=== PATIENT | male | born 1945 | race Caucasian/White ===

== ENCOUNTER 2020-06-26 10:29 | Outpatient (REF) | payer MEDICARE, SELFPAY ==
[2020-06-26 13:50] LABS: MANUAL DIFF FLAG NO
[2020-06-26 13:58] LABS: Basophils Absolute Auto 0.1 X10*3/uL (0.0-0.2); Basophils Percent Auto 1.4 % (0-2); Eosinophils Absolute Auto 0.4 X10*3/uL (0.0-0.4); Hematocrit 40.5 % (42-52); Hemoglobin 13.4 g/dl (14.0-18.0); Imm Gran Abs Auto 0.01 X10*3/uL (0.00-0.03); Imm Gran Pct Auto 0.2 % (0.0-0.4); Lymphocytes Absolute Auto 1.6 X10*3/uL (1.2-4.9); Lymphocytes Percent Auto 26.1 % (20-40); Mean Corpuscular HGB Conc 33.1 g/dl (31.0-36.0); Mean Corpuscular Hemoglobin 32.3 pg (27.0-33.0); Mean Corpuscular Volume 97.6 fL (80-98); Mean Platelet Volume 10.7 fL (9.4-12.4); Monocytes Absolute Auto 0.9 X10*3/uL (0.1-1.2); Monocytes Percent Auto 14.8 % (2-11); Neutrophils Absolute Auto 3.2 X10*3/uL (2.0-8.3); Neutrophils Percent Auto 50.5 % (45-73); Platelet Count 353 X10*3/uL (160-400); Red Blood Count 4.15 X10*6/uL (4.60-5.80); White Blood Count 6.3 X10*3/uL (4.8-10.8)
[2020-06-26 14:40] LABS: Alanine Aminotransferase 21 U/L (0-40); Albumin Level 4.5 g/dL (3.5-5.0); Alkaline Phosphatase 72 U/L (39-117); Anion Gap 15 (12-20); Aspartate Amino Transferase 23 U/L (5-37); Bilirubin Total 0.8 mg/dL (0.0-1.0); Blood Urea Nitrogen 14 mg/dL (9-16); Calcium 9.2 mg/dL (8.4-10.2); Carbon Dioxide 28 mmol/L (22-29); Chloride 99 mmol/L (96-108); Cholesterol 160 mg/dL; Estimated Glomerular Filt Rate > 60; Glucose Fasting 101 mg/dL (60-99); HDL Cholesterol 84 mg/dL; LDL Cholesterol Calculated 68 mg/dl; Potassium 4.9 mmol/l (3.3-5.1); Sodium 137 mmol/L (135-145); Total Protein 7.7 g/dL (6.5-8.0); Triglycerides 44 mg/dL
== END 2020-06-26 10:30 | disposition home or self-care (01) ==
LOC: HO.HMGCLDS 10:29
PROVIDERS: PCP Internal Medicine; Visit Provider Internal Medicine
DX: I25.10 Atherosclerotic heart disease of native coronary artery without angina pectoris (principal); I10 Essential (primary) hypertension; E78.00 Pure hypercholesterolemia, unspecified; K21.9 Gastro-esophageal reflux disease without esophagitis
CPT/HCPCS: 36415; 80053; 80061; 85025

== ENCOUNTER 2020-07-04 14:00 | Outpatient (REF) | payer MEDICARE, SELFPAY ==
--- NOTE | 2020-07-04 14:01 | XR_ITS ---
EXAMINATION: XR SHOULDER, RIGHT CLINICAL INFORMATION: Pain. COMPARISON: None. TECHNIQUE: AP external rotation, Grashey, scapular Y, and axillary views of the right shoulder. FINDINGS: There is mild cephalic migration of humeral head in relation to the glenoid. Mild reduction of the right AC joint space is seen. No visible fracture, dislocation or loose bodies. XR/XR shoulder RT min 2V IMPRESSION: Mild degenerative changes right AC joint. Cephalic migration of humeral head in relation to the glenoid, suspicious for degeneration of rotator cuff. Correlate with MRI right shoulder.
== END 2020-07-04 14:01 | disposition home or self-care (01) ==
LOC: HO.HOSX 14:00
PROVIDERS: PCP Internal Medicine; Referring Provider Internal Medicine; Visit Provider Orthopaedic Surgery
DX: M25.511 Pain in right shoulder (principal); M75.101 Unspecified rotator cuff tear or rupture of right shoulder, not specified as traumatic; M12.811 Other specific arthropathies, not elsewhere classified, right shoulder
CPT/HCPCS: 20610; 73030; 99212; J1040

== ENCOUNTER 2020-09-19 11:13 | Outpatient (REF) | payer MEDICARE, SELFPAY ==
[2020-09-19 15:09] LABS: Glucose Urine UA NEG (NEG); Leukocyte Esterase Urine 3+ (NEG); Nitrite Urine NEG (NEG); PH 7.5 (5.0-8.0); Specific Gravity - Urine 1.015 (1.005-1.025); Urine Blood 1+ (NEG); Urine Ketones NEG (NEG); Urine Protein TRACE MG/DL (NEG-TRACE)
[2020-09-19 15:14] LABS: Appearance Urine CLOUDY; Color Urine YELLOW
[2020-09-19 15:22] LABS: Squamous Epithelial Cell Urine TRACE /LPF; WBC Urine TNTC /HPF (0-4)
[2020-09-19 15:23] LABS: Bacteria Urine 1+ /LPF
== END 2020-09-19 11:14 | disposition home or self-care (01) ==
LOC: HO.HMGCLDS 11:13
PROVIDERS: PCP Internal Medicine; Visit Provider Internal Medicine
DX: R35.0 Frequency of micturition (principal)
CPT/HCPCS: 81001; 87086

== ENCOUNTER 2020-10-05 13:30 | Outpatient (REF) | payer MEDICARE, SELFPAY ==
--- NOTE | ~2020-10-05 | XR_ITS ---
EXAMINATION: XR PELVIS XR SACRUM AND COCCYX XR SACROILIAC JOINTS CLINICAL INFORMATION: Traumatic coccydynia. COMPARISON: None TECHNIQUE: AP pelvis 1 view. SI joints 2 views, and sacrum and coccyx 3 views. FINDINGS: AP PELVIS: There is mild reduction in bilateral hip joint space. SI joint space is preserved. No visible fracture, lytic process seen. There is a large enthesophyte along the anterior-inferior iliac spine likely old avulsion injury. There are vascular calcifications seen bilaterally. Mild degenerative disc changes at L4-L5 and L5-S1 disc levels are noted. BILATERAL SI JOINTS: The SI joint space is preserved with no bony erosive changes or sclerosis. No lytic process. SACRUM AND COCCYX: There is mild osteopenia. No visible lytic or sclerotic process seen. There is no fracture seen either. 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 There is a moderate-sized anterior-inferior enthesophyte. Bilateral SI joint space is preserved. There is no acute fracture or lytic process involving the sacrum or coccyx.
--- NOTE | ~2020-10-05 | XR_ITS ---
EXAMINATION: XR PELVIS XR SACRUM AND COCCYX XR SACROILIAC JOINTS CLINICAL INFORMATION: Traumatic coccydynia. COMPARISON: None TECHNIQUE: AP pelvis 1 view. SI joints 2 views, and sacrum and coccyx 3 views. FINDINGS: AP PELVIS: There is mild reduction in bilateral hip joint space. SI joint space is preserved. No visible fracture, lytic process seen. There is a large enthesophyte along the anterior-inferior iliac spine likely old avulsion injury. There are vascular calcifications seen bilaterally. Mild degenerative disc changes at L4-L5 and L5-S1 disc levels are noted. BILATERAL SI JOINTS: The SI joint space is preserved with no bony erosive changes or sclerosis. No lytic process. SACRUM AND COCCYX: There is mild osteopenia. No visible lytic or sclerotic process seen. There is no fracture seen either. XR/XR sacrum coccyx min 2V IMPRESSION: Mild degenerative arthritic changes bilateral hip joints. There is a moderate-sized anterior-inferior enthesophyte. Bilateral SI joint space is preserved. There is no acute fracture or lytic process involving the sacrum or coccyx.
--- NOTE | ~2020-10-05 | XR_ITS ---
EXAMINATION: XR PELVIS XR SACRUM AND COCCYX XR SACROILIAC JOINTS CLINICAL INFORMATION: Traumatic coccydynia. COMPARISON: None TECHNIQUE: AP pelvis 1 view. SI joints 2 views, and sacrum and coccyx 3 views. FINDINGS: AP PELVIS: There is mild reduction in bilateral hip joint space. SI joint space is preserved. No visible fracture, lytic process seen. There is a large enthesophyte along the anterior-inferior iliac spine likely old avulsion injury. There are vascular calcifications seen bilaterally. Mild degenerative disc changes at L4-L5 and L5-S1 disc levels are noted. BILATERAL SI JOINTS: The SI joint space is preserved with no bony erosive changes or sclerosis. No lytic process. SACRUM AND COCCYX: There is mild osteopenia. No visible lytic or sclerotic process seen. There is no fracture seen either. 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 There is a moderate-sized anterior-inferior enthesophyte. Bilateral SI joint space is preserved. There is no acute fracture or lytic process involving the sacrum or coccyx.
== END 2020-10-05 13:31 | disposition home or self-care (01) ==
LOC: HO.HMGCX 13:30
PROVIDERS: PCP Internal Medicine; Visit Provider Internal Medicine
DX: M53.3 Sacrococcygeal disorders, not elsewhere classified (principal)
CPT/HCPCS: 72170; 72200; 72220

== ENCOUNTER → 2020-10-16 11:36 | Outpatient (BNVA) | payer MEDICARE, SELFPAY | PROVIDERS: PCP Internal Medicine; Visit Provider Urology | DX: Z13.89 Encounter for screening for other disorder (principal) | CPT/HCPCS: 99202 ==

== ENCOUNTER → 2020-12-05 13:55 | Outpatient (BNVA) | payer MEDICARE, SELFPAY | PROVIDERS: Visit Provider Urology | DX: N32.3 Diverticulum of bladder (principal) | CPT/HCPCS: 52000; 99212 ==

== ENCOUNTER 2021-07-08 10:07 | Outpatient (REF) | payer MEDICARE, SELFPAY ==
[2021-07-08 11:24] LABS: MANUAL DIFF FLAG NO
[2021-07-08 11:44] LABS: Basophils Absolute Auto 0.1 X10*3/uL (0.0-0.2); Basophils Percent Auto 0.5 % (0-2); Eosinophils Absolute Auto 0.5 X10*3/uL (0.0-0.4); Eosinophils Percent Auto 3.8 % (0-4); Hematocrit 39.1 % (42.0-52.0); Hemoglobin 12.9 g/dl (14.0-18.0); Imm Gran Abs Auto 0.05 X10*3/uL (0.00-0.03); Imm Gran Pct Auto 0.4 % (0.0-0.4); Lymphocytes Absolute Auto 1.3 X10*3/uL (1.2-4.9); Lymphocytes Percent Auto 10.9 % (20-40); Mean Corpuscular Hemoglobin 31.3 pg (27.0-33.0); Mean Corpuscular Volume 94.9 fL (80.0-98.0); Mean Platelet Volume 11.2 fL (9.4-12.4); Monocytes Absolute Auto 1.1 X10*3/uL (0.1-1.2); Monocytes Percent Auto 9.2 % (2-11); Neutrophils Absolute Auto 9.1 x10*3/uL (2.0-8.3); Neutrophils Percent Auto 75.2 % (45-73); Platelet Count 302 X10*3/uL (160-400); Red Blood Count 4.12 X10*6/uL (4.60-5.80); Red Cell Distribution Width 12.3 % (11.0-16.0); White Blood Count 12.1 X10*3/uL (4.8-10.8)
[2021-07-08 11:50] LABS: Appearance Urine CLEAR; Color Urine YELLOW; Glucose Urine UA NEG (NEG); Leukocyte Esterase Urine NEG (NEG); Nitrite Urine NEG (NEG); PH 6.5 (5.0-8.0); Specific Gravity - Urine 1.015 (1.005-1.025); Urine Blood NEG (NEG); Urine Ketones NEG (NEG); Urine Protein NEG (NEG-TRACE)
[2021-07-08 11:57] LABS: Alanine Aminotransferase 18 U/L (0-40); Albumin Level 4.2 g/dL (3.5-5.0); Alkaline Phosphatase 70 U/L (39-117); Anion Gap 11 (12-20); Aspartate Amino Transferase 20 U/L (5-37); Blood Urea Nitrogen 11 mg/dL (9-16); Calcium 8.7 mg/dL (8.4-10.2); Carbon Dioxide 27 mmol/L (22-29); Chloride 103 mmol/L (96-108); Cholesterol 142 mg/dL; Estimated Glomerular Filt Rate > 60; Glucose Fasting 96 mg/dL (60-99); HDL Cholesterol 77 mg/dL; LDL Cholesterol Calculated 54 mg/dl; Potassium 4.4 mmol/L (3.3-5.1); Sodium 137 mmol/L (135-145); Total Protein 7.3 g/dL (6.5-8.0); Triglycerides 55 mg/dL
[2021-07-08 12:30] LABS: Thyroid Stimulating Hormone 1.01 uIU/mL (0.32-4.0); Vitamin D 25-OH Total 52.3 ng/mL (>30)
[2021-07-08 14:26] LABS: Amorphous Sediment Urine TRACE /LPF; RBC Urine 0 /HPF (0); WBC Urine 0-2 /HPF (0-4)
== END 2021-07-08 10:08 | disposition home or self-care (01) ==
LOC: HO.HMGCLDS 10:07
PROVIDERS: PCP Internal Medicine; Visit Provider Internal Medicine
DX: N40.1 Benign prostatic hyperplasia with lower urinary tract symptoms (principal); I25.10 Atherosclerotic heart disease of native coronary artery without angina pectoris; E78.00 Pure hypercholesterolemia, unspecified; I10 Essential (primary) hypertension; Z12.5 Encounter for screening for malignant neoplasm of prostate
CPT/HCPCS: 36415; 80053; 80061; 81001; 82306; 84153; 84443; 85025

== ENCOUNTER 2021-07-12 14:39 | Outpatient (REF) | payer MEDICARE, SELFPAY ==
--- NOTE | ~2021-07-12 | CT_ITS ---
EXAMINATION: CT CHEST SCREENING CLINICAL INFORMATION: Former smoker. 54 pack-year history. COMPARISON: Previous chest x-ray and chest CT July 2013 TECHNIQUE: Multidetector volumetric CT imaging of the chest is performed without contrast using low dose technique. Additional 2D coronal and sagittal reformatted images and axial 3D maximum intensity projection (MIP) images are generated on the CT workstation. This CT examination was performed using dose optimization techniques as appropriate, variously including the following: *Automated exposure control *Adjustment of mA and/or kV according to patient size (this includes techniques or standardized protocols for targeted exams where dose is matched to indication/reason for exam; i.e. extremities or head) *Use of iterative reconstruction technique DLP: 54 mGy-cm FINDINGS: LUNGS: There is evidence of paraseptal emphysema. There is a 3 mm peripheral or subpleural right upper lobe nodule axial image 108 series 5. There were several clustered areas of increased groundglass attenuation in the left lower lobe. Largest measures 8 mm there is linear scarring or subsegmental atelectasis at the lung bases. Axial image 251 series 5. 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 The heart is upper normal in size. The thoracic aorta is upper normal in size and tortuous. There is no pericardial effusion. The thoracic aorta is normal in caliber. There are no enlarged hilar or mediastinal lymph nodes. There may be a small hiatal hernia. PLEURA: There is no pleural effusion. No pleural mass or thickening. AXILLA: No lymphadenopathy. UPPER ABDOMEN: There is diverticulosis of the colon. OSSEOUS STRUCTURES: There are degenerative changes of the spine. There is a L1 vertebral body compression fracture that is new in the interval from 2013. There are median sternotomy wires. CT/CT lung screening IMPRESSION: Mild emphysema. Small solid nodules or micronodules and several clustered groundglass attenuation left lower lobe nodules, largest measuring 8 mm. Post-CABG changes. L1 vertebral body compression fracture. This does not appear acute but is new in the interval from 2013 exams. ASSESSMENT: Lung-RADS category 2: Benign RECOMMENDATION: Annual low-dose chest CT follow-up recommended.
== END 2021-07-12 14:40 | disposition home or self-care (01) ==
LOC: HO.CT 14:39
PROVIDERS: Visit Provider Physician Assistant Medical
DX: Z12.2 Encounter for screening for malignant neoplasm of respiratory organs (principal); Z87.891 Personal history of nicotine dependence
CPT/HCPCS: 71271; G0296

== ENCOUNTER 2021-08-02 07:58 | Outpatient (REF) | payer MEDICARE, SELFPAY ==
--- NOTE | ~2021-08-02 | US_ITS ---
EXAMINATION: US RETROPERITONEAL LIMITED (AORTA) CLINICAL INFORMATION: Hypertension. Hypercholesterolemia. Coronary artery disease. COMPARISON: CT chest 08/12/2013. CT abdomen and pelvis 06/13/2015. TECHNIQUE: Mclaughlin-scale, color Doppler and spectral Doppler evaluation of the abdominal aorta. Technically limited study secondary to bowel gas. FINDINGS: There is fusiform dilatation of the abdominal aorta with 2 focal areas of increased diameter, none measuring more than 3 cm. The measurements of the aorta in maximum AP and transverse dimensions respectively are as follows: Proximal: 3.1 x 3.1 cm. Mid: 2.9 x 2.9 cm. Distal: 2.5 x 2.3 cm. PSV: 74 cm/s. The measurements of the common iliac arteries in maximum AP and TRV dimensions are as follows: Right Common Iliac Artery: 1.3 x 1.6 cm. Left Common Iliac Artery: 1.6 x 1.6 cm. Incidental note made of a posterior bladder diverticulum measuring 6 x 4.5 cm, slightly larger than noted at the time of the prior CT scan. US/US aorta IMPRESSION: 1. Calcific atherosclerotic changes are present with mild fusiform dilatation in 2 areas with a maximal diameter of only 3 cm. 2. Large posterior bladder diverticulum.
== END 2021-08-02 07:59 | disposition home or self-care (01) ==
LOC: HO.US 07:58
PROVIDERS: PCP Internal Medicine; Visit Provider Internal Medicine
DX: I10 Essential (primary) hypertension (principal); E78.00 Pure hypercholesterolemia, unspecified; I25.10 Atherosclerotic heart disease of native coronary artery without angina pectoris
CPT/HCPCS: 76775

== ENCOUNTER → 2021-08-27 09:35 | Outpatient (REF) | payer MEDICARE, SELFPAY ==
--- NOTE | 2021-08-27 09:30 | CA_ITS ---
Transthoracic Echocardiogram Patient (Last, First, Middle): Carlos Buckner D Gender: Male Date of : 1945 Age: 76 Procedure Date: 08/27/2021 Procedure Type: Transthoracic Echocardiogram Location: OP Height: 167.64 cm Weight: 66.68 kg BSA: 1.75 m2 Heart Rate: bpm BP: 118 / 60 mmHg Electrolysis Needle Operator: Referring MD: Jose R Figueroa MD DO Symptoms: I10 HTN I25.10 CAD W/O ANGINA E78.00 HYPERCHOLSETEROLEMIA Study Quality: Fair ECG Rhythm: Sinus with extra beats Conclusions: - Normal left ventricular size and systolic function. - Normal right ventricular cavity size and systolic function. - The left atrium is mildly dilated. Findings Left Ventricle Normal left ventricular size and systolic function. There is moderately increased left ventricular wall thickness. The visually estimated ejection fraction is between 55-60%. There is no evidence of regional wall motion abnormalities. Diastolic function is normal for age. Right Ventricle Normal right ventricular cavity size and systolic function. Atria The left atrium is mildly dilated. Aortic Valve Normal aortic valve structure and function. There is no aortic valve stenosis. There is trace (trivial) aortic valve regurgitation. Mitral Valve Normal mitral valve structure and function. There is trace mitral valve regurgitation. There is no mitral valve stenosis. Pulmonic Valve The pulmonic valve was not well visualized. Tricuspid Valve Normal tricuspid valve structure and function. There is no tricuspid valve regurgitation. Normal right atrial pressure. There is no evidence of pulmonary hypertension. Great Vessels All visible segments of the aorta are normal in size. The pulmonary artery was not well visualized. Venous The inferior vena cava is normal in size and collapses greater than 50% with inspiration. Pericardium/Pleural Normal pericardial structure. There is no evidence of pericardial effusion. Prior Study Comparison No prior study available for comparison. Measurements 2D Linear Measurements IVSd: 1.36 0.6-0.9/0.6-1.0 cm LVIDd: 4.55 3.9-5.3/4.2-5.9 cm LVIDd Index: 2.60 2.4-3.2/2.2-3.1 cm/m2 LVIDs: 3.09 2.0-3.6 cm LVPWd: 1.23 0.7-1.1 cm Ao Root: 3.40 2.1-3.5 cm LA Diam: 4.40 2.7-3.8/3.0-4.0 cm LAIDs Index: 2.51 1.5-2.3 cm/m2 LV Mass: 280.59 67-162/88-224 g LV Mass Index: 160.34 43-95/49-115 g/m2 LVOT Diam: 2.20 3.0+(-)1.3 cm Mitral Valve MV Pk E: 0.52 MV PK A: 0.75 MV Decel Time: 278.00 E/A: 0.70 E'Lateral: 11.40 E'Medial: 6.09 E/E' Med: 8.50 E/E' Lat: 4.50 PHT: 81.00 MVA PHT: 2.72 Decel Geary: 1.86 Aortic Valve AoV Pk Norman: 1.87 AoV Mn Norman: 1.16 AoV VTI: 0.42 AoV Pk Grad: 14.00 Aov Mn Grad: 7.00 EDDA Cont.VTI: 2.35 LVOT LVOT Pk Norman: 1.01 LVOT Mn Norman: 0.64 LVOT VTI: 0.26 LVOT Pk Grad: 4.00 LVOT Mn Grad: 2.00 LVOT Diam: 2.20 LVOT Area: 3.80 Diastolic Function MV Pk E: 0.52 MV Pk A: 0.75 E/A: 0.70 E'Medial: 6.09 E/E' Med: 8.50 E' Laterial: 11.40 E/E' Lat: 4.50 Right Ventricle TAPSE (mm): 21.00 Tricuspid Valve TR Pk Norman: 1.77 TR Pk Grad: 13.00 Great Vessels Aorta Ao Root-2D: 3.40 2.0-3.7 cm Ao Asc: 3.20 2.1-3.4 cm Pulmonary Valve PV Pk Norman: 1.29 Peak PV Grad: 7.00 Updated in Other Vendor System with Status of Final Francisco Shirley MD electronically signed on 08/27/2021 12:43:40 PM with status of Final
== END ==
LOC: HO.CARD 09:35
PROVIDERS: Visit Provider Internal Medicine
DX: I25.10 Atherosclerotic heart disease of native coronary artery without angina pectoris (principal); I10 Essential (primary) hypertension; E78.00 Pure hypercholesterolemia, unspecified
CPT/HCPCS: 93306

== ENCOUNTER → 2021-10-01 11:17 | Outpatient (BNVA) | payer MEDICARE, SELFPAY | PROVIDERS: PCP Internal Medicine; Visit Provider Surgery Vascular Surgery | DX: I71.4 Abdominal aortic aneurysm, without rupture (principal) | CPT/HCPCS: 99212 ==

== ENCOUNTER → 2022-01-13 10:41 | Outpatient (REF) | payer MEDICARE, SELFPAY ==
--- NOTE | ~2022-01-13 | NM_ITS ---
BONE SPECT STUDY OF THE LUMBOSACRAL AND LOWER THORACIC SPINE AND PLANAR IMAGES OF SPINE AND POSTERIOR PELVIS: CLINICAL INDICATION: Back pain, fell, lumbar spine to evaluate for ongoing fracture activity. PROCEDURE: Gamma scintillation camera images of the spine and posterior pelvis were performed 3 hours following the intravenous administration of 30 mCi Tc 99m MDP. Additional SPECT images were also obtained. Single photon emission tomography (SPECT) of the lumbosacral and lower thoracic spine was also performed using a hybrid SPECT/CT scanner acquiring 192 Projections of 30 seconds each over 360 degrees using a noncircular orbit and an acquisition matrix of [id number]. Transverse, coronal and sagittal projections and a cine volume were reconstructed. Nondiagnostic CT images were obtained for attenuation correction and localization. COMPARISON: No previous bone scan is available for comparison. The most recent radiographs available for comparison are of the sacroiliac joints, pelvis, sacrum, and coccyx dated 10/05/2020. FINDINGS: The planar images show a mild thoracolumbar scoliosis with lumbar convexity to the left. There is mildly to moderately increased activity in the L2 and L3 vertebra and in the left posterior elements at L5-S1. No other significant abnormalities are present in the visualized spine. In the other visualized bones there is mildly increased activity in both shoulders, more prominently on the right and faintly in the sternoclavicular joints bilaterally and also faintly in a midline well-healed sternotomy. The kidneys and urinary bladder are well visualized. The SPECT images show moderately increased activity in the superior endplate of L2 and mildly increased activity in the L3 vertebral body. There is mild compression deformity in the superior endplate of L2 and severe compression deformity in the L3 vertebral body on the corresponding CT images. Additional mild abnormalities bilaterally in the posterior elements at L4-L5 and L5-S1 corresponding to facet arthropathy on the CT images is also noted. No other significant abnormalities are present in the lumbosacral spine or posterior pelvis. There are no additional foci of abnormally increased activity visualized in the mid and lower thoracic spine. Incidentally noted is evidence of prior sternotomy with multiple sternal wires visible in the included portions of the lower sternum. NM/NM bone scan limited area IMPRESSION: Compression deformities associated with moderate abnormality in the superior endplate of L2 and less intense but significant abnormal activity in the L3 vertebral body which also shows severe compression deformity on the CT images. Additional mild abnormalities present bilaterally in the posterior elements at L4-L5 and L5-S1 are noted and are likely due to facet arthropathy.
--- NOTE | ~2022-01-13 | NM_ITS ---
BONE SPECT STUDY OF THE LUMBOSACRAL AND LOWER THORACIC SPINE AND PLANAR IMAGES OF SPINE AND POSTERIOR PELVIS: CLINICAL INDICATION: Back pain, fell, lumbar spine to evaluate for ongoing fracture activity. PROCEDURE: Gamma scintillation camera images of the spine and posterior pelvis were performed 3 hours following the intravenous administration of 30 mCi Tc 99m MDP. Additional SPECT images were also obtained. Single photon emission tomography (SPECT) of the lumbosacral and lower thoracic spine was also performed using a hybrid SPECT/CT scanner acquiring 192 Projections of 30 seconds each over 360 degrees using a noncircular orbit and an acquisition matrix of [id number]. Transverse, coronal and sagittal projections and a cine volume were reconstructed. Nondiagnostic CT images were obtained for attenuation correction and localization. COMPARISON: No previous bone scan is available for comparison. The most recent radiographs available for comparison are of the sacroiliac joints, pelvis, sacrum, and coccyx dated 10/05/2020. FINDINGS: The planar images show a mild thoracolumbar scoliosis with lumbar convexity to the left. There is mildly to moderately increased activity in the L2 and L3 vertebra and in the left posterior elements at L5-S1. No other significant abnormalities are present in the visualized spine. In the other visualized bones there is mildly increased activity in both shoulders, more prominently on the right and faintly in the sternoclavicular joints bilaterally and also faintly in a midline well-healed sternotomy. The kidneys and urinary bladder are well visualized. The SPECT images show moderately increased activity in the superior endplate of L2 and mildly increased activity in the L3 vertebral body. There is mild compression deformity in the superior endplate of L2 and severe compression deformity in the L3 vertebral body on the corresponding CT images. Additional mild abnormalities bilaterally in the posterior elements at L4-L5 and L5-S1 corresponding to facet arthropathy on the CT images is also noted. No other significant abnormalities are present in the lumbosacral spine or posterior pelvis. There are no additional foci of abnormally increased activity visualized in the mid and lower thoracic spine. Incidentally noted is evidence of prior sternotomy with multiple sternal wires visible in the included portions of the lower sternum. NM/NM bone SPECT IMPRESSION: Compression deformities associated with moderate abnormality in the superior endplate of L2 and less intense but significant abnormal activity in the L3 vertebral body which also shows severe compression deformity on the CT images. Additional mild abnormalities present bilaterally in the posterior elements at L4-L5 and L5-S1 are noted and are likely due to facet arthropathy.
== END ==
LOC: HO.NUCMED 10:41
PROVIDERS: PCP Internal Medicine; Visit Provider Physical Medicine & Rehabilitation
DX: S32.009S Unspecified fracture of unspecified lumbar vertebra, sequela (principal)
CPT/HCPCS: 78300; 78320; 78803; A9503

== ENCOUNTER → 2022-01-21 09:01 | Outpatient (BNVA) | payer MEDICARE, SELFPAY | PROVIDERS: PCP Internal Medicine; Referring Provider Internal Medicine; Visit Provider Surgery | DX: K40.90 Unilateral inguinal hernia, without obstruction or gangrene, not specified as recurrent (principal) | CPT/HCPCS: 99202 ==

== ENCOUNTER 2022-02-11 09:51 | Outpatient (REF) | payer MEDICARE, SELFPAY ==
[2022-02-11 11:43] LABS: MANUAL DIFF FLAG NO
[2022-02-11 11:58] LABS: Basophils Absolute Auto 0.1 X10*3/uL (0.0-0.2); Basophils Percent Auto 1.1 % (0-2); Eosinophils Absolute Auto 0.6 X10*3/uL (0.0-0.4); Eosinophils Percent Auto 8.6 % (0-4); Hematocrit 39.5 % (42.0-52.0); Hemoglobin 13.2 g/dl (14.0-18.0); Imm Gran Abs Auto 0.02 X10*3/uL (0.00-0.03); Imm Gran Pct Auto 0.3 % (0.0-0.4); Lymphocytes Absolute Auto 1.4 X10*3/uL (1.2-4.9); Lymphocytes Percent Auto 20.1 % (20-40); Mean Corpuscular HGB Conc 33.4 g/dl (31.0-36.0); Mean Corpuscular Hemoglobin 32.2 pg (27.0-33.0); Mean Corpuscular Volume 96.3 fL (80.0-98.0); Mean Platelet Volume 10.9 fL (9.4-12.4); Monocytes Absolute Auto 0.9 X10*3/uL (0.1-1.2); Monocytes Percent Auto 12.6 % (2-11); Neutrophils Absolute Auto 4.1 x10*3/uL (2.0-8.3); Neutrophils Percent Auto 57.3 % (45-73); Platelet Count 305 X10*3/uL (160-400); Red Cell Distribution Width 12.1 % (11.0-16.0); White Blood Count 7.1 X10*3/uL (4.8-10.8)
[2022-02-11 12:19] LABS: Alanine Aminotransferase 22 U/L (0-40); Albumin Level 4.2 g/dL (3.5-5.0); Alkaline Phosphatase 81 U/L (39-117); Anion Gap 14 (12-20); Aspartate Amino Transferase 21 U/L (5-37); Bilirubin Total 0.8 mg/dL (0.0-1.0); Blood Urea Nitrogen 13 mg/dL (9-16); Calcium 9.4 mg/dL (8.4-10.2); Carbon Dioxide 26 mmol/L (22-29); Chloride 101 mmol/L (96-108); Cholesterol 137 mg/dL; Estimated Glomerular Filt Rate > 60; Glucose Fasting 101 mg/dL (60-99); HDL Cholesterol 70 mg/dL; LDL Cholesterol Calculated 54 mg/dl; Potassium 4.5 mmol/L (3.3-5.1); Sodium 136 mmol/L (135-145); Total Protein 7.3 g/dL (6.5-8.0); Triglycerides 68 mg/dL
[2022-02-11 12:31] LABS: Thyroid Stimulating Hormone 1.44 uIU/mL (0.32-4.0)
== END 2022-02-11 09:52 | disposition home or self-care (01) ==
LOC: HO.HMGCLDS 09:51
PROVIDERS: PCP Internal Medicine; Visit Provider Internal Medicine
DX: I10 Essential (primary) hypertension (principal); E78.00 Pure hypercholesterolemia, unspecified; I25.10 Atherosclerotic heart disease of native coronary artery without angina pectoris; N40.1 Benign prostatic hyperplasia with lower urinary tract symptoms; I71.4 Abdominal aortic aneurysm, without rupture
CPT/HCPCS: 36415; 80053; 80061; 82306; 84443; 85025

== ENCOUNTER 2022-04-14 07:15 | Day surgery (SDC) | payer MEDICARE, SELFPAY ==
[2022-04-02 11:04] VITALS: BMI 23.3
--- NOTE | 2022-04-11 13:05 | P.CONAN_ITS ---
Documented by User: Anna De Los Santos NP 04/11/22 13:06 HPI - Anesthesia Eval Consult details Narrative: 76yo M for Right Cataract Extraction IOL Insertion PCP cleared No previous cataract on record [facility] Active Problems Active Problems: All Active Problems (Updated 04/02/22 @ 11:00 by Tena Feliz RN) Rotator cuff tear arthropathy of right shoulder (Acute) Urinary urgency (Acute) Urinary frequency (Acute) Bladder outlet obstruction (Acute) Bladder diverticulum (Acute) AAA (abdominal aortic aneurysm) without rupture (Acute) Left inguinal hernia (Acute) Personal history of nicotine dependence (Acute) Past Medical History Medical History Abdominal aortic aneurysm CAD (coronary artery disease) Depression with anxiety GERD (gastroesophageal reflux disease) History of fracture of left hip Hypercholesterolemia Hypertension, essential, benign Personal history of nicotine dependence Rotator cuff arthropathy of right shoulder Tubular adenoma of colon Family History Family History Father Lung cancer Surgical History Surgical History History of appendectomy (~2014) History of colonoscopy History of esophagogastroduodenoscopy (EGD) History of left inguinal hernia repair History of prostate biopsy S/P CABG x 5 (~2005) Social History Social History Are you a primary laboratory animal care veterinarian to a significant other at home: No Do you presently have visiting nurse or other home services: No Alcohol intake: never Patient Tobacco Use Status: Former Tobacco user Quit Date: 2008 Tobacco use type: Cigarette Years Smoked: (onset 10yo, 1-2.5ppd x54pyh, 100pyh, quit 2008) Use of substances other than those prescribed or required for medical reasons: No Have you been hit, kicked, punched, or otherwise hurt by someone within the past year? If so, by whom?: No Are you DNR?: No Advance Directives: No (states has HCP but no official form) Advance Directives Information Provided: Yes (brochure mailed) Advance Directives on File: No Recently lost weight without trying: No Eating poorly because of decreased appetite: No Nutrition Risks: Surgical patient >75years Poor oral hygiene: No Current occupational status: retired Current occupation: Left Handed Meds Allergies Allergy/AdvReac Type Severity Reaction Status Date / Time amoxicillin Allergy Intermediate Rash Verified 04/02/22 11:06 levofloxacin [Levaquin] Allergy Intermediate rash, Verified 04/02/22 11:06 weakness Home Medications Medication Instructions Recorded Confirmed Last Taken Type amlodipine 5 mg tablet 5 mg PO DAILY 07/03/20 04/02/22 04/13/22 History metoprolol succinate 50 mg 50 mg PO DAILY 07/03/20 04/02/22 04/13/22 History tablet,extended release 24 hr omeprazole 20 mg capsule,delayed 20 mg PO DAILY 07/03/20 04/02/22 04/13/22 History release atorvastatin 80 mg tablet 80 mg PO QAM 01/21/22 04/02/22 04/13/22 History tamsulosin 0.4 mg capsule 0.8 mg PO BEDTIME 01/21/22 04/02/22 04/13/22 History aspirin 81 mg tablet,delayed 81 mg PO DAILY 04/02/22 04/02/22 04/12/22 History release finasteride 5 mg tablet 1 tab PO QAM 04/02/22 04/02/22 04/13/22 History Exam Exam Date and Time: April 11, 2022 1305 Height,Weight and Vital Signs: Height 5 ft 6 in Weight 65.771 kg Pertinent Lab Results Pertinent Lab Results: Laboratory Tests 02/11/22 02/11/22 10:04 10:04 WBC 7.1 Hgb 13.2 L Hct 39.5 L Plt Count 305 Sodium 136 Potassium 4.5 Chloride 101 Carbon Dioxide 26 BUN 13 Creatinine 0.81 Narrative Narrative: ECHO 07/2021 Conclusions: - Normal left ventricular size and systolic function.? - Normal right ventricular cavity size and systolic function.? ? - The left atrium is mildly dilated.? Assessment and Plan Assessment Anesthesia Assessment: Chart Reviewed Documented by User: Alison Albert MD 04/14/22 10:13 [facility] Past Medical History Medical History Abdominal aortic aneurysm CAD (coronary artery disease) Depression with anxiety GERD (gastroesophageal reflux disease) History of fracture of left hip Hypercholesterolemia Hypertension, essential, benign Personal history of nicotine dependence Rotator cuff arthropathy of right shoulder Tubular adenoma of colon Functional capacity: independent ambulation Family History Family History Father Lung cancer Family history of problems with anesthesia: No Surgical History Surgical History History of appendectomy (~2014) History of colonoscopy History of esophagogastroduodenoscopy (EGD) History of left inguinal hernia repair History of prostate biopsy S/P CABG x 5 (~2005) History of Problems with Anesthesia: No Social History Social History Are you a primary laboratory animal care veterinarian to a significant other at home: No Do you presently have visiting nurse or other home services: No Alcohol intake: never Patient Tobacco Use Status: Former Tobacco user Quit Date: 2008 Tobacco use type: Cigarette Years Smoked: (onset 10yo, 1-2.5ppd x54pyh, 100pyh, quit 2008) Use of substances other than those prescribed or required for medical reasons: No Have you been hit, kicked, punched, or otherwise hurt by someone within the past year? If so, by whom?: No Are you DNR?: No Advance Directives: No ([facility] has HCP but no official form) Advance Directives Information Provided: Yes (brochure mailed) Advance Directives on File: No Recently lost weight without trying: No Eating poorly because of decreased appetite: No Nutrition Risks: Surgical patient >75years Poor oral hygiene: No Current occupational status: retired Current occupation: Left Handed Meds Allergies Allergy/AdvReac Type Severity Reaction Status Date / Time amoxicillin Allergy Intermediate Rash Verified 04/02/22 11:06 levofloxacin [Levaquin] Allergy Intermediate rash, Verified 04/02/22 11:06 weakness Home Medications Medication Instructions Recorded Confirmed Last Taken Type amlodipine 5 mg tablet 5 mg PO DAILY 07/03/20 04/02/22 04/13/22 History metoprolol succinate 50 mg 50 mg PO DAILY 07/03/20 04/02/22 04/13/22 History tablet,extended release 24 hr omeprazole 20 mg capsule,delayed 20 mg PO DAILY 07/03/20 04/02/22 04/13/22 History release atorvastatin 80 mg tablet 80 mg PO QAM 01/21/22 04/02/22 04/13/22 History tamsulosin 0.4 mg capsule 0.8 mg PO BEDTIME 01/21/22 04/02/22 04/13/22 History aspirin 81 mg tablet,delayed 81 mg PO DAILY 04/02/22 04/02/22 04/12/22 History release finasteride 5 mg tablet 1 tab PO QAM 04/02/22 04/02/22 04/13/22 History Exam Airway Mallampati Class: II Neck ROM: Full Heart: RR Lungs: CTA Assessment and Plan Final Anesthetic Review Family History of Problems with Anesthesia: No History of Problems with Anesthesia: No NPO: Yes ASA Class: II Final Preanesthetic Review: No Changes in Pt Med Stat, Meds/Allgs Chart Reviewed, Consent Obtained/Reviewed and Anes Risks/Benef Reviewed Patient Risk: Low Procedure Risk: Low Anesthetic Plan Anesthetic Plan: MAC: Disposition: Standard PACU
[2022-04-14 08:14] VITALS: BP 159/71; PULSE 53; RESP 16; TEMP 36.6; O2SAT 96
[2022-04-14] MEDS: Tetracaine HCl/PF 0.5% Oph Sol 4 ML DROPS 1 DROP EYE-RIGHT (08:16)
[2022-04-14] MEDS: Cyclopentolate 1 % Ophth Sol 2 ML DRPBTL 1 DROP EYE-RIGHT ×3 (08:17→08:30)
[2022-04-14] MEDS: Tropicamide 1 % Ophth Sol 3 ML BTL 1 DROP EYE-RIGHT ×3 (08:21→08:31)
[2022-04-14] MEDS: Lactated Ringers 500 ML 50 ML IV (08:21)
[2022-04-14] MEDS: Phenylephrine HCL 2.5% Oph SoL 2 ML BOTTLE 1 DROP EYE-RIGHT ×3 (08:23→08:33)
--- NOTE | 2022-04-14 10:23 | HO.PNOPHT ---
Ophthalmology Procedure Procedure Date of Service: 04/14/22 Ophthalmology Viscoelastic: Healgayathri Solarest Dual Pack Pro Ophthalmology Lenses: TECNIS [id number] (17.5) Procedure Notes: PREOPERATIVE DIAGNOSIS: Decreased visual acuity right eye secondary to cataract POSTOPERATIVE DIAGNOSIS: Same PROCEDURE: Right cataract extraction with intraocular lens insertion SURGEON: Leighton Rodriguez M.D. ANESTHESIA: Topical/MAC ESTIMATED BLOOD LOSS: None COMPLICATIONS: None After obtaining informed consent, the patient was brought to the operating room suite and placed in the supine position. After adequate sedation per anesthesia, topical drops of Tetracaine were given to the right eye. The eye was then prepped and draped in the usual sterile fashion. The operating room microscope was then positioned over the operative eye and a lid speculum placed. A paracentesis was created. Viscoelastic was then instilled into the anterior chamber. A three plane incision was then created temporally, utilizing a 2.85 mm keratome. Capsulotomy forceps were then utilized to create a circular tear capsulotomy. Hydrodissection and hydrodelineation were carried out until adequate mobilization of the nucleus occurred. Phacoemulsification was then utilized to remove the dense central nucleus followed by removal of the cortical material utilizing the automated aspiration irrigation unit. Viscoelastic was instilled into the posterior capsular bag followed by placement of a posterior chamber intraocular lens without difficulty. The residual Viscoelastic was then removed utilizing the automated IA machine. The wound was checked and found to be watertight. The patient tolerated the procedure well and the lid speculum was removed. Intracameral injection of Vigamox 0.1 mL followed by a subtenon injection of Kenalog-40 0.2 mL were administered. The patient will be seen in the a.m.
[2022-04-14 10:26] VITALS: BP 157/82; PULSE 61; RESP 16; TEMP 36.5; O2SAT 97
--- NOTE | 2022-04-14 10:51 | HO.POSTANES ---
Post Anesthesia Evaluation Post Anesthesia Evaluation Vital Signs: Vital Signs Temp Pulse Resp BP Pulse Ox O2 Del Method 04/14/22 10:26 97.7 F 61 16 157/82 H 97 Room Air 04/14/22 08:14 97.9 F 53 16 159/71 H 96 Room Air Anesthesia: Monitored Mental Status: Awake Pain Control: Satisfactory Nausea/Vomiting: None Hydration: Adequate Anesthesia-Related Issues: No Anes. Related Issues
== END 2022-04-14 10:44 | disposition home or self-care (01) ==
PROVIDERS: PCP Internal Medicine; Visit Provider Ophthalmology
PROC: (CPT 66985; principal; 2022-04-14 10:30)
DX: H25.11 Age-related nuclear cataract, right eye (principal); H52.4 Presbyopia; Q14.1 Congenital malformation of retina; I25.10 Atherosclerotic heart disease of native coronary artery without angina pectoris; I10 Essential (primary) hypertension; Z95.1 Presence of aortocoronary bypass graft; Z98.61 Coronary angioplasty status; K21.9 Gastro-esophageal reflux disease without esophagitis; E78.00 Pure hypercholesterolemia, unspecified; Z79.82 Long term (current) use of aspirin; Z79.899 Other long term (current) drug therapy; Z88.1 Allergy status to other antibiotic agents; Z87.891 Personal history of nicotine dependence
CPT/HCPCS: 66984; J2250; J3300; V2632

== ENCOUNTER 2022-04-28 06:57 | Day surgery (SDC) | payer MEDICARE, SELFPAY ==
[2022-04-02 11:07] VITALS: BMI 23.3
--- NOTE | 2022-04-24 12:35 | MHC.SHP ---
Pre-Procedural Eval Section A Date of Service: 04/24/22 The patient is an INPATIENT: No Changes since office visit: No Cold of Flu in the past 2 weeks, No New Medical Problems, No Changes in Medication and No Patient answered all questions The History & Physical has been completed within 30 days and I have reviewed it.: Yes Section B Chief Complaint: cataract Allergies: Allergies Allergy/AdvReac Type Severity Reaction Status Date / Time amoxicillin Allergy Intermediate Rash Verified 04/02/22 11:06 levofloxacin [Levaquin] Allergy Intermediate rash, Verified 04/02/22 11:06 weakness Plan Diagnosis/Plan: Unchanged I have reviewed the history and physical and performed a pertinent physical examination on my patient. No changes have occurred unless specified.
[2022-04-28 07:37] VITALS: BP 171/75; PULSE 58; RESP 16; TEMP 36.4; O2SAT 97
[2022-04-28] MEDS: Tetracaine HCl/PF 0.5% Oph Sol 4 ML DROPS 1 DROP EYE-LEFT (07:45)
--- NOTE | 2022-04-28 07:47 | P.CONAN_ITS ---
HPI - Anesthesia Eval Consult details Narrative: left catract IOL PMFSH Active Problems Active Problems: All Active Problems (Updated 04/02/22 @ 11:00 by Tena Feliz RN) Rotator cuff tear arthropathy of right shoulder (Acute) Urinary urgency (Acute) Urinary frequency (Acute) Bladder outlet obstruction (Acute) Bladder diverticulum (Acute) AAA (abdominal aortic aneurysm) without rupture (Acute) Left inguinal hernia (Acute) Personal history of nicotine dependence (Acute) Past Medical History Medical History Abdominal aortic aneurysm CAD (coronary artery disease) Depression with anxiety GERD (gastroesophageal reflux disease) History of fracture of left hip Hypercholesterolemia Hypertension, essential, benign Personal history of nicotine dependence Rotator cuff arthropathy of right shoulder Tubular adenoma of colon Family History Family History Father Lung cancer Family history of problems with anesthesia: No Surgical History Surgical History History of appendectomy (~2014) History of colonoscopy History of esophagogastroduodenoscopy (EGD) History of left inguinal hernia repair History of prostate biopsy S/P CABG x 5 (~2005) History of Problems with Anesthesia: No Social History Social History Are you a primary care management associate to a significant other at home: No Do you presently have visiting nurse or other home services: No Alcohol intake: never Patient Tobacco Use Status: Former Tobacco user Quit Date: 2008 Tobacco use type: Cigarette Years Smoked: (onset 10yo, 1-2.5ppd x54pyh, 100pyh, quit 2008) Use of substances other than those prescribed or required for medical reasons: No Have you been hit, kicked, punched, or otherwise hurt by someone within the past year? If so, by whom?: No Are you DNR?: No Advance Directives: No (\) Advance Directives Information Provided: Yes (brochure mailed) Advance Directives on File: No Recently lost weight without trying: No Eating poorly because of decreased appetite: No Nutrition Risks: Surgical patient >75years Poor oral hygiene: No Current occupational status: retired Current occupation: Left Handed Meds Allergies Allergy/AdvReac Type Severity Reaction Status Date / Time amoxicillin Allergy Intermediate Rash Verified 04/02/22 11:06 levofloxacin [Levaquin] Allergy Intermediate rash, Verified 04/02/22 11:06 weakness Active Medications: Current Medications Cyclopentolate HCl (Cyclopentolate 1 % Ophth Tori 2 Ml Drpbtl) 1 drop EYE-LEFT Q5M PERLITA Stop: 04/28/22 07:56 Lactated Ringer's (Lr) 500 mls @ 50 mls/hr IVCONT .Q10H PERLITA Ketorolac Tromethamine (Ketorolac Tromethamine 0.5% Op 3 Ml Drops) 1 drop EYE- LEFT Q5M PERLITA Stop: 04/28/22 07:56 Phenylephrine HCl (Phenylephrine Hcl 2.5% Oph Tori 2 Ml Bottle) 1 drop EYE-LEFT Q5M PERLITA Stop: 04/28/22 07:56 Povidone Iodine (Povidone Iodine 5 % Ophth Soln 30 Ml Bottle) 1 appl EYE-LEFT PREOP PRN PRN Reason: Pre-Op Surgical Implant Prophy Tropicamide (Tropicamide 1 % Ophth Tori 3 Ml Btl) 1 drop EYE-LEFT Q5M PERLITA Stop: 04/28/22 07:56 Home Medications Medication Instructions Recorded Confirmed Last Taken Type amlodipine 5 mg tablet 5 mg PO DAILY 07/03/20 04/02/22 04/13/22 History metoprolol succinate 50 mg 50 mg PO DAILY 07/03/20 04/02/22 04/13/22 History tablet,extended release 24 hr omeprazole 20 mg capsule,delayed 20 mg PO DAILY 07/03/20 04/02/22 04/13/22 History release atorvastatin 80 mg tablet 80 mg PO QAM 01/21/22 04/02/22 04/13/22 History tamsulosin 0.4 mg capsule 0.8 mg PO BEDTIME 01/21/22 04/02/22 04/13/22 History aspirin 81 mg tablet,delayed 81 mg PO DAILY 04/02/22 04/02/22 04/12/22 History release finasteride 5 mg tablet 1 tab PO QAM 04/02/22 04/02/22 04/13/22 History Exam Exam Date and Time: April 28, 2022 0747 Height,Weight and Vital Signs: Height 5 ft 6 in Weight 65.771 kg Last Vital Signs Temp 97.6 F 04/28/22 07:37 Pulse 58 04/28/22 07:37 Resp 16 04/28/22 07:37 BP 171/75 H 04/28/22 07:37 Pulse Ox 97 04/28/22 07:37 O2 Del Method 04/28/22 07:37 Airway Mallampati Class: II TM Dist: >3cm Neck ROM: Full Loose/Missing/Broken Teeth: No Heart: rrr+[id number] Lungs: cta b/l Assessment and Plan Assessment Anesthesia Assessment: Anesthesia Plan Discussed and Chart Reviewed Final Anesthetic Review Family History of Problems with Anesthesia: No History of Problems with Anesthesia: No NPO: Yes ASA Class: III Final Preanesthetic Review: No Changes in Pt Med Stat, Meds/Allgs Chart Reviewed, Consent Obtained/Reviewed and Anes Risks/Benef Reviewed Patient Risk: Intermediate Procedure Risk: Low Assessment/Block/Sedation in SS: Assess/Block/Sedation-SS Anesthetic Plan Anesthetic Plan: MAC: and Agree w/ Assess. and Plan Disposition: Standard PACU
[2022-04-28] MEDS: Lactated Ringers 500 ML 50 ML IVCONT (07:50)
[2022-04-28] MEDS: Cyclopentolate 1 % Ophth Sol 2 ML DRPBTL 1 DROP EYE-LEFT ×3 (07:51→07:58)
--- NOTE | 2022-04-28 07:51 | HO.PNOPHT ---
Ophthalmology Procedure Procedure Date of Service: 04/28/22 Ophthalmology Viscoelastic: Healgayathri Solarest Dual Pack Pro Ophthalmology Lenses: TECHUMAIRA [id number] (17) Procedure Notes: PREOPERATIVE DIAGNOSIS: Decreased visual acuity left eye secondary to cataract POSTOPERATIVE DIAGNOSIS: Same PROCEDURE: Left cataract extraction with intraocular lens insertion SURGEON: Leighton Rodriguez M.D. ANESTHESIA: Topical/MAC ESTIMATED BLOOD LOSS: None COMPLICATIONS: None After obtaining informed consent, the patient was brought to the operation room suite and placed in the supine position. After adequate sedation per anesthesia, topical drops of Tetracaine were given to the left eye. The eye was then prepped and draped in the usual sterile fashion. The operating room microscope was then positioned over the operative eye and a lid speculum placed. A paracentesis was created. Viscoelastic was then instilled into the anterior chamber. A three plane incision was then created temporally, utilizing a 2.85 mm keratome. Capsulotomy forceps were then utilized to create a circular tear capsulotomy. Hydrodissection and hydrodelineation were carried out until adequate mobilization of the nucleus occurred. Phacoemulsification was then utilized to remove the dense central nucleus followed by removal of the cortical material utilizing the automated aspiration irrigation unit. Viscoat elastic was instilled into the posterior capsular bag followed by placement of a posterior chamber intraocular lens without difficulty. The residual Viscoat elastic was then removed utilizing the automated IA machine. The wound was check and found to be watertight. The patient tolerated the procedure well and the lid speculum was removed. Intracameral injection of Vigamox 0.1 mL followed by a subtenon injection of Kenalog-40 0.2 mL were administered. The patient will be seen in the a.m.
[2022-04-28] MEDS: Tropicamide 1 % Ophth Sol 3 ML BTL 1 DROP EYE-LEFT ×3 (07:52→07:59)
[2022-04-28] MEDS: Phenylephrine HCL 2.5% Oph SoL 2 ML BOTTLE 1 DROP EYE-LEFT ×3 (07:54→08:01)
[2022-04-28 08:35] VITALS: BP 140/79; PULSE 56; RESP 18; TEMP 36.4; O2SAT 99
== END 2022-04-28 08:48 | disposition home or self-care (01) ==
PROVIDERS: PCP Internal Medicine; Visit Provider Ophthalmology
PROC: (CPT 66985; principal; 2022-04-28 08:50)
DX: H25.12 Age-related nuclear cataract, left eye (principal); H52.4 Presbyopia; Q14.1 Congenital malformation of retina; I10 Essential (primary) hypertension; I71.4 Abdominal aortic aneurysm, without rupture; E78.00 Pure hypercholesterolemia, unspecified; I25.10 Atherosclerotic heart disease of native coronary artery without angina pectoris; Z95.1 Presence of aortocoronary bypass graft; K21.01 Gastro-esophageal reflux disease with esophagitis, with bleeding; Z79.82 Long term (current) use of aspirin; Z79.899 Other long term (current) drug therapy; Z88.1 Allergy status to other antibiotic agents; Z87.891 Personal history of nicotine dependence
CPT/HCPCS: 66984; J2250; J3300; V2632

== ENCOUNTER 2022-07-16 06:00 | Day surgery (SDC) | payer MEDICARE, SELFPAY ==
[2022-07-09 11:59] VITALS: BMI 23.2
--- NOTE | 2022-07-15 10:45 | HO.ANESPROP2 ---
Documented by User: Anna De Los Santos NP 07/15/22 10:58 HPI - Anesthesia Eval Consult details Narrative: 77yo M for Left Hernia Repair Inguinal with mesh Cardiac cleared at low risk (CAD stable, s/p CABG x 5, 16 years ago), recommend uninterrupted aspirin PMFSH Active Problems Active Problems: All Active Problems (Updated 07/09/22 @ 11:01 by Indu Darnell, RN) Rotator cuff tear arthropathy of right shoulder (Acute) Urinary urgency (Acute) Urinary frequency (Acute) Bladder outlet obstruction (Acute) Bladder diverticulum (Acute) AAA (abdominal aortic aneurysm) without rupture (Acute) Left inguinal hernia (Acute) Personal history of nicotine dependence (Acute) Past Medical History Medical History (Updated 07/09/22 @ 11:01 by Indu Darnell, WILMER) Abdominal aortic aneurysm CAD (coronary artery disease) Depression with anxiety GERD (gastroesophageal reflux disease) History of fracture of left hip Hx of fracture of leg Hypercholesterolemia Hypertension, essential, benign Personal history of nicotine dependence Rotator cuff arthropathy of right shoulder Tubular adenoma of colon Family History Family History Father Lung cancer Family history of problems with anesthesia: No Surgical History Surgical History (Updated 07/09/22 @ 11:01 by Indu Darnell RN) History of appendectomy (~2014) History of colonoscopy History of esophagogastroduodenoscopy (EGD) History of prostate biopsy Hx of bilateral cataract extraction Hx of right inguinal hernia repair S/P CABG x 5 (~2005) History of Problems with Anesthesia: No Social History Social History Are you a primary home health care coordinator to a significant other at home: No Do you presently have visiting nurse or other home services: No Alcohol intake: never Patient Tobacco Use Status: Former Tobacco user Quit Date: 2008 Tobacco use type: Cigarette Years Smoked: (onset 10yo, 1-2.5ppd x54pyh, 100pyh, quit 2008) Current occupational status: retired Current occupation: Left Handed Meds Allergies Allergy/AdvReac Type Severity Reaction Status Date / Time amoxicillin Allergy Intermediate Rash Verified 04/02/22 11:06 levofloxacin [Levaquin] Allergy Intermediate rash, Verified 07/09/22 11:02 weakness, muscle aches sulfamethoxazole Allergy Intermediate Rash Verified 07/09/22 11:02 [From Bactrim] trimethoprim [From Bactrim] Allergy Intermediate Rash Verified 07/09/22 11:02 Home Medications Medication Instructions Recorded Confirmed Last Taken Type amlodipine 5 mg tablet 5 mg PO DAILY 07/03/20 07/09/22 07/16/22 History metoprolol succinate 50 mg 50 mg PO DAILY 07/03/20 07/09/22 07/16/22 History tablet,extended release 24 hr omeprazole 20 mg capsule,delayed 20 mg PO DAILY 07/03/20 07/09/22 07/16/22 History release atorvastatin 80 mg tablet 80 mg PO QAM 01/21/22 07/09/22 07/15/22 History tamsulosin 0.4 mg capsule 0.8 mg PO BEDTIME 01/21/22 07/09/22 07/15/22 History aspirin 81 mg tablet,delayed 81 mg PO DAILY 04/02/22 07/09/22 07/08/22 History release finasteride 5 mg tablet 1 tab PO BEDTIME 04/02/22 07/09/22 07/15/22 History Fish Oil 1 mg PO DAILY 07/09/22 07/16/22 07/08/22 History cholecalciferol (vitamin D3) 25 25 mcg PO DAILY 07/09/22 07/09/22 07/15/22 History mcg (1,000 unit) capsule (Vitamin D3) multivitamin 1 tab PO DAILY 07/09/22 07/09/22 07/15/22 History Exam Exam Date and Time: July 15, 2022 1045 Height,Weight and Vital Signs: Height 5 ft 6 in Weight 65.317 kg Pertinent Lab Results Pertinent Lab Results: Laboratory Tests 02/11/22 02/11/22 10:04 10:04 WBC 7.1 Hgb 13.2 L Hct 39.5 L Plt Count 305 Sodium 136 Potassium 4.5 Chloride 101 Carbon Dioxide 26 BUN 13 Creatinine 0.81 Narrative Narrative: EKG 07/2022 NSR with intermittent premature ectopic/fusion complexes. ECHO 07/2021 Conclusions: - Normal left ventricular size and systolic function.? - Normal right ventricular cavity size and systolic function.? ? - The left atrium is mildly dilated. ? US aorta 07/2021 IMPRESSION: 1.? Calcific atherosclerotic changes are present with mild fusiform dilatation in 2 areas with a maximal diameter of only 3 cm. 2.? Large posterior bladder diverticulum. Assessment and Plan Assessment Anesthesia Assessment: Chart Reviewed Final Anesthetic Review Family History of Problems with Anesthesia: No History of Problems with Anesthesia: No Documented by User: Gordy Morrow MD 07/16/22 18:45 [facility] Past Medical History Medical History (Updated 07/09/22 @ 11:01 by Indu Darnell, RN) Abdominal aortic aneurysm CAD (coronary artery disease) Depression with anxiety GERD (gastroesophageal reflux disease) History of fracture of left hip Hx of fracture of leg Hypercholesterolemia Hypertension, essential, benign Personal history of nicotine dependence Rotator cuff arthropathy of right shoulder Tubular adenoma of colon Family History Family History Father Lung cancer Surgical History Surgical History (Updated 07/09/22 @ 11:01 by Indu Darnell, RN) History of appendectomy (~2014) History of colonoscopy History of esophagogastroduodenoscopy (EGD) History of prostate biopsy Hx of bilateral cataract extraction Hx of right inguinal hernia repair S/P CABG x 5 (~2005) Social History Social History Are you a primary home health care coordinator to a significant other at home: No Do you presently have visiting nurse or other home services: No Alcohol intake: never Patient Tobacco Use Status: Former Tobacco user Quit Date: 2008 Tobacco use type: Cigarette Years Smoked: (onset 10yo, 1-2.5ppd x54pyh, 100pyh, quit 2008) Current occupational status: retired Current occupation: Left Handed Meds Allergies Allergy/AdvReac Type Severity Reaction Status Date / Time amoxicillin Allergy Intermediate Rash Verified 04/02/22 11:06 levofloxacin [Levaquin] Allergy Intermediate rash, Verified 07/09/22 11:02 weakness, muscle aches sulfamethoxazole Allergy Intermediate Rash Verified 07/09/22 11:02 [From Bactrim] trimethoprim [From Bactrim] Allergy Intermediate Rash Verified 07/09/22 11:02 Home Medications Medication Instructions Recorded Confirmed Last Taken Type amlodipine 5 mg tablet 5 mg PO DAILY 07/03/20 07/09/22 07/16/22 History metoprolol succinate 50 mg 50 mg PO DAILY 07/03/20 07/09/22 07/16/22 History tablet,extended release 24 hr omeprazole 20 mg capsule,delayed 20 mg PO DAILY 07/03/20 07/09/22 07/16/22 History release atorvastatin 80 mg tablet 80 mg PO QAM 01/21/22 07/09/22 07/15/22 History tamsulosin 0.4 mg capsule 0.8 mg PO BEDTIME 01/21/22 07/09/22 07/15/22 History aspirin 81 mg tablet,delayed 81 mg PO DAILY 04/02/22 07/09/22 07/08/22 History release finasteride 5 mg tablet 1 tab PO BEDTIME 04/02/22 07/09/22 07/15/22 History Fish Oil 1 mg PO DAILY 07/09/22 07/16/22 07/08/22 History cholecalciferol (vitamin D3) 25 25 mcg PO DAILY 07/09/22 07/09/22 07/15/22 History mcg (1,000 unit) capsule (Vitamin D3) multivitamin 1 tab PO DAILY 07/09/22 07/09/22 07/15/22 History Exam Airway Mallampati Class: IV TM Dist: >3cm Neck ROM: Full Loose/Missing/Broken Teeth: Yes ([place] ) Heart: S1,S2 Lungs: b/l breath sounds Assessment and Plan Assessment Anesthesia Assessment: Anesthesia Plan Discussed Final Anesthetic Review NPO: Yes ASA Class: III Final Preanesthetic Review: Meds/Allgs Chart Reviewed, Consent Obtained/Reviewed and Anes Risks/Benef Reviewed Patient Risk: High Procedure Risk: Intermediate Anesthetic Plan Anesthetic Plan: GA Disposition: Standard PACU
[2022-07-16] VITALS (7 sets, daily range): BP systolic 147–163; BP diastolic 70–103; PULSE 52–63; RESP 16–18; TEMP 36.3–36.6; O2SAT 95–100; BMI 22.6
[2022-07-16 06:44] LABS: COVID-19 Test Negative (Negative); IDNOW Serial# 9DB6401D
[2022-07-16] MEDS: Lactated Ringers 1,000 ML 100 ML IVCONT (07:03)
[2022-07-16] MEDS: vancomycin HCL 1,000 MG in 0.9 % Sodium Chloride 250 ML 270 MG IV (07:03)
--- NOTE | 2022-07-16 07:30 | MHC.SHP ---
Pre-Procedural Eval Section A Date of Service: 07/16/22 The patient is an INPATIENT: No Changes since office visit: Yes Patient answered all questions; No Cold of Flu in the past 2 weeks, No New Medical Problems and No Changes in Medication The History & Physical has been completed within 30 days and I have reviewed it.: No Section B Chief Complaint: Unilateral inguinal hernia Details of Present Illness: Continues to have swelling in the left groin with associated mild discomfort. He denies any new symptoms. Relevant Family History (Specify if Yes): No Relevant Social History: None Present Medications: see Short Stay Collaborative assessment Medical History: Significant History (AAA, BPH) History of Previous Operations: Relevant previous surgery/procedure and date(s) (Left leg fracture) Allergies: Allergies Allergy/AdvReac Type Severity Reaction Status Date / Time amoxicillin Allergy Intermediate Rash Verified 04/02/22 11:06 levofloxacin [Levaquin] Allergy Intermediate rash, Verified 07/09/22 11:02 weakness, muscle aches sulfamethoxazole Allergy Intermediate Rash Verified 07/09/22 11:02 [From Bactrim] trimethoprim [From Bactrim] Allergy Intermediate Rash Verified 07/09/22 11:02 Review of Systems Sugical H&P ROS: Negative: Constitution, Cardiovascular, Respiratory, Neurological, Psychiatric, Hem-Onc, Allergic/Immunologic, Gastrointestinal, Genitourinary, Musculoskeletal, Integumentary, Endocrine and Eyes/Ears/Nose/Throat Exam Surgical H&P Exam: Normal: HEENT, Normal: Heart, Normal: Lungs, Normal: Extremities, Normal: Skin and Normal: Neurological and Significant Findings: Abdomen (large reducible LIH) Plan Diagnosis/Plan: Unchanged I have reviewed the history and physical and performed a pertinent physical examination on my patient. No changes have occurred unless specified.
--- NOTE | 2022-07-16 08:51 | P.OP_ITS ---
Operative Note Operative Note Date of Service: 07/16/22 Narrative: Preoperative diagnosis: Incarcerated left inguinal hernia Postoperative diagnosis: incarcerated left inguinal hernia Procedure: repair of incarcerated left inguinal hernia with mesh Surgeon: Marc Olivia MD Line Service Technician: Coleen Almonte PA-C, DIYA Blankenship Anesthesia: general LMA Indications for procedure: 77-year-old male patient presenting with a large left inguinal hernia which increases in size with standing Valsalva maneuvers Operative findings: Patient was found to have an incarcerated left inguinal hernia containing a large segment of sigmoid colon adherent and into the scrotum. Diverticular changes noted sigmoid colon but no evidence of diverticulitis. Specimen: Hernia sac Estimated blood loss: 15 mL Complications: none Procedure details: patient was brought to the OR placed in a supine position. After administering general anesthesia the patient's abdomen was prepped with ChloraPrep and draped in a sterile fashion. A surgical time-out was called the consent confirmed. Patient received preoperative antibiotics and Venodyne boots were in place. Local anesthesia consisting of 0.5% Sensorcaine with epinephrine was then infiltrated over the left inguinal ligament. Incision was then made with the scalp lung carried out through subcutaneous tissue, past Kenny's fascia and up to the external oblique aponeurosis. This was then anesthetized with local anesthesia. The aponeurosis was then incised with a scalpel and widened with the Metzenbaum scissors. The spermatic cord was identified but found to be very thickened due to the incarcerated bowel. fibers of the cremasteric muscle were then divided and the hernia sac identified. This was divided between clamps and the adherent sigmoid colon identified. This was brought up through the incision and the adhesions divided using electrocautery. The sigmoid colon was then gently returned to the abdominal cavity. The spermatic cord was then dissected from the surrounding inguinal canal and retracted using a [place] drain. The hernia sac was then dissected both distally and proximally. The distal segment was dissected free from the scrotal structures and sent to pathology for further examination. Proximal sac was also dissected up to the internal ring and closed using a pursestring of 0 Polysorb suture. The distal sac was then resected and sent to pathology for further examination. Fibers of the internal oblique and transversalis aponeurosis were then incised between Allis clamps with a electrocautery. The preperitoneal space was entered and widened with a open Ray-Lidia sponge. A large extended PHS mesh was then obtained. The circular underlay was deployed within the preperitoneal space. The overlay was then secured to the pubic tubercle, conjoined tendon, and shelving edge of the inguinal ligament using a 0 Polysorb suture. A slit was made in the mesh and the mesh wrapped around the spermatic cord at the internal ring. This was secured to the inguinal ligament using a 0 Polysorb suture. Wounds were irrigated with saline solution and suctioned dry. Wounds were checked for hemostasis. External oblique aponeurosis was then closed using a running 2 0 Polysorb suture. Zenrelef was then applied over the hernia mesh with approximately 8 mL. Kenny's fascia and dermis were then reapproximated using interrupted 3-0 Polysorb sutures. Skin was closed using a running subcuti cular 4-0 Polysorb suture. Steri-Strips, 4 x 4 gauze and Tegaderm were then applied. Patient tolerated the procedure well. Sponge, instrument, needle counts reported as correct. The patient was transferred to PACU in stable condition.
== END 2022-07-16 10:56 | disposition home or self-care (01) ==
PROVIDERS: Anesthesiology; PCP Internal Medicine; Visit Provider Surgery
PROC: (CPT 49507; principal; 2022-07-16 07:30)
DX: K40.30 Unilateral inguinal hernia, with obstruction, without gangrene, not specified as recurrent (principal); K66.0 Peritoneal adhesions (postprocedural) (postinfection); I10 Essential (primary) hypertension; I25.10 Atherosclerotic heart disease of native coronary artery without angina pectoris; Z95.1 Presence of aortocoronary bypass graft; I71.40 Abdominal aortic aneurysm, without rupture, unspecified; E78.00 Pure hypercholesterolemia, unspecified; F41.8 Other specified anxiety disorders; Z79.899 Other long term (current) drug therapy; Z88.0 Allergy status to penicillin; Z88.1 Allergy status to other antibiotic agents; Z87.891 Personal history of nicotine dependence; Z98.890 Other specified postprocedural states; Z20.822 Contact with and (suspected) exposure to COVID-19
CPT/HCPCS: 49507; 87635; 88302; C1781; C9088; J1100; J2405; J2795; J3010; J3370

== ENCOUNTER → 2022-07-29 13:17 | Outpatient (BNVA) | payer MEDICARE, SELFPAY | PROVIDERS: PCP Internal Medicine; Referring Provider Internal Medicine; Visit Provider Surgery | DX: Z48.815 Encounter for surgical aftercare following surgery on the digestive system (principal); Z87.19 Personal history of other diseases of the digestive system | CPT/HCPCS: 99212 ==

== ENCOUNTER → 2022-08-29 10:57 | Outpatient (BNVA) | payer MEDICARE, SELFPAY | PROVIDERS: PCP Internal Medicine; Visit Provider Surgery | DX: Z13.89 Encounter for screening for other disorder (principal) | CPT/HCPCS: 99212 ==

== ENCOUNTER 2022-09-12 09:50 | Outpatient (REF) | payer MEDICARE, SELFPAY ==
--- NOTE | ~2022-09-12 | US_ITS ---
EXAMINATION: US RETROPERITONEAL LIMITED (AORTA) CLINICAL INFORMATION: Abdominal aortic aneurysm without rupture. COMPARISON: Ultrasound aorta 08/02/2021. TECHNIQUE: Mclaughlin-scale, color Doppler and spectral Doppler evaluation of the abdominal aorta. Technically limited study secondary to bowel gas. FINDINGS: There is atherosclerotic disease. The measurements of the aorta in maximum AP and transverse dimensions respectively are as follows: Proximal: 3.2 x 3.4 cm. Mid: 3.1 x 3.0 cm. Distal: 2.2 x 3.0 cm. PSV: 124 cm/s. The measurements of the common iliac arteries in maximum AP and TRV dimensions are as follows: Right Common Iliac Artery: 1.2 x 1.6 cm. Left Common Iliac Artery: 1.2 x 1.4 cm. US/US abdominal aortic aneurysm IMPRESSION: No abdominal aortic or iliac artery aneurysm.
== END 2022-09-12 09:51 | disposition home or self-care (01) ==
LOC: HO.US 09:50
PROVIDERS: Visit Provider Surgery Vascular Surgery
DX: I71.40 Abdominal aortic aneurysm, without rupture, unspecified (principal); Z87.891 Personal history of nicotine dependence
CPT/HCPCS: 76706

== ENCOUNTER → 2022-10-21 11:08 | Outpatient (BNVA) | payer MEDICARE, SELFPAY | PROVIDERS: PCP Internal Medicine; Visit Provider Surgery Vascular Surgery | DX: I71.40 Abdominal aortic aneurysm, without rupture, unspecified (principal) | CPT/HCPCS: 99212 ==

== ENCOUNTER 2023-02-05 09:24 | Outpatient (REF) | payer MEDICARE, SELFPAY ==
[2023-02-05 11:41] LABS: MANUAL DIFF FLAG NO
[2023-02-05 11:52] LABS: Basophils Absolute Auto 0.1 X10*3/uL (0.0-0.2); Basophils Percent Auto 0.7 % (0-2); Eosinophils Absolute Auto 0.2 X10*3/uL (0.0-0.4); Eosinophils Percent Auto 1.7 % (0-4); Hematocrit 40.1 % (42.0-52.0); Hemoglobin 13.4 g/dl (14.0-18.0); Imm Gran Abs Auto 0.03 X10*3/uL (0.00-0.03); Imm Gran Pct Auto 0.3 % (0.0-0.4); Lymphocytes Absolute Auto 1.1 X10*3/uL (1.2-4.9); Mean Corpuscular HGB Conc 33.4 g/dl (31.0-36.0); Mean Corpuscular Hemoglobin 32.1 pg (27.0-33.0); Mean Corpuscular Volume 95.9 fL (80.0-98.0); Mean Platelet Volume 10.9 fL (9.4-12.4); Monocytes Absolute Auto 1.5 X10*3/uL (0.1-1.2); Monocytes Percent Auto 15.2 % (2-11); Neutrophils Absolute Auto 6.8 x10*3/uL (2.0-8.3); Neutrophils Percent Auto 71.1 % (45-73); Platelet Count 299 X10*3/uL (160-400); Red Blood Count 4.18 X10*6/uL (4.60-5.80); Red Cell Distribution Width 12.8 % (11.0-16.0); White Blood Count 9.6 X10*3/uL (4.8-10.8)
[2023-02-05 12:25] LABS: Alanine Aminotransferase 15 U/L (0-40); Albumin Level 4.1 g/dL (3.5-5.0); Alkaline Phosphatase 80 U/L (39-117); Anion Gap 14 (12-20); Aspartate Amino Transferase 18 U/L (5-37); Bilirubin Total 1.4 mg/dL (0.0-1.0); Blood Urea Nitrogen 11 mg/dL (9-16); Calcium 9.7 mg/dL (8.4-10.2); Carbon Dioxide 27 mmol/L (22-29); Chloride 99 mmol/L (96-108); Cholesterol 131 mg/dL; Estimated Glomerular Filt Rate > 60; Glucose Fasting 102 mg/dL (60-99); HDL Cholesterol 77 mg/dL; LDL Cholesterol Calculated 44 mg/dl; Potassium 4.5 mmol/L (3.3-5.1); Sodium 135 mmol/L (135-145); Total Protein 7.4 g/dL (6.5-8.0); Triglycerides 54 mg/dL
[2023-02-05 12:29] LABS: Thyroid Stimulating Hormone 1.69 uIU/mL (0.32-4.0); Vitamin D 25-OH Total 60.3 ng/mL (>30)
== END 2023-02-05 09:25 | disposition home or self-care (01) ==
LOC: HO.HMGCLDS 09:24
PROVIDERS: PCP Internal Medicine; Visit Provider Internal Medicine
DX: I10 Essential (primary) hypertension (principal); E78.00 Pure hypercholesterolemia, unspecified; I25.10 Atherosclerotic heart disease of native coronary artery without angina pectoris; N40.1 Benign prostatic hyperplasia with lower urinary tract symptoms; K21.01 Gastro-esophageal reflux disease with esophagitis, with bleeding
CPT/HCPCS: 36415; 80053; 80061; 82306; 84443; 85025

== ENCOUNTER 2023-09-15 12:32 | Outpatient (REF) | payer MEDICARE, SELFPAY ==
--- NOTE | ~2023-09-15 | CT_ITS ---
EXAMINATION: CT CHEST SCREENING CLINICAL INFORMATION: Former smoker with 40 pack year history, quit 13 years ago. COMPARISON: Previous CTs, most recent, 07/12/2021 TECHNIQUE: Multidetector volumetric CT imaging of the chest is performed without contrast using low dose technique. Additional 2D coronal and sagittal reformatted images and axial 3D maximum intensity projection (MIP) images are generated on the CT workstation. This CT examination was performed using dose optimization techniques as appropriate, variously including the following: *Automated exposure control *Adjustment of mA and/or kV according to patient size (this includes techniques or standardized protocols for targeted exams where dose is matched to indication/reason for exam; i.e. extremities or head) *Use of iterative reconstruction technique DLP: 46 mGy-cm FINDINGS: BOTTLE CARRIER: Median sternotomy wires and surgical clips. Calcified aorta. Lumbar vertebroplasty. LUNGS: Evaluation of the cervical trachea limited due to respiratory motion. Trachea and bronchi are patent. Paraseptal and mild centrilobular emphysema. Biapical pleural parenchymal scarring. Basilar atelectasis. No change subpleural RUL 3 mm nodule, 5:93. 8 mm LLL groundglass opacity on previous study has resolved. MEDIASTINUM: Unremarkable thyroid. No pathologic adenopathy. Small hiatal hernia with diffuse mild esophageal thickening. Nonenlarged heart with post CABG changes. No pericardial effusion. Nonaneurysmal aorta with atherosclerotic calcifications. Nonenlarged pulmonary arteries. CORONARY ARTERY CALCIFICATION: Severe. PLEURA: There is no pleural effusion. No pleural mass or thickening. AXILLA: No lymphadenopathy. UPPER ABDOMEN: Distended debris-filled stomach. Partial inclusion probable exophytic left renal cyst and potential gallstone. OSSEOUS STRUCTURES: Unchanged moderate L1 compression deformity. Median sternotomy wires. CT/CT lung screening IMPRESSION: No change emphysema and 3 mm RUL pulmonary nodule. ASSESSMENT: Lung-RADS category 2: Benign RECOMMENDATION: Routine annual low-dose CT screening in 12 months.
== END 2023-09-15 12:33 | disposition home or self-care (01) ==
LOC: HO.CT 12:32
PROVIDERS: PCP Internal Medicine; Visit Provider Physician Assistant Medical
DX: Z87.891 Personal history of nicotine dependence (principal)
CPT/HCPCS: 71271

== ENCOUNTER 2023-10-07 10:17 | Outpatient (REF) | payer MEDICARE, SELFPAY ==
--- NOTE | ~2023-10-07 | US_ITS ---
EXAMINATION: US RETROPERITONEAL LIMITED (AORTA) CLINICAL INFORMATION: Abdominal aortic aneurysm without rupture. Surveillance follow up of a 3.2 cm abdominal aortic aneurysm. COMPARISON: Ultrasound aorta 09/12/2022 and 08/02/2021. TECHNIQUE: Mclaughlin-scale, color Doppler and spectral Doppler evaluation of the abdominal aorta. Technically difficult study secondary to bowel gas. FINDINGS: There is atherosclerotic disease. The measurements of the aorta in maximum AP and transverse dimensions respectively are as follows: Proximal: 3.0 x 3.0 cm, previously 3.2 x 3.4 cm Mid: 2.8 x 3.0 cm previously 3.1 x 3.0 cm Distal: 2.5 x 3.0, previously 2.2 x 3.0 cm PSV: 131 cm/s, previously 124 cm/s. The measurements of the common iliac arteries in maximum AP and TRV dimensions are as follows: Right Common Iliac Artery: 1.1 x 1.1 cm. Left Common Iliac Artery: 1.4 x 1.3 cm. US/US abdominal aortic aneurysm IMPRESSION: No abdominal aortic or iliac artery aneurysm.
== END 2023-10-07 10:18 | disposition home or self-care (01) ==
LOC: HO.US 10:17
PROVIDERS: PCP Internal Medicine; Visit Provider Surgery Vascular Surgery
DX: I71.40 Abdominal aortic aneurysm, without rupture, unspecified (principal)
CPT/HCPCS: 76706

== ENCOUNTER 2023-10-29 10:44 | Outpatient (AMB) | payer MEDICARE, SELFPAY ==
--- NOTE | 2023-10-29 10:47 | MHC.OFFVIS ---
Intake Vital Signs 10/29/23 10:48 Height 5 ft 6 in Weight 151 lb BMI 24.4 Intake Visit Reasons: 1 year follow up s/p 10/07 AAA Intake Note: 1 yr follow up AAA s/p Abd Aorta US 10/07/23. Pt states no complaints or issues other than he had a fall during this past year in the night time while on a trip to the rest room. Accompanied by: Self / Same As Patient Allergies amoxicillin Allergy (Intermediate, Verified 10/29/23 10:54) Rash levofloxacin [Levaquin] Allergy (Intermediate, Verified 10/29/23 10:54) rash, weakness, muscle aches sulfamethoxazole [From Bactrim] Allergy (Intermediate, Verified 10/29/23 10:54) Rash trimethoprim [From Bactrim] Allergy (Intermediate, Verified 10/29/23 10:54) Rash HPI 1 year follow up s/p 10/07 AAA HPI Details Very pleasant 78-year-old gentleman presents for annual surveillance follow-up regarding aortic aneurysm. He has no interval issues. Denies any pain or discomfort. Of note he quit smoking 14 years ago and is a nondiabetic. Now presents for surveillance ultrasound follow-up. [facility] Medical History Hx of fracture of leg Tubular adenoma of colon Abdominal aortic aneurysm History of fracture of left hip Depression with anxiety GERD (gastroesophageal reflux disease) Hypercholesterolemia Hypertension, essential, benign CAD (coronary artery disease) Personal history of nicotine dependence Rotator cuff arthropathy of right shoulder Surgical History History of left inguinal hernia repair (07/16/22) Hx of bilateral cataract extraction Hx of right inguinal hernia repair History of prostate biopsy History of esophagogastroduodenoscopy (EGD) History of colonoscopy History of appendectomy (~2014) S/P CABG x 5 (~2005) Family History Father Lung cancer Social History Are you a primary hospice care consultant to a significant other at home: No Do you presently have visiting nurse or other home services: No Alcohol intake: never Comment: gets up frequently at night to void, uses walker Patient Tobacco Use Status: Former Tobacco user Quit Date: 2008 Tobacco use type: Cigarette Years Smoked: (onset 10yo, 1-2.5ppd x54pyh, 100pyh, quit 2008) Current occupational status: retired Current occupation: Left Handed Review of Systems Const All systems reviewed & are unremarkable except as noted in HPI and below Reports no additional complaints ENT Reports Normal hearing present Card Denies chest pain, Denies chest pain at rest, Denies chest pain with activity and Denies pedal edema Resp Denies cough GI Denies abdominal pain Musc Denies abnormal gait, Denies muscle cramps and Denies radiating pain into limb Skin/Breast Denies skin ulcer and Denies wounds Neuro Reports Normal hearing present and Denies abnormal gait Psych Reports no additional complaints Physical Exam Vital Signs: BMI result Body Mass Index 24.4 Const General: cooperative, healthy appearing and comfortable Orientation/consciousness: oriented to person, oriented to place and oriented to time HEENT Head: Yes normal to inspection Neck Neck: Yes normal visual inspection Carotids: no bruits Chest Chest palpation & inspection: normal inspection of the chest Resp Effort & Inspection: normal respiratory effort and able to speak in complete sentences Auscultation: clear to auscultation bilaterally, no crackles, no rales, no rhonchi and no wheezes Cardio Rate: regular rate Rhythm: regular rhythm Heart sounds: S1 normal heart sound present and S2 normal heart sound present Bruits: no carotid bruits Peripheral pulses: Peripheral pulses 2+ throughout GI Inspection: Yes normal to inspection Skin Wounds: no wounds Hair: normal Neuro General: oriented to person, oriented to place and oriented to time Cranial nerves: Yes CN's II-XII intact bilaterally and Yes Normal hearing present Cognition (Neuro): normal cognition Motor exam (neuro): 5/5 motor strength present throughout Extrem Other: venous exam: No significant superficial varicosities or spider telangiectasias, minimal edema General: No clubbing, No cyanosis and No edema Psych Appearance: grossly normal Mental Status: mental status grossly normal Speech and movement: Normal speech and movement present Results Reviewed Results Reviewed: Most recent aortic ultrasound dated 10/07/2023 demonstrates maximal diameter of 3 cm. This was compared to aortic ultrasound from 09/12/2022 and 08/02/2021. Assessment & Plan Assessment & Plan (1) AAA (abdominal aortic aneurysm) without rupture: Code(s): I71.4 - Abdominal aortic aneurysm, without rupture Qualifiers: Abdominal aorta location: infrarenal aorta Qualified Code(s): I71.43 - Infrarenal abdominal aortic aneurysm, without rupture Plan: In short patient has aortic aneurysm measuring 3 cm. It has been stable for nearly 4 years. We did discuss routine risk factor modification. Would recommend surveillance ultrasound follow-up in 3-5 years by primary care team. Should there be interval changes happy to see him back. He will follow up with us on an as-needed basis. Thank you for allowing us to participate in the care of this very kind gentleman. Coding Level of Care Code Est Pt Level 4 (11377) Diagnoses Infrarenal abdominal aortic aneurysm (AAA) without rupture I71.43 Abdominal aorta location: infrarenal aorta
[2023-10-29 10:48] VITALS: BMI 24.4
== END 2023-10-29 11:10 | disposition home or self-care (01) ==
LOC: HO.HVS 10:45
PROVIDERS: PCP Internal Medicine; Visit Provider Surgery Vascular Surgery
DX: I71.43 Infrarenal abdominal aortic aneurysm, without rupture (principal)
CPT/HCPCS: 99213

== ENCOUNTER → 2023-10-29 10:44 | Outpatient (BNVA) | payer MEDICARE, SELFPAY | PROVIDERS: PCP Internal Medicine; Visit Provider Surgery Vascular Surgery | DX: I71.43 Infrarenal abdominal aortic aneurysm, without rupture (principal) | CPT/HCPCS: 99212 ==

== ENCOUNTER 2024-05-04 09:14 | Outpatient (REF) | payer MEDICARE, SELFPAY ==
[2024-05-04 10:01] LABS: MANUAL DIFF FLAG NO
[2024-05-04 10:12] LABS: Basophils Absolute Auto 0.1 X10*3/uL (0.0-0.2); Basophils Percent Auto 1.1 % (0-2); Eosinophils Absolute Auto 0.6 X10*3/uL (0.0-0.4); Eosinophils Percent Auto 8.8 % (0-4); Hematocrit 39.7 % (42.0-52.0); Hemoglobin 13.4 g/dl (14.0-18.0); Imm Gran Abs Auto 0.02 X10*3/uL (0.00-0.03); Imm Gran Pct Auto 0.3 % (0.0-0.4); Lymphocytes Absolute Auto 1.2 X10*3/uL (1.2-4.9); Lymphocytes Percent Auto 17.2 % (20-40); Mean Corpuscular HGB Conc 33.8 g/dl (31.0-36.0); Mean Corpuscular Hemoglobin 32.1 pg (27.0-33.0); Mean Platelet Volume 10.4 fL (9.4-12.4); Monocytes Absolute Auto 0.8 X10*3/uL (0.1-1.2); Monocytes Percent Auto 10.9 % (2-11); Neutrophils Absolute Auto 4.4 x10*3/uL (2.0-8.3); Neutrophils Percent Auto 61.7 % (45-73); Platelet Count 311 X10*3/uL (160-400); Red Blood Count 4.18 X10*6/uL (4.60-5.80); Red Cell Distribution Width 12.8 % (11.0-16.0); White Blood Count 7.2 X10*3/uL (4.8-10.8)
[2024-05-04 10:39] LABS: Alanine Aminotransferase 22 U/L (0-40); Albumin Level 4.3 g/dL (3.5-5.0); Alkaline Phosphatase 73 U/L (39-117); Anion Gap 11 (12-20); Aspartate Amino Transferase 23 U/L (5-37); Bilirubin Total 0.6 mg/dL (0.0-1.0); Blood Urea Nitrogen 9 mg/dL (9-16); Calcium 9.7 mg/dL (8.4-10.2); Carbon Dioxide 29 mmol/L (22-29); Chloride 100 mmol/L (96-108); Cholesterol 140 mg/dL (<200); Estimated Glomerular Filt Rate > 60; Glucose Fasting 96 mg/dL (60-99); HDL Cholesterol 82 mg/dL (>40); LDL Cholesterol Calculated 50 mg/dL (<100); Potassium 4.3 mmol/L (3.3-5.1); Sodium 136 mmol/L (135-145); Total Protein 7.5 g/dL (6.5-8.0); Triglycerides 41 mg/dL (<150)
== END 2024-05-04 09:15 | disposition home or self-care (01) ==
LOC: HO.HMGCLDS 09:14
PROVIDERS: PCP Internal Medicine; Visit Provider Internal Medicine
DX: I10 Essential (primary) hypertension (principal); E78.00 Pure hypercholesterolemia, unspecified; I25.10 Atherosclerotic heart disease of native coronary artery without angina pectoris
CPT/HCPCS: 36415; 80053; 80061; 85025

== ENCOUNTER 2024-07-15 08:40 | Day surgery (SDC) | payer MEDICARE, SELFPAY ==
[2024-07-13 13:40] VITALS: BMI 23.4
--- NOTE | 2024-07-14 08:57 | P.CONAN_ITS ---
Documented by User: Anna De Los Santos NP 07/14/24 08:58 HPI - Anesthesia Eval Consult details Narrative: 79yo M for Colonoscopy CAD s/p CABG 18years ago. Follows Cardiology. Last seen 2021 and stable [facility] Active Problems Active Problems: All Active Problems Left inguinal hernia (Acute) AAA (abdominal aortic aneurysm) without rupture (Acute) Bladder diverticulum (Acute) Bladder outlet obstruction (Acute) Urinary frequency (Acute) Urinary urgency (Acute) Rotator cuff tear arthropathy of right shoulder (Acute) Personal history of nicotine dependence (Acute) Past Medical History Medical History Hx of fracture of leg Tubular adenoma of colon Abdominal aortic aneurysm History of fracture of left hip Depression with anxiety GERD (gastroesophageal reflux disease) Hypercholesterolemia Hypertension, essential, benign CAD (coronary artery disease) Personal history of nicotine dependence Rotator cuff arthropathy of right shoulder Family History Family History Father Lung cancer Family history of problems with anesthesia: No Surgical History Surgical History History of left inguinal hernia repair (07/16/22) Hx of bilateral cataract extraction Hx of right inguinal hernia repair History of prostate biopsy History of esophagogastroduodenoscopy (EGD) History of colonoscopy History of appendectomy (~2014) S/P CABG x 5 (~2005) History of Problems with Anesthesia: No Social History Social History Are you a primary director of career resources to a significant other at home: No Do you presently have visiting nurse or other home services: No Alcohol intake: never Comment: gets up frequently at night to void, uses walker Patient Tobacco Use Status: Former Tobacco user Tobacco use type: Cigarette Years Smoked: (onset 10yo, 1-2.5ppd x54pyh, 100pyh, quit 2008) Have you been hit, kicked, punched, or otherwise hurt by someone within the past year? If so, by whom?: No Are you DNR?: No Advance Directives: No Advance Directives Information Provided: Yes Recently lost weight without trying: No Nutrition Risks: No Nutritional Risk Current occupational status: retired Current occupation: Left Handed Meds Allergies Allergy/AdvReac Type Severity Reaction Status Date / Time amoxicillin Allergy Intermediate Rash Verified 10/29/23 10:54 levofloxacin [Levaquin] Allergy Intermediate rash, Verified 10/29/23 10:54 weakness, muscle aches sulfamethoxazole Allergy Intermediate Rash Verified 10/29/23 10:54 [From Bactrim] trimethoprim [From Bactrim] Allergy Intermediate Rash Verified 10/29/23 10:54 Home Medications ?Medication ?Instructions ?Recorded ?Confirmed ?Last Taken ?Type amlodipine 5 mg tablet 5 mg PO DAILY 07/03/20 07/13/24 07/15/24 History metoprolol succinate 50 mg 50 mg PO DAILY 07/03/20 07/13/24 07/15/24 History tablet,extended release 24 hr omeprazole 20 mg capsule,delayed 20 mg PO DAILY 07/03/20 07/13/24 07/15/24 History release atorvastatin 80 mg tablet 80 mg PO QAM 01/21/22 07/13/24 07/15/22 History tamsulosin 0.4 mg capsule 0.8 mg PO BEDTIME 01/21/22 07/13/24 07/15/22 History aspirin 81 mg tablet,delayed 81 mg PO DAILY 04/02/22 07/15/24 07/08/24 History release finasteride 5 mg tablet 1 tab PO BEDTIME 04/02/22 07/13/24 07/15/22 History cholecalciferol (vitamin D3) 25 25 mcg PO DAILY 07/09/22 07/13/24 07/15/22 History mcg (1,000 unit) capsule (Vitamin D3) multivitamin 1 tab PO DAILY 07/09/22 07/13/24 07/15/22 History omega 8-tvh-naq-fish oil 1,000 mg 1 cap PO DAILY 07/13/24 07/13/24 Unknown History (120 mg-180 mg) capsule (Fish Oil) Exam Height,Weight and Vital Signs: Height 5 ft 6 in Weight 65.771 kg Pertinent Lab Results Pertinent Lab Results: Laboratory Tests 05/04/24 09:22 WBC 7.2 Hgb 13.4 L Hct 39.7 L Plt Count 311 Sodium 136 Potassium 4.3 Chloride 100 Carbon Dioxide 29 BUN 9 Creatinine 0.76 Assessment and Plan Assessment Anesthesia Assessment: Chart Reviewed Final Anesthetic Review Family History of Problems with Anesthesia: No History of Problems with Anesthesia: No Documented by User: Marilyn Ramsey MD 07/15/24 10:38 PMFSH Past Medical History Medical History Hx of fracture of leg Tubular adenoma of colon Abdominal aortic aneurysm History of fracture of left hip Depression with anxiety GERD (gastroesophageal reflux disease) Hypercholesterolemia Hypertension, essential, benign CAD (coronary artery disease) Personal history of nicotine dependence Rotator cuff arthropathy of right shoulder Family History Family History Father Lung cancer Surgical History Surgical History History of left inguinal hernia repair (07/16/22) Hx of bilateral cataract extraction Hx of right inguinal hernia repair History of prostate biopsy History of esophagogastroduodenoscopy (EGD) History of colonoscopy History of appendectomy (~2014) S/P CABG x 5 (~2005) Social History Social History Are you a primary director of career resources to a significant other at home: No Do you presently have visiting nurse or other home services: No Alcohol intake: never Comment: gets up frequently at night to void, uses walker Patient Tobacco Use Status: Former Tobacco user Tobacco use type: Cigarette Years Smoked: (onset 10yo, 1-2.5ppd x54pyh, 100pyh, quit 2008) Have you been hit, kicked, punched, or otherwise hurt by someone within the past year? If so, by whom?: No Are you DNR?: No Advance Directives: No Advance Directives Information Provided: Yes Recently lost weight without trying: No Nutrition Risks: No Nutritional Risk Current occupational status: retired Current occupation: Left Handed Meds Allergies Allergy/AdvReac Type Severity Reaction Status Date / Time amoxicillin Allergy Intermediate Rash Verified 10/29/23 10:54 levofloxacin [Levaquin] Allergy Intermediate rash, Verified 10/29/23 10:54 weakness, muscle aches sulfamethoxazole Allergy Intermediate Rash Verified 10/29/23 10:54 [From Bactrim] trimethoprim [From Bactrim] Allergy Intermediate Rash Verified 10/29/23 10:54 Home Medications ?Medication ?Instructions ?Recorded ?Confirmed ?Last Taken ?Type amlodipine 5 mg tablet 5 mg PO DAILY 07/03/20 07/13/24 07/15/24 History metoprolol succinate 50 mg 50 mg PO DAILY 07/03/20 07/13/24 07/15/24 History tablet,extended release 24 hr omeprazole 20 mg capsule,delayed 20 mg PO DAILY 07/03/20 07/13/24 07/15/24 History release atorvastatin 80 mg tablet 80 mg PO QAM 01/21/22 07/13/24 07/15/22 History tamsulosin 0.4 mg capsule 0.8 mg PO BEDTIME 01/21/22 07/13/24 07/15/22 History aspirin 81 mg tablet,delayed 81 mg PO DAILY 04/02/22 07/15/24 07/08/24 History release finasteride 5 mg tablet 1 tab PO BEDTIME 04/02/22 07/13/24 07/15/22 History cholecalciferol (vitamin D3) 25 25 mcg PO DAILY 07/09/22 07/13/24 07/15/22 History mcg (1,000 unit) capsule (Vitamin D3) multivitamin 1 tab PO DAILY 07/09/22 07/13/24 07/15/22 History omega 5-kcs-uln-fish oil 1,000 mg 1 cap PO DAILY 07/13/24 07/13/24 Unknown History (120 mg-180 mg) capsule (Fish Oil) Exam Airway Mallampati Class: III TM Dist: >3cm Neck ROM: Full Loose/Missing/Broken Teeth: No Heart: RRR Lungs: CTA Assessment and Plan Assessment Anesthesia Assessment: Anesthesia Plan Discussed Final Anesthetic Review NPO: Yes ASA Class: III Final Preanesthetic Review: Meds/Allgs Chart Reviewed, Consent Obtained/Reviewed and Anes Risks/Benef Reviewed Patient Risk: Intermediate Procedure Risk: Low Anesthetic Plan Anesthetic Plan: MAC: Disposition: Standard PACU
[2024-07-15 09:52] VITALS: BP 145/77; PULSE 63; RESP 18; TEMP 37.1; O2SAT 97; BMI 23.5
[2024-07-15 11:07] VITALS: BP 110/49; PULSE 55; RESP 16; TEMP 36.4; O2SAT 96
--- NOTE | 2024-07-15 11:11 | P.BOP_ITS ---
Brief Operative Note Date of Service: 07/15/24 Pre-op diagnosis: Screening Post-op diagnosis: other (Colon polyps) Procedure: Colonoscopy to the cecum with cold snare polypectomy x 2 Surgeon: Jose R Andrade MD Anesthesia: MAC Was an Unarmed Security Officer used for this Procedure?: No Estimated blood loss (mL): 2.0 Pathology: other (A. Polyp at 60cm B. Polyp at 30cm) Condition: stable Disposition: PACU
[2024-07-15 11:22] VITALS: BP 105/54; PULSE 64; RESP 16; TEMP 36.3; O2SAT 96
--- NOTE | 2024-07-15 11:30 | OP_ITS ---
DATE OF SERVICE: 07/15/2024 SURGEON: Jose R Andrade MD INDICATIONS: The patient presents for evaluation of personal history of tubular adenomas of the colon and need for colorectal cancer screening. Full consent was obtained from him for this, including risks of bleeding and perforation. PREOPERATIVE DIAGNOSIS: Colorectal cancer screening and personal history of tubular adenomas of the colon. POSTOPERATIVE DIAGNOSIS: PROCEDURE PERFORMED: Colonoscopy to cecum with cold snare polypectomy x2. ESTIMATED BLOOD LOSS: COMPLICATIONS: ANESTHESIA: Monitored anesthesia care. ASSISTANTS: SPECIMENS: POSTOPERATIVE DIAGNOSES: Colorectal cancer screening and personal history of tubular adenomas of the colon, colon polyps, diverticulosis, and internal hemorrhoids. DESCRIPTION OF PROCEDURE: The patient was placed in the left lateral decubitus position. The digital rectal exam revealed no abnormalities. The Olympus video pediatric colonoscope was entered into the rectum and advanced easily to the cecum. Once in the cecum, I did identify normal-appearing cecal pouch with appendiceal orifice and a normal-appearing ileocecal valve. There was transillumination of light deep in the right lower quadrant. The entire cecum and ileocecal valve appeared normal. The scope was slowly withdrawn assessing all mucosal surfaces carefully. For the most part, preparation was excellent throughout the colon although there was some areas of liquid stool, which were irrigated and suctioned. At 60 cm and at 30 cm were flat, approximately 5 or 6 mm polyps, which were each removed by cold snare polypectomy and recovered by suction. The polypectomy sites appeared clean, without any sign of residual polyp nor significant bleeding. There was a moderate amount of sigmoid diverticulosis. There were also scattered diverticula in the ascending colon. There was no evidence of any colitis nor angiodysplasia. In the rectum, scope was retroflexed visualizing internal hemorrhoids, but no other pathology. The rectal mucosa appeared normal. The scope was straightened and withdrawn from the patient. He tolerated the procedure well and was returned to the recovery area in stable condition. IMPRESSION: 1. Colon polyps. 2. Diverticulosis. 3. Internal hemorrhoids. PLAN: The results of the pathology will be checked. Given his age and these relatively minimal findings, I do not think he will need any further screening colonoscopies. He was advised to resume his aspirin in 48 hours. He will see me on a p.r.n. basis. MD ADDISON Smith/SULY / [phone]
== END 2024-07-15 12:10 | disposition home or self-care (01) ==
PROVIDERS: PCP Internal Medicine; Visit Provider Internal Medicine
PROC: 0DJD8ZZ Inspection of Lower Intestinal Tract, Via Natural or Artificial Opening Endoscopic (ICD-10-PCS; CPT 45378; principal; 2024-07-15 10:00)
DX: Z12.11 Encounter for screening for malignant neoplasm of colon (principal); Z86.0101 Personal history of adenomatous and serrated colon polyps; D12.4 Benign neoplasm of descending colon; K63.5 Polyp of colon; K57.30 Diverticulosis of large intestine without perforation or abscess without bleeding; K64.8 Other hemorrhoids; K21.9 Gastro-esophageal reflux disease without esophagitis; I25.10 Atherosclerotic heart disease of native coronary artery without angina pectoris; Z95.1 Presence of aortocoronary bypass graft; Z95.5 Presence of coronary angioplasty implant and graft; I25.2 Old myocardial infarction; I10 Essential (primary) hypertension; E78.5 Hyperlipidemia, unspecified; Z79.82 Long term (current) use of aspirin; Z79.899 Other long term (current) drug therapy; Z88.1 Allergy status to other antibiotic agents; Z88.2 Allergy status to sulfonamides; Z87.891 Personal history of nicotine dependence
CPT/HCPCS: 45385; 88305; J2003; J2704

== ENCOUNTER 2024-11-01 13:02 | Outpatient (AMB) | payer MEDICARE, SELFPAY ==
--- NOTE | 2024-11-01 13:21 | MHC.PC.OV ---
Vital Signs 11/01/24 13:30 Height 5 ft 2 in Weight 151 lb BMI 27.6 BP 115/54 L Blood Pressure Location Rt brachial Pulse 54 Pulse Source Pulse Oximeter Temp 97.2 F Pulse Oximetry (%) 98 Intake Visit Reasons: 6 month follow up Intake Note: no other issues but looking for lung scan screening has not hear back from anyone Allergies amoxicillin Allergy (Intermediate, Verified 11/01/24 13:23) Rash levofloxacin [Levaquin] Allergy (Intermediate, Verified 11/01/24 13:23) rash, weakness, muscle aches sulfamethoxazole [From Bactrim] Allergy (Intermediate, Verified 11/01/24 13:23) Rash trimethoprim [From Bactrim] Allergy (Intermediate, Verified 11/01/24 13:23) Rash PFSH Medical History (Updated 11/01/24 @ 13:56 by Zachary Livingston MD) Vertebral fracture, osteoporotic Hx of fracture of leg Tubular adenoma of colon Abdominal aortic aneurysm History of fracture of left hip Depression with anxiety GERD (gastroesophageal reflux disease) Hypercholesterolemia Hypertension, essential, benign CAD (coronary artery disease) Personal history of nicotine dependence Rotator cuff arthropathy of right shoulder Surgical History History of left inguinal hernia repair (07/16/22) Hx of bilateral cataract extraction Hx of right inguinal hernia repair History of prostate biopsy History of esophagogastroduodenoscopy (EGD) History of colonoscopy History of appendectomy (~2014) S/P CABG x 5 (~2005) Family History Father Lung cancer Social History Are you a primary respiratory care specialist to a significant other at home: No Do you presently have visiting nurse or other home services: No Alcohol intake: never Comment: gets up frequently at night to void, uses walker Patient Tobacco Use Status: Former Tobacco user Tobacco use type: Cigarette Years Smoked: (onset 10yo, 1-2.5ppd x54pyh, 100pyh, quit 2008) Current occupational status: retired Current occupation: Left Handed Physical exam (Primary Care) Tobacco/Smoking Status: Tobacco use Status Patient Tobacco Use Status Former Tobacco user 11/01/24 13:28 Tobacco use type Cigarette 11/01/24 13:28 Coding Level of Care Code New Pt Level 4 (73241) Complex EM visit Add On G2211 Diagnoses Infrarenal abdominal aortic aneurysm (AAA) without rupture I71.43 Abdominal aorta location: infrarenal aorta Bladder outlet obstruction N32.0 Personal history of nicotine dependence Z87.891 Aortic stenosis I35.0 Vertebral fracture, osteoporotic M80.08XA Assessment & Plan Assessment & Plan (1) AAA (abdominal aortic aneurysm) without rupture: Code(s): I71.4 - Abdominal aortic aneurysm, without rupture Category: Medical Qualifiers: Abdominal aorta location: infrarenal aorta Qualified Code(s): I71.43 - Infrarenal abdominal aortic aneurysm, without rupture Plan: Patient has annual surveillance. (2) Bladder outlet obstruction: Code(s): N32.0 - Bladder-neck obstruction Category: Medical Plan: Sees a urologist. (3) Personal history of nicotine dependence: Comment: (onset 10yo, 1-2.5ppd x54pyh, 100pyh, quit 2006) Code(s): Z87.891 - Personal history of nicotine dependence Category: Medical Plan: Quit smoking. Lung Cancer Surveillance done in Aug 2023. Negative (4) Aortic stenosis: Code(s): I35.0 - Nonrheumatic aortic (valve) stenosis Plan: Echocardiogram ordered. Previous Echo reviewed (5) Vertebral fracture, osteoporotic: Code(s): M80.08XA - Age-related osteoporosis with current pathological fracture, vertebra(e), initial encounter for fracture Category: Medical Plan: No active interventions Plan History of Present Illness The patient is a 79-year-old male presenting for chronic low back pain management. The patient's condition started following a fall four years prior, with subsequent exacerbation from additional falls. The patient received cortisone injections from [facility] without relief and underwent a kyphoplasty that improved his condition by 50%. However, a second procedure was not pursued due to the perception of risk. More recent imaging reported past vertebral compression fractures, with no new fractures identified. Despite suggestions for surgery, the patient opted against it. Previous physical therapy yielded limited benefits, so the patient declined further sessions. Currently, he uses a cane for ambulation and a walker at night, due to frequently needing to urinate, associated with Benign Prostatic Hyperplasia. Social activity limitations have resulted from discomfort, causing the patient to cease prior exercise habits such as biking and gym workouts. Social History - Exercise: Previously walked and biked regularly; now uses a cane and walks approximately five times a week for 40-60 minutes. - Mobility: Utilizes a walker at night due to nocturnal urinary frequency. - Smoking: Previously a heavy smoker, now abstinent for 15 years. Review of Systems - Musculoskeletal: Denies consistent pain, describes discomfort, and difficulty with activities. - Genitourinary: Reports frequent nocturnal urination due to an enlarged prostate. Physical Exam General: Appearance normal, both eyes and all related structures Nutritional Appearance: Well nourished Orientation/consciousness: Patient oriented x3 Limitations: Uses a cane for walking, uses a walker at night due to balance issues and enlarged prostate Head: Normal to inspection Neck: Normal visual inspection Chest: Normal palpation of entire chest wall Respiratory: Normal respiratory effort Neurology: Patient oriented x3 Heart: S1S2. Systolic murmur 3/6 over the aortic area. Results - Imaging: Recent MRI confirmed past vertebral compression fractures, no recent fractures. Plan Given the patient's history of chronic low back pain with prior intervention attempts including cortisone injections and kyphoplasty, I will respect his choice to manage the condition conservatively. Despite previous MRI findings of vertebral fractures, no recent surgical action is warranted without patient consent. I will prescribe a muscle relaxant for acute exacerbations of discomfort. Routine blood tests are indicated, and I will ensure previous lung screening results are reviewed as the patient switched from Dr. Figueroa. Discussed the option of visiting preferred labs at [facility] or [place] for testing convenience. Patient was informed and verbally consented to the use of an ambient scribe for clinic note documentation during this visit. Discussion Notes The patient and I discussed the history and progression of his chronic low back pain, alongside previous explorations of treatment. I acknowledged his experience with cortisone injections and kyphoplasty, and his reluctance towards additional invasive procedures. We reviewed symptomatic management strategies, including muscle relaxants as needed, and I assured him of reviewing lung screening results from this year, following the change in provider. The importance and logistics of routine blood work were conveyed, with flexible testing site options. The patient expressed understanding and agreement with the management plan, emphasizing acceptance of his condition and its current management strategy. Patient Instructions - Use muscle relaxants as needed for discomfort. - Perform regular walking exercises with the use of a cane for balance. - Get routine blood work [facility] or [place]. - Follow up for the results of the lung screening conducted earlier this year. - Monitor symptoms, and any significant changes should be reported for further evaluation. Orders: Orders Complete Blood Count no Diff Today I71.43 - Infrarenal abdominal aortic aneurysm, without rupture, M80.08XA - Age-related osteoporosis with current pathological fracture, vertebra(e), initial encounter for fracture, N32.0 - Bladder-neck obstruction, Z87.891 - Personal history of nicotine dependence Lipid Panel Today I71.43 - Infrarenal abdominal aortic aneurysm, without rupture, M80.08XA - Age-related osteoporosis with current pathological fracture, vertebra(e), initial encounter for fracture, N32.0 - Bladder-neck obstruction, Z87.891 - Personal history of nicotine dependence Thyroid Stimulating Hormone Today I71.43 - Infrarenal abdominal aortic aneurysm, without rupture, M80.08XA - Age-related osteoporosis with current pathological fracture, vertebra(e), initial encounter for fracture, N32.0 - Bladder-neck obstruction, Z87.891 - Personal history of nicotine dependence Basic Metabolic Panel Today I71.43 - Infrarenal abdominal aortic aneurysm, without rupture, M80.08XA - Age-related osteoporosis with current pathological fracture, vertebra(e), initial encounter for fracture, N32.0 - Bladder-neck obstruction, Z87.891 - Personal history of nicotine dependence Liver Panel Today I71.43 - Infrarenal abdominal aortic aneurysm, without rupture, M80.08XA - Age-related osteoporosis with current pathological fracture, vertebra(e), initial encounter for fracture, N32.0 - Bladder-neck obstruction, Z87.891 - Personal history of nicotine dependence UA and rflx microscopic Today I71.43 - Infrarenal abdominal aortic aneurysm, without rupture, M80.08XA - Age-related osteoporosis with current pathological fracture, vertebra(e), initial encounter for fracture, N32.0 - Bladder-neck obstruction, Z87.891 - Personal history of nicotine dependence Erythrocyte Sedimentation Rate Today I71.43 - Infrarenal abdominal aortic aneurysm, without rupture, M80.08XA - Age-related osteoporosis with current pathological fracture, vertebra(e), initial encounter for fracture, N32.0 - Bladder-neck obstruction, Z87.891 - Personal history of nicotine dependence
[2024-11-01 13:30] VITALS: BP 115/54; PULSE 54; TEMP 36.2; O2SAT 98; BMI 27.6
--- OUTSIDE RECORDS SUMMARY | 2024-11-01 16:12 | XMS_ITS ---
Author Organization [facility] Address [address] [place] [address] Care Team Providers Care Territory Sales Representative Name Role Phone Henry (RETIRED) Jose R CAR Primary Care Provid er Unavailable Jose R Andrade Unavailable [phone] REASON FOR VISIT voicemail Encounters Encounter Location Date Provider Diagnosis [facility] [address] [place] [address] 03/24/2024 Jose R Andrade PLAN OF TREATMENT No Information
--- OUTSIDE RECORDS SUMMARY | 2024-11-01 16:13 | XMS_ITS | Patient Health Record ---
Author Organization [facility] Address [address] [place] [address] Care Team Providers Care Screen Making Supervisor Name Role Phone Henry (RETIRED) Jose R CAR Primary Care Provid er Unavailable Jose R Andrade Unavailable [phone] ALLERGIES Allergen (clinical drug ingredient) Drug/Non Drug Allergy documented on EMR Reaction Allergy Type Onset Date Status Levaquin muscle aches Drug Allergy Acti ve Bactrim rash Drug Allergy Active RESULTS Component Value Reference Range Notes Pathology Reviewed date:07/26/2024 11:22:32 PM Interpretation: Performing Lab:[facility], [address] [place] [phone] Notes/Report: REASON FOR REFERRAL No Information MEDICATIONS Medication SIG (Take, Route, Frequency, Duration) Notes Start Date End Date Status Fiber Active Finasteride 5 MG Oral for 90 A ctive Tamsulosin HCl 0.4 MG Oral for 90 Active Omeprazole 20 mg TAKE 1 CAPSULE DAILY Active Metoprolol & Diet Manage Prod 50mg Orally Active amLODIPine Besylate 5mg 1 tablet Orally Once a day Active Atorvastatin Calcium 80 MG 1 tablet Oral ly Once a day Active Fish Oil 1000iu 1 capsule Orally Onc e a day Active Vitamin D 2000iu 1 tablet Orally Once a day Active Aspir-81 81 MG 1 tablet Orally Once a day Active Multivitamin multi 1 tablet Orally once a day Active IMMUNIZATIONS Vaccine Route Administration Date Status Comme nts Flu vaccine no Preserv 3 and > Unknown 05/31/2015 Admin istered Influenza Unknown 05/01/2017 Administered Influenza Unknown 05/01/2018 Administered SOCIAL HISTORY Sex Assigned At : Social History Observation Description Sex Assigned At Unknown PROBLEMS Problem Type ICD Code Onset Dates Problem Status W/U Status Risk SNOMED Code Notes Problem Encounter for screening for malignant neoplasm of colon (Z12.11) Active confirmed Screening for malignant neoplasm of colon (916870041) Problem Diverticulosis of large intestine without perforation or abscess without bleeding (K57.30) Active confirmed Diverticul ar disease of colon (165699136) Problem Gastroesophageal reflux disease with esophagitis (K21.0) Active confirmed 405714125 Problem Abnormal finding on GI tract imaging (R93.3) Active confirmed 506577432 Problem Pharyngoesophageal dysphagia (R13.14) Active confirmed 10466124 Problem Esophagitis, erosive (K22.10) Active confirmed 90765773 Problem Esophageal dysphagia (R13.10) Active confirmed 87482155 Problem Chronic GERD (K21.9) Active confirmed G astroesophageal reflux disease (disorder) (508755587) VITAL SIGNS Blood pressure diastolic 00 mm Hg 03/15/2024 Height 66 in 03/15/2024 Blood pressure systolic 00 mm Hg 03/15/2024 Weight 145 lbs 03/15/2024 BMI 23.40 kg/m2 03/15/2024 Encounters Encounter Location Date Provider Diagnosis [facility] [address] [place] [phone] 07/15/2024 Jose R Andrade Colon cancer screeni Z12.11 ; Colon polyps K63.5 ; Diverticulosis of large intestine without perforation or abscess without bleeding K57.30 and Other hemorrhoids K64.8 [facility] [address] [place] [phone] 03/15/2024 Jose R Andrade Chronic GERD K21.9 a nd Encounter for screening for malignant neoplasm of colon Z12.11 [facility] [address] [place] [phone] 11/06/2023 Jose R Andrade [facility] [address] [place] [address] 03/24/2024 Jose R Andrade [facility] [address] [facility] [address] [place] [phone] 07/26/2024 Jose R Andrade ASSESSMENTS Encounter Date Diagnosis Assessment Notes Treatment Notes Treatment Clinical Notes 07/15/2024 Colon cancer screening (ICD-10 - Z12.11) 07/15/2024 Colon polyps (ICD-10 - K63.5) 03/15/2024 Encounter for screening for malignant neoplasm of colon (ICD-10 - Z12.11) STOP FISH OIL FOR 1 WEEK BEFORE THE COLONOSCOPY DO NOT TAKE ASPIRIN ON THE DAY OF THE COLONOSCOPY 03/15/2024 Chronic GERD (ICD-10 - K21.9) 07/15/2024 Diverticulosis of large intestine without perforation or abscess without bleeding (ICD-10 - K57.30) 07/15/2024 Other hemorrhoids (ICD-10 - K64.8) PLAN OF TREATMENT Future Test Test Name Order Date UPPER GI ENDOSCOPY 10/11/2015 UPPER GI ENDOSCOPY [place] DILATION OF ESOPH 03/04/2018 COLONOSCOPY 03/15/2024 Insurance Providers Payer Name Payer Address Payer Phone Subscriber Number Group Number Insured Name Patient Relationship to Insured Coverage Start Date Coverage End Date MEDICARE OF [place] [address] [place] [id number] HUONG CABELLO Self - patient is the insured [employer] ATTN CLAIMS [address] [place] [address] [phone] [id number] HUONG CABELLO Self - patient is the insured MEDICAL (GENERAL) HISTORY Medical History History ICD Code Hypertension Neg colonoscopy in 1998 and a small tubular adenoma removed in 2007--neg. colonoscopy in 10/2013 Coronary artery disease-[place] in 1999 with stents--5V CABG as below Diverticulosis Broken left femur--no surgery required Denies DM,CVA,Lung disease,renal disease Hyperlipidemia Upper endoscopy in July of 2015 revealed evidence of erosive esophagitis and a distal esophageal ulcer, small hiatal hernia, and a small distal esophageal diverticulum--biopsies were negative for Shelton's esophagus; F/U EGD in 10/2015--healed esophagitis, small HH, esophageal diverticulum, tiny area of Shelton's esophagus--no dysplasia Upper endoscopy with balloon dilation in February of 2018--there was a very mild distal esophageal stricture which was dilated with balloons from 18-19 mm. There was no esophagitis. There was a small hiatal hernia and his known esophageal diverticulum Surgical History Surgery Date(Month/Year) 5 V CABG in 2005--no heart issues since Right leg surgery x5--orthopedic--many y ears ago Left inguinal hernia repair approx 2021 Appy in 05/2015-Dr. Olivia Right inguinal hernia age 6
--- OUTSIDE RECORDS SUMMARY | 2024-11-01 16:13 | XMS_ITS ---
Author Organization [facility] Address [address] [place] [address] Care Team Providers Care [place] Actor Name Role Phone Henry (RETIRED) Jose R CAR Primary Care Provid er Unavailable Jose R Andrade Unavailable [phone] REASON FOR VISIT SCREENING PROBLEMS Problem Type ICD Code Onset Dates Problem Status W/U Status Risk SNOMED Code Notes Problem Diverticulosis of large intestine without perforation or abscess without bleeding (K57.30) Active confirmed Diverticul ar disease of colon (136921864) Encounters Encounter Location Date Provider Diagnosis [facility] [address], [place] [phone] 07/15/2024 Jose R Andrade Colon cancer scree félix Z12.11 ; Colon polyps K63.5 ; Diverticulosis of large intestine without perforation or abscess without bleeding K57.30 and Other hemorrhoids K64.8 ASSESSMENTS Encounter Date Diagnosis Assessment Notes Treatment Notes Treatment Clinical Notes 07/15/2024 Colon cancer screening (ICD-10 - Z12.11) 07/15/2024 Colon polyps (ICD-10 - K63.5) 07/15/2024 Diverticulosis of large intestine without perforation or abscess without bleeding (ICD-10 - K57.30) 07/15/2024 Other hemorrhoids (ICD-10 - K64.8) PLAN OF TREATMENT No Information
--- OUTSIDE RECORDS SUMMARY | 2024-11-01 16:13 | XMS_ITS | Clinical Summary ---
Author Organization [facility] Address [address] [place] [address] Care Team Providers Care Emergency Room Registered Nurse Name Role Phone Jose R Figueroa DO Primary Care Provider [phone] Social History Tobacco Use Types Packs/Day Years Used Date Smoking Tobacco: Never Assessed Sex and Gender Information Value Date Recorded Sex Assigned at Not on file Legal Sex Male 10:15 AM EST Gender Identity Not on file Sexual Orientation Not on file Last Filed Vital Signs Vital Sign Reading Time Taken Comments Blood Pressure 120/68 07/07/2022 1:53 PM EST Sit ting L Arm Pulse 62 07/07/2022 1:53 PM EST Temperature - - Respiratory Rate - - Oxygen Saturation - - Inhaled Oxygen Concentration - - Weight 66.2 kg (146 lb) 07/07/2022 1:53 PM EST Height 165.1 cm (5' 5 ) 07/07/2022 1:53 PM EST Body Mass Index 24.3 07/07/2022 1:53 PM EST Plan of Treatment Health Maintenance Due Date Last Done Comments DTaP,Tdap,and Td Vaccines (1 - Tdap) 1965 Pneumococcal Vaccine: 50+ Ye ars (1 of 1 - PCV) 1996 Zoster Vaccines (1 of 2) 1996 RSV Immunization Patients 60 + Years Old (1 - 1-dose 75+ series) 2021 Cholesterol Screening (Lipid Panel) 08/03/2022 Depression Screening 08/03/2022 Falls Risk Assessment 08/03/2022 Hepatitis C Screening 08/03/2022 Social Influencers of Health Screening 08/03/2022 Hypertension/CHF/CAD Annual BMP Blood Test 08/07/2022 COVID-19 Vaccine ( - 2023-2 5 season) 2024 Influenza Vaccine (#1) 2024 HIB Vaccines Aged Out No longer eligi ble based on patient's age to complete this topic HPV Vaccines Aged Out No longer eligi ble based on patient's age to complete this topic Hepatitis A Vaccines Aged Out No long er eligible based on patient's age to complete this topic Hepatitis B Vaccines Aged Out No long er eligible based on patient's age to complete this topic IPV Vaccines Aged Out No longer eligi ble based on patient's age to complete this topic MMR Vaccines Aged Out No longer eligi ble based on patient's age to complete this topic Meningococcal ACWY Vaccine Aged Out N o longer eligible based on patient's age to complete this topic Meningococcal B Vacine Aged Out No lo nger eligible based on patient's age to complete this topic RSV Immunization Patients Un ashleigh 20 months Aged Out No longer eligible b ased on patient's age to complete this topic Varicella Vaccines Aged Out No longer eligible based on patient's age to complete this topic Care Teams Emergency Room Registered Nurse Relationship Specialty Start Date End Date Jose R Figueroa DO [address] [place] [phone] PCP - General 08/20/12
--- OUTSIDE RECORDS SUMMARY | 2024-11-01 16:13 | XMS_ITS ---
Author Organization [facility] Address [address] [place] [address] Care Team Providers Care Component Assembler Supervisor Name Role Phone Henry (RETIRED) Jose R CAR Primary Care Provid er Unavailable Jose R Andrade Unavailable [phone] REASON FOR VISIT results of recent biopsies of polyp Encounters Encounter Location Date Provider Diagnosis [facility] [address] [place] [phone] 07/26/2024 Jose R Andrade PLAN OF TREATMENT No Information
== END 2024-11-01 13:57 | disposition home or self-care (01) ==
LOC: HO.HMCSH 13:02
PROVIDERS: PCP Internal Medicine; Visit Provider Internal Medicine
DX: I71.43 Infrarenal abdominal aortic aneurysm, without rupture (principal); N32.0 Bladder-neck obstruction; Z87.891 Personal history of nicotine dependence; I35.0 Nonrheumatic aortic (valve) stenosis; M80.08XA Age-related osteoporosis with current pathological fracture, vertebra(e), initial encounter for fracture

== ENCOUNTER → 2024-11-01 13:02 | Outpatient (BNVA) | payer MEDICARE, SELFPAY | PROVIDERS: PCP Internal Medicine; Visit Provider Internal Medicine | DX: I71.43 Infrarenal abdominal aortic aneurysm, without rupture (principal); N32.0 Bladder-neck obstruction; I35.0 Nonrheumatic aortic (valve) stenosis; M80.08XA Age-related osteoporosis with current pathological fracture, vertebra(e), initial encounter for fracture; Z87.891 Personal history of nicotine dependence | CPT/HCPCS: 99202 ==

== ENCOUNTER 2024-11-07 10:37 | Outpatient (REF) | payer MEDICARE, SELFPAY ==
--- OUTSIDE RECORDS SUMMARY | 2024-11-07 11:59 | XMS_ITS | Patient Health Record ---
Author Organization [facility] Address [address] [place] [address] Care Team Providers Care Internet Marketing Consultant Name Role Phone Henry (RETIRED) Jose R CAR Primary Care Provid er Unavailable Jose R Andrade Unavailable [phone] Allergies Allergen (clinical drug ingredient) Drug/Non Drug Allergy documented on EMR Reaction Allergy Type Onset Date Status Levaquin muscle aches Drug Allergy Acti ve Bactrim rash Drug Allergy Active Results Component Value Reference Range Notes Pathology Reviewed date:07/26/2024 11:22:32 PM Interpretation: Performing Lab:[facility], [address] [place] [phone] Notes/Report: Name: Huong Buckner Age/Sex: 79/M : 1945 Unit#: [id number] Attend Dr: Jose R Andrade MD Re07/15/24 Status : [facility] Location: [facility] Disch: SPEC : [id number] RECD : 07/15/24-1233 STATUS: [place] NUM: [id number] MARY: 07/15/24-[address] [facility] [address]: Jose R Andrade MD ENTERED: 07/15/24-12 37 SP TYPE: Surgical OTHR DR: Jose R Figueroa DO ORDERED: HE Stain/6, Gross Micro L4/2 Diagnosis A. Colon, 60 cm, marilynn ypectomy: Fragments of tubular adenoma; negative for high-grade dysplasia or carcinoma. B. Colon, 30 cm, marilynn ypectomy: Hyperplastic mucosal polyp. Clinical History Pre-Op Dx: Screening Post-Op Dx: Colon po lyps, diverticulosis, hemorrhoids Microscopic Description A, B. Microscopic se ctions reviewed. Material Received A. Polyp at 60 cm B. Polyp at 30 cm Gross Description Received in two parts. Part A: Received in formalin labeled ?polyp at 60 cm? are 2 todd irregular tissue fragments with scant debris ea ch measuring 0.2 cm, submitted in toto in a cassette labeled A. The debris is retained in formalin. Part B: Received in formalin labeled ?polyp at 30 cm? is a 0.3 cm todd-pink papular tissue fragment, submitted in toto in a cassette labeled B. CEDS Copies To: Jose R Figueroa DO [facility] [address] [place] [address] CONTINUED ON NEXT PAGE Name: Huong Buckner Age/Sex: 79/M : 1945 Unit#: [id number] Attend Dr: Jose R Andrade MD Re07/15/24 Status : [facility] Location: [facility] Disch: SPEC : [id number] RECD : 07/15/24 STATUS: [place] NUM: [id number] MARY: 07/15/[address] [facility] [address]: Jose R Andrade MD ENTERED: 07/15/24- 37 SP TYPE: Surgical OTHR DR: Jose R Figueroa DO ORDERED: MONIQUE Stain/6, Gross Micro L4/2 Copies To: (Continued) Jose R Andrade MD [address] [place] [address] Signed (si gnature on file) Doug Chirinos MD 07/18/24 1344 END OF REPORT Reason For Referral No Information Medications Medication SIG (Take, Route, Frequency, Duration) Notes [...] 1 tablet Orally once a day Active Immunizations Vaccine Route Administration Date Status Comme nts Flu vaccine no Preserv 3 and > Unknown 05/31/2015 Admin istered Influenza Unknown 05/01/2017 Administered Influenza Unknown 05/01/2018 Administered Problems Problem Type SNOMED Code ICD Code Onset Dates Problem Status W/U Status Risk Notes Problem Screening for malignant neoplasm of colon (537751461) Encounter for screening for malignant neoplasm of colon (Z12.11) Active confirmed Problem Diverticular disease of colon (302429070) Diverticulosis of large intestine without perforation or abscess without bleeding (K57.30) Active confirmed Problem 000808859 Gastroesophageal reflux disease with esophagitis (K21.0) Active confirmed Problem 907185602 Abnormal finding on GI tract imaging (R93.3) Active confirmed Problem 01441376 Pharyngoesophage al dysphagia (R13.14) Active confirmed Problem 28335525 Esophagitis, ero sive (K22.10) Active confirmed Problem 65613011 Esophageal dysph agia (R13.10) Active confirmed Problem Gastroesophageal reflux disease (disorder) (363162645) Chronic GERD (K21.9) Active confirmed Vital Signs Blood pressure diastolic 00 mm Hg 03/15/2024 Height 66 in 03/15/2024 Blood pressure systolic 00 mm Hg 03/15/2024 Weight 145 lbs 03/15/2024 BMI 23.40 kg/m2 03/15/2024 Encounters Encounter Location Date Provider Diagnosis [facility] Outpatient [address] [place] [phone] 07/15/2024 Jose R Andrade Colon cancer screeni ng Z12.11 ; Colon polyps K63.5 ; Diverticulosis of large intestine without perforation or abscess without bleeding K57.30 and Other hemorrhoids K64.8 [facility] [address] [facility] [address] [place] [phone] 03/15/2024 Jose R Andrade Chronic GERD K21.9 a nd Encounter for screening for malignant neoplasm of colon Z12.11 [facility] [address] [facility] [address] [place] [phone] 03/24/[address] [facility] [address] [place] [address] 07/26/2024 Jose R Andrade Assessments Encounter Date Diagnosis (ICD Code) Assessment Notes Treatment Notes Treatment Clinical Notes Section Notes 07/15/2024 Colon cancer screening (ICD-10 - Z12.11) 07/15/2024 Colon polyps (ICD-10 - K63.5) 03/15/2024 Encounter for screening for malignant neoplasm of colon (ICD-10 - Z12.11) STOP FISH OIL FOR 1 WEEK BEFORE THE COLONOSCOPY DO NOT TAKE ASPIRIN ON THE DAY OF THE COLONOSCOPY Overall, Mr. Buckner appears quite well. His reflux remains quite stable on his daily omeprazole. He is not having any new or worrisome upper GI complaints. Given his previous history of erosive esophagitis with an associated esophageal stricture, I did advise him to continue his omeprazole on a long-term basis. I don't think a repeat upper endoscopy is presently required. I did recommend a followup colonoscopy for further screening given his age, his good clinical appearance, and his last colonoscopy being in 2013. We did review the rationale for that in regard to colon cancer prevention. Full consent is obtained for this, including risks of bleeding and perforation. The procedure will be done with monitored anesthesia care. He was given the below instructions regarding adjustment of his medications for the procedure. Thank you again for allowing me to participate in Mr. Buckner's care. I shall continue to keep you advised of his progress. 03/15/2024 Chronic GERD (ICD-10 - K21.9) Overall, Mr. Buckner appears quite well. His reflux remains quite stable on his daily omeprazole. He is not having any new or worrisome upper GI complaints. Given his previous history of erosive esophagitis with an associated esophageal stricture, I did advise him to continue his omeprazole on a long-term basis. I don't think a repeat upper endoscopy is presently required. I did recommend a followup colonoscopy for further screening given his age, his good clinical appearance, and his last colonoscopy being in 2013. We did review the rationale for that in regard to colon cancer prevention. Full consent is obtained for this, including risks of bleeding and perforation. The procedure will be done with monitored anesthesia care. He was given the below instructions regarding adjustment of his medications for the procedure. Thank you again for allowing me to participate in Mr. Buckner's care. I shall continue to keep you advised of his progress. 07/15/2024 Diverticulosis of large intestine without perforation or abscess without bleeding (ICD-10 - K57.30) 07/15/2024 Other hemorrhoids (ICD-10 - K64.8) Plan Of Treatment Future Test Test Name Order Date UPPER GI ENDOSCOPY 10/11/2015 UPPER GI ENDOSCOPY [place]ON DILATION OF ESOPH 03/04/2018 COLONOSCOPY 03/15/2024 Insurance Providers Payer Name Payer Address Payer Phone Subscriber Number Group Number Insured Name Patient Relationship to Insured Coverage Start Date Coverage End Date MEDICARE OF [place] [address] [place] [address] [id number] HUONG BUCKNER Self - patient is the insured MEDEX ATTN CLAIMS [address] [place] [address] [id number] HUONG BUCKNER Self - patient is the insured Medical (General) History Medical History History ICD Code Hypertension Neg colonoscopy in 1998 and a small tubular adenoma removed in 2007--neg. colonoscopy in 10/2013 Coronary artery disease-[place] in 1999 with stents--5V CABG as below [...] History Surgery Date(Month/Year) 5 V CABG in 2006--no heart issues since Right leg surgery x5--orthopedic--many y ears ago Left inguinal hernia repair approx 2021 Appy in 05/2015-Dr. Olivia Right inguinal hernia age 6
--- OUTSIDE RECORDS SUMMARY | 2024-11-07 11:59 | XMS_ITS | Clinical Summary ---
Author Organization [employer] [facility] ity Address [address] [place] [address] Care Team Providers Care Cementer [employer] Well Name Role Phone Jose R Figueroa DO Primary Care Provider [phone] Social History Tobacco Use Types Packs/Day Years [...] age to complete this topic Care Teams [employer] Relationship Specialty Start Date End Date Jose R Figueroa DO [address] [place] [phone] PCP - General 08/20/12
--- OUTSIDE RECORDS SUMMARY | 2024-11-07 11:59 | XMS_ITS ---
Author Organization [facility] Address [address] [place] [address] Care Team Providers Care Memorandum Statement Clerk Name Role Phone Henry (RETIRED) Jose R CAR Primary Care Provid er Unavailable Jose R Andrade Unavailable [phone] REASON FOR VISIT results of recent biopsies of polyp Encounters Encounter Location Date Provider Diagnosis [facility] [address] [facility] [address] [place] [address] 07/26/2024 Jose R Andrade Plan Of Treatment No Information Progress Notes * HUONG CABELLODOB: 6 (79 yo M)Acc No.[id number]:07/26/2024 Patient:?HUONG CABELLO :1945???Age:79 Y???Sex:Male Address:[address] [place], [place] [address] [address] * true * Date:? Generated for Jessica amin/Sujata/eTransmitting on:?11/07/2024 11:59 AM EDT
--- OUTSIDE RECORDS SUMMARY | 2024-11-07 11:59 | XMS_ITS ---
Author Organization [facility] Address [address] [place] [address] Care Team Providers Care Test Designer Name Role Phone Henry (RETIRED) Jose R CAR Primary Care Provid er Unavailable Jose R Andrade Unavailable [phone] REASON FOR VISIT voicemail Encounters Encounter Location Date Provider Diagnosis [facility] [address] [place] [address] 03/24/2024 Jose R Andrade Plan Of Treatment No Information Progress Notes * DESTINEYHUONGDOB: 6 (78 yo M)Acc No.[id number]:03/24/2024 Patient:?HUONG CABELLO :1945???Age:78 Y???Sex:Male Address:[address] [place], [place] [address] [address] * true * Date:? Generated for Jessica amin/Sujata/eTransmitting on:?11/07/2024 11:58 AM EDT
--- OUTSIDE RECORDS SUMMARY | 2024-11-07 11:59 | XMS_ITS ---
Author Organization [facility] Address [address] [place] [address] Care Team Providers Care Dehydrogenation Operator Name Role Phone Henry (RETIRED) Jose R CAR Primary Care Provid er Unavailable Jose R Andrade Unavailable [phone] REASON FOR VISIT SCREENING Problems Problem Type SNOMED Code ICD Code Onset Dates Problem Status W/U Status Risk Notes Problem Diverticular disease of colon (983311555) Diverticulosis of large intestine without perforation or abscess without bleeding (K57.30) Active confirmed Encounters Encounter Location Date Provider Diagnosis [facility] Outpatient [address] [place] [phone] 07/15/2024 Jose R Andrade Colon cancer scree félix Z12.11 ; Colon polyps K63.5 ; Diverticulosis of large intestine without perforation or abscess without bleeding K57.30 and Other hemorrhoids K64.8 Assessments Encounter Date Diagnosis (ICD Code) Assessment Notes Treatment Notes Treatment Clinical Notes Section Notes 07/15/2024 Colon cancer screening (ICD-10 - Z12.11) 07/15/2024 Colon polyps (ICD-10 - K63.5) 07/15/2024 Diverticulosis of large intestine without perforation or abscess without bleeding (ICD-10 - K57.30) 07/15/2024 Other hemorrhoids (ICD-10 - K64.8) Plan Of Treatment No Information Progress Notes * HUONG CABELLODOB: 6 (79 yo M)Acc No.[id number]:07/15/2024 COLON WITH MAC Patient:?HUONG CABELLO Provider:?Jose R Andrade MD :1945???Age:79 Y???Sex:Male Bird e:07/15/2024 Address:[address] [place], [place] [phone] Pcp:Jose R Figueroa (RETIRE D), DO Subjective: * Chief Complaints: * ???1. SCREENING. * Medical History:? Objective: * Vitals:? Assessment: * Assessment: 1.?Colon cancer screening - Z12.11 (Primary)???2.?Colon polyps - K63.5???3.?Diverticulosis of large intestine without perforation or abscess without bleeding - K57.30???4.?Other hemorrhoids - K64.8??? Plan: * Treatment: * Procedure Codes:?70775 LESIO N REMOVAL COLONOSCOPY, Modifiers: PT , 0529F INTRVL 3+YRS PTS CLNSCP DOCD, 0528F RCMND FLW-UP 10 YRS DOCD, Modifiers: 1P * * The named appointment provid er may or may not be the originator of this progress note, and it is not deemed complete until electronically signed by the appointment provider. Sign off status: Pending * Provider:?Jose R Andrade MD Date:? 024 Generated for Jessica amin/Sujata/eTransmitting on:?11/07/2024 11:59 AM EDT
[2024-11-07 13:08] LABS: Appearance Urine Clear; Color Urine Yellow; Glucose Urine UA Negative (Negative); Leukocyte Esterase Urine Trace (Negative); Nitrite Urine Negative (Negative); Specific Gravity - Urine 1.015 (1.005-1.025); UMIC TRIGGER UA YES; Urine Blood Negative (Negative); Urine Ketones Negative (Negative); Urine Protein Negative (Neg-Trace)
[2024-11-07 13:15] LABS: Bacteria Urine None Seen (None Seen); Hyaline Casts Urine 0-2 /LPF (0-2); RBC Urine 0-2 /HPF (0-2); Squamous Epithelial Cell Urine 0-2 /HPF (0-2); WBC Urine 0-5 /HPF (0-5)
[2024-11-07 13:34] LABS: Hematocrit 38.5 % (42.0-52.0); Mean Corpuscular HGB Conc 33.8 g/dl (31.0-36.0); Mean Corpuscular Hemoglobin 32.6 pg (27.0-33.0); Mean Corpuscular Volume 96.5 fL (80.0-98.0); Mean Platelet Volume 10.9 fL (9.4-12.4); Platelet Count 277 X10*3/uL (160-400); Red Blood Count 3.99 X10*6/uL (4.60-5.80); Red Cell Distribution Width 12.3 % (11.0-16.0); White Blood Count 6.2 X10*3/uL (4.8-10.8)
[2024-11-07 13:58] LABS: Alanine Aminotransferase 33 U/L (0-40); Albumin Level 4.1 g/dL (3.5-5.0); Alkaline Phosphatase 77 U/L (39-117); Anion Gap 12 (12-20); Aspartate Amino Transferase 33 U/L (5-37); Bilirubin Direct 0.3 mg/dL (0.0-0.5); Bilirubin Total 0.7 mg/dL (0.0-1.0); Blood Urea Nitrogen 13 mg/dL (9-16); Calcium 8.9 mg/dL (8.4-10.2); Carbon Dioxide 26 mmol/L (22-29); Chloride 103 mmol/L (96-108); Cholesterol 131 mg/dL (<200); Estimated Glomerular Filt Rate > 60; Glucose Random 96 mg/dL (60-115); HDL Cholesterol 69 mg/dL (>40); LDL Cholesterol Calculated 51 mg/dL (<100); Potassium 4.2 mmol/L (3.3-5.1); Sodium 137 mmol/L (135-145); Total Protein 7.6 g/dL (6.5-8.0); Triglycerides 57 mg/dL (<150)
[2024-11-07 14:02] LABS: Thyroid Stimulating Hormone 1.79 uIU/mL (0.32-4.0)
[2024-11-07 14:22] LABS: Erythrocyte Sedimentation Rate 13 MM/HR (0-15)
== END 2024-11-07 10:38 | disposition home or self-care (01) ==
LOC: HO.HMGCLDS 10:37
PROVIDERS: PCP Internal Medicine; Visit Provider Internal Medicine
DX: I71.43 Infrarenal abdominal aortic aneurysm, without rupture (principal); N32.0 Bladder-neck obstruction; Z87.891 Personal history of nicotine dependence; M80.08XA Age-related osteoporosis with current pathological fracture, vertebra(e), initial encounter for fracture
CPT/HCPCS: 36415; 80048; 80061; 80076; 81001; 81003; 84443; 85027; 85652

== ENCOUNTER → 2024-11-16 12:29 | Outpatient (REF) | payer MEDICARE, SELFPAY ==
--- NOTE | 2024-11-16 12:35 | CA_ITS ---
Transthoracic Echocardiogram Patient (Last, First, Middle): Carlos Buckner D Gender: Male Date of : 1945 Age: 79 Procedure Date: 11/16/2024 Procedure Type: Transthoracic Echocardiogram Location: OP Height: 165.1 cm Weight: 65.77 kg BSA: 1.73 m2 Heart Rate: 57 bpm BP: 132 / 76 mmHg Baffle Mounter: SB Referring MD: Zachary Livingston MD Automatic Hemmer: Ishmael Leo MD Symptoms: I35.0 - Nonrheumatic aortic (valve) stenosis Study Quality: Adequate ECG Rhythm: Bradycardia Conclusions: - 1. Hyperdynamic LV ejection fraction of greater than 70% 2. Mild calcific changes noted in the aortic valve with mild aortic stenosis and regurgitation 3. Mildly dilated ascending aorta at 3.7 cm 4. Normal RV systolic pressure 5. No gross pericardial effusion Findings Left Ventricle Normal left ventricular cavity size. There is normal left ventricular wall thickness. The left ventricular systolic function is hyperdynamic. The visually estimated ejection fraction is >70%. Spectral Doppler is indicative of a normal filling pattern. There is mild septal asymmetric hypertrophy. Right Ventricle Normal right ventricular cavity size and systolic function. Atria The left atrium is normal in size. There is a highly mobile atrial septum noted. Interatrial shunt cannot be excluded. The right atrium is normal in size. Aortic Valve The aortic valve was not well visualized. There is mild calcification of the aortic valve. There is mild thickening of the aortic valve. There is mild aortic valve stenosis. There is mild aortic valve regurgitation. Mitral Valve Normal mitral valve structure and function. There is trace mitral valve regurgitation. There is no mitral valve stenosis. Pulmonic Valve The pulmonic valve was not well visualized. Tricuspid Valve Likely normal tricuspid valve structure and function. There is mild tricuspid valve regurgitation. The right ventricular systolic pressure is normal. The right ventricular systolic pressure is 29 mmHg. Normal right atrial pressure. There is no evidence of pulmonary hypertension. Great Vessels The pulmonary artery was not well visualized. There is mild dilatation of the ascending aorta measuring 3.70 cm. Venous The inferior vena cava is normal in size and collapses greater than 50% with inspiration. Pericardium/Pleural There is no evidence of pericardial effusion. Prior Study Comparison Changes noted compared to prior study dated: 08/27/2021. Mild aortic stenosis and regurgitation noted Measurements 2D Linear Measurements IVSd: 1.25 0.6-0.9/0.6-1.0 cm LVIDd: 4.41 3.9-5.3/4.2-5.9 cm LVIDd Index: 2.55 2.4-3.2/2.2-3.1 cm/m2 LVIDs: 2.89 2.0-3.6 cm LVPWd: 0.94 0.7-1.1 cm LA Diam: 4.00 2.7-3.8/3.0-4.0 cm LAIDs Index: 2.31 1.5-2.3 cm/m2 LV Mass: 209.12 67-162/88-224 g LV Mass Index: 120.88 43-95/49-115 g/m2 LVOT Diam: 2.00 3.0+(-)1.3 cm 2D Systolic Function EF 4C: 69.20 >55% EF 2C: 72.70 >55% EF BiP: 70.80 >55% Mitral Valve MV Pk E: 0.81 MV PK A: 0.63 MV Decel Time: 201.00 E/A: 1.30 E'Lateral: 8.27 E'Medial: 7.83 E/E' Med: 10.40 E/E' Lat: 9.80 PHT: 59.00 MVA PHT: 3.73 Decel [place]: 4.04 Aortic Valve AoV Pk Norman: 2.17 AoV Mn Norman: 1.29 AoV VTI: 0.42 AoV Pk Grad: 19.00 Aov Mn Grad: 8.00 EDDA Cont.VTI: 2.10 AI Pk Norman: 4.43 AI [place]: 2.35 LVOT LVOT Pk Norman: 1.19 LVOT Mn Norman: 0.77 LVOT VTI: 0.28 LVOT Pk Grad: 6.00 LVOT Mn Grad: 3.00 LVOT Diam: 2.00 LVOT Area: 3.14 Diastolic Function MV Pk E: 0.81 MV Pk A: 0.63 E/A: 1.30 E'Medial: 7.83 E/E' Med: 10.40 E' Laterial: 8.27 E/E' Lat: 9.80 Right Ventricle TAPSE (mm): 18.40 TVS' Norman: 15.00 Tricuspid Valve TR Pk Norman: 2.57 TR Pk Grad: 26.00 RA Press: 3.00 RVSP: 29.00 Great Vessels Aorta Sinus of Valsalva: 3.10 2.0-3.5 cm Ao Asc: 3.70 2.1-3.4 cm Pulmonary Veins Pulm Vein S/D 1.50 Pulmonary Valve PV Pk Norman: 1.04 Peak PV Grad: 4.00 Updated in Other Vendor System with Status of Final Ishmael Leo MD electronically signed on 11/17/2024 4:05:20 PM with status of Final
--- OUTSIDE RECORDS SUMMARY | 2024-11-16 14:52 | XMS_ITS ---
Author Organization [facility] Address [address] [place] [address] Care Team Providers Care Exhaust Equipment Operator Name Role Phone Henry (RETIRED) Jose R CAR Primary Care Provid er Unavailable Jose R Andrade Unavailable [phone] REASON FOR VISIT voicemail Encounters Encounter Location Date Provider Diagnosis [facility] [address] [place] [address] 03/24/2024 Jose R Andrade Plan Of Treatment No Information Progress Notes * DESTINEYHUONGDOB: 6 (78 yo M)Acc No.[id number]:03/24/2024 Patient:?HUONG CABELLO :1945???Age:78 Y???Sex:Male Address:[address] [place], [place] [address] [address] * true * Date:? Generated for Jessica amin/Sujata/eTransmitting on:?11/16/2024 02:52 PM EDT
--- OUTSIDE RECORDS SUMMARY | 2024-11-16 14:52 | XMS_ITS | Patient Health Record ---
Author Organization [facility] Address [address] [place] [address] Care Team Providers Care Parts Driver Name Role Phone Henry (RETIRED) JoseR CAR Primary Care Provid er Unavailable Jose R Andrade Unavailable [phone] Allergies Allergen (clinical drug ingredient) Drug/Non Drug Allergy documented on EMR Reaction Allergy Type Onset Date Status Levaquin muscle aches Drug Allergy Acti ve sulfamethoxazole / trimethoprim Bactrim rash Drug Allergy Active Results Component Value Reference Range Notes Pathology Reviewed date:07/26/2024 11:22:32 PM Interpretation: Performing Lab:[facility], [address] [place] [phone] Notes/Report: Name: Huong Buckner Age/Sex: 79/M : 1945 Unit#: [id number] Attend Dr: Jose R Andrade MD Re07/15/24 Status : [facility] Location: [facility] Disch: SPEC : [id number] RECD : 07/15/24-1233 STATUS: [place] NUM: [id number] MARY: 07/15/24-10[address] [facility] [address]: Jose R Andrade MD ENTERED: [...] Jose R Figueroa DO [facility] [address] [place] [address] CONTINUED ON NEXT PAGE Name: DudleyHuong Jina Age/Sex: 79/M : 1945 Unit#: [id number] Attend Dr: Jose R Andrade MD Re07/15/24 Status : [facility] Location: [facility] Disch: SPEC : [id number] RECD : 07/15/24-758 STATUS: [place] NUM: [id number] MARY: 07/15/24-6 [facility] DR: Jose R Andrade MD ENTERED: 07/15/24-12 37 SP TYPE: Surgical OTHR DR: Jose R Figueroa DO ORDERED: MONIQUE Stain/6, Gross Micro L4/2 Copies To: (Continued) Jose R Andrade MD [address] [place] [address] Signed (si gnature on file) Doug Chirinos [...] Problem Screening for malignant neoplasm of colon (106008136) Encounter for screening for malignant neoplasm of colon (Z12.11) Active confirmed Problem Diverticular disease of colon (285430051) Diverticulosis of large intestine without perforation or abscess without bleeding (K57.30) Active confirmed Problem 119960923 Gastroesophageal reflux disease with esophagitis (K21.0) Active confirmed Problem 462382422 Abnormal finding on GI tract imaging (R93.3) Active confirmed Problem 11017682 Pharyngoesophage al dysphagia (R13.14) Active confirmed Problem 86791667 Esophagitis, ero sive (K22.10) Active confirmed Problem 56469335 Esophageal dysph agia (R13.10) Active confirmed Problem Gastroesophageal reflux disease (disorder) (938566544) Chronic GERD (K21.9) Active confirmed Vital Signs Blood pressure diastolic 00 mm Hg 03/15/2024 Height 66 in 03/15/2024 Blood pressure systolic 00 mm Hg 03/15/2024 Weight 145 lbs 03/15/2024 BMI 23.40 kg/m2 03/15/2024 Encounters Encounter Location Date Provider Diagnosis [facility] Outpatient [address] [place], [place] [phone] 07/15/2024 Jose R Andrade Colon cancer screeni Z12.11 ; Colon polyps K63.5 ; Diverticulosis of large intestine without perforation or abscess without bleeding K57.30 and Other hemorrhoids K64.8 [facility] [address] [place] [phone] 03/15/2024 Jose R Andrade Chronic GERD K21.9 a nd Encounter for screening for malignant neoplasm of colon Z12.11 [facility] [address] [place] [phone] 03/24/2024 Jose R Andrade [facility] [address] [place] [address] 07/26/2024 Jose R Andrade Assessments Encounter Date [...] [place] [address] [place] [address] [id number] HUONG BUCKNER Self - patient is the insured [employer] ATTN CLAIMS [address] [place] [address] [id number] HUONG BUCKNER Self - patient is the insured Medical (General) History Medical History History ICD Code Hypertension Neg colonoscopy in 1998 and a small tubular adenoma removed in 2007--neg. colonoscopy in 10/2013 Coronary artery disease-[place] in 1999 with stents--5V CABG as below [...] hernia repair approx 2021 Appy in 05/2015-Dr. Olviia Right inguinal hernia age 6
--- OUTSIDE RECORDS SUMMARY | 2024-11-16 14:52 | XMS_ITS ---
Author Organization [facility] Address [address] [place] [address] Care Team Providers Care Paper Carrier Name Role Phone Henry (RETIRED) Jose R CAR Primary Care Provid er Unavailable Jose R Andrade Unavailable [phone] REASON FOR VISIT results of recent biopsies of polyp Encounters Encounter Location Date Provider Diagnosis [facility] [address] [facility] [address] [place] [address] 07/26/2024 Jose R Andrade Plan Of Treatment No Information Progress Notes * HUONG CABELLODOB: 6 (79 yo M)Acc No.[id number]:07/26/2024 Patient:?HUONG CABELLO :1945???Age:79 Y???Sex:Male Address:[address] [place], [place] [address] [address] * true * Date:? Generated for Jessica amin/Sujata/eTransmitting on:?11/16/2024 02:52 PM EDT
--- OUTSIDE RECORDS SUMMARY | 2024-11-16 14:53 | XMS_ITS | Clinical Summary ---
Author Organization [employer] [facility] ity Address [address] [place] [address] Care Team Providers Care County Assessor Name Role Phone Jose R Figueroa DO Primary Care Provider [phone] Social History Tobacco Use Types Packs/Day Years [...] age to complete this topic Care Teams County Assessor Relationship Specialty Start Date End Date Jose R Figueroa DO [address] [place] [phone] PCP - General 08/20/12
--- OUTSIDE RECORDS SUMMARY | 2024-11-16 14:53 | XMS_ITS ---
Author Organization [facility] Address [address] [place] [phone] Care Team Providers Care Commercial Pest Control Technician Name Role Phone Henry (RETIRED) Jose R CAR Primary Care Provid er Unavailable Jose R Andrade Unavailable [phone] REASON FOR VISIT SCREENING Problems Problem Type SNOMED Code ICD Code Onset Dates Problem Status W/U Status Risk Notes Problem Diverticular disease of colon (465332770) Diverticulosis of large intestine without perforation or abscess without bleeding (K57.30) Active confirmed Encounters Encounter Location Date Provider Diagnosis [facility] [place] Outpatient [address] [place] [id number] 07/15/2024 Jose R Andrade Colon cancer scree [...] * HUONG CABELLODOB: [birth year] (79 yo M)Acc No.[id number]:07/15/2024 COLON WITH MAC Patient:?HUONG CABELLO Provider:?Jose R Andrade MD :1945???Age:79 Y???Sex:Male Bird e:07/15/2024 Address:[address] [place], [place] [id number] Pcp:Jose R Figueroa (RETIRE D), DO Subjective: * Chief Complaints: * ???1. SCREENING. * Medical History:? Objective: * Vitals:? Assessment: * Assessment: 1.?Colon cancer screening - Z12.11 (Primary)???2.?Colon polyps - K63.5???3.?Diverticulosis of large intestine without perforation or abscess without bleeding - K57.30???4.?Other hemorrhoids - K64.8??? Plan: * Treatment: * Procedure Codes:?81667 LESIO N REMOVAL COLONOSCOPY, Modifiers: PT , [...] MD Date:? 024 Generated for Jessica amin/Sujata/eTransmitting on:?11/16/2024 02:52 PM EDT
== END ==
LOC: HO.CARD 12:29
PROVIDERS: PCP Internal Medicine; Visit Provider Internal Medicine
DX: I35.0 Nonrheumatic aortic (valve) stenosis (principal)
CPT/HCPCS: 93306

== ENCOUNTER → 2024-11-16 12:35 | Outpatient (BNV) | payer MEDICARE, SELFPAY | PROVIDERS: PCP Internal Medicine; Visit Provider Internal Medicine Cardiovascular Disease | DX: I35.2 Nonrheumatic aortic (valve) stenosis with insufficiency (principal); I35.8 Other nonrheumatic aortic valve disorders; I42.2 Other hypertrophic cardiomyopathy; I36.1 Nonrheumatic tricuspid (valve) insufficiency | CPT/HCPCS: 93306 ==

== ENCOUNTER 2024-12-20 11:04 | Outpatient (AMB) | payer MEDICARE, SELFPAY ==
[2024-12-20 11:09] VITALS: BP 122/80; PULSE 56; TEMP 36.4; O2SAT 96; BMI 27.6
--- NOTE | 2024-12-20 11:09 | A.OFFPC_ITS ---
Vital Signs 12/20/24 11:09 Height 5 ft 2 in Weight 151 lb BMI 27.6 BP 122/80 Pulse 56 Pulse Source Pulse Oximeter Temp 97.5 F Temp Source Temporal Artery Scan Pulse Oximetry (%) 96 Oxygen Delivery Method Room Air Intake Visit Reasons: persistent low back pain Paleology Professor Required: No Accompanied by: Self / Same As Patient Allergies amoxicillin Allergy (Intermediate, Verified 12/20/24 11:14) Rash levofloxacin [Levaquin] Allergy (Intermediate, Verified 12/20/24 11:14) rash, weakness, muscle aches sulfamethoxazole [From Bactrim] Allergy (Intermediate, Verified 12/20/24 11:14) Rash trimethoprim [From Bactrim] Allergy (Intermediate, Verified 12/20/24 11:14) Rash Tobacco use date assessed: 12/20/24 Fall risk assessment: No Falls in past year Last assessed Fall Risk: 12/20/24 Dental Screening Dental Screen Date: 12/20/24 Did you have a dental visit in the last 12 months?: Yes Did you have a dental problem in the last 6 months where you did not have access to dental care?: No Was dental information given to patient?: Patient has dentist [facility] Medical History Vertebral fracture, osteoporotic Hx of fracture of leg Tubular adenoma of colon Abdominal aortic aneurysm History of fracture of left hip Depression with anxiety GERD (gastroesophageal reflux disease) Hypercholesterolemia Hypertension, essential, benign CAD (coronary artery disease) Personal history of nicotine dependence Rotator cuff arthropathy of right shoulder Surgical History History of left inguinal hernia repair (07/16/22) Hx of bilateral cataract extraction Hx of right inguinal hernia repair History of prostate biopsy History of esophagogastroduodenoscopy (EGD) History of colonoscopy (~07/15/24) History of appendectomy (~2014) S/P CABG x 5 (~2005) Family History Father Lung cancer Social History (Updated 12/20/24 @ 11:16 by KARINA Singh) Housing: House Are you a primary care support representative to a significant other at home: No Do you presently have visiting nurse or other home services: No Alcohol intake: current Alcohol intake frequency: 0-2 drinks per day Alcohol type: wine Patient Tobacco Use Status: Former Tobacco user Tobacco use type: Cigarette Years Smoked: (onset 10yo, 1-2.5ppd x54pyh, 100pyh, quit 2008) service: No Current occupational status: retired Cognitive needs: Yes (cane ) Hearing needs: Yes (b/l hearing aids) Vision needs: No Questionnaire PHQ-9 Over the last 2 weeks, how often have you been bothered by any of the following problems? 1. Little interest or pleasure in doing things: not at all 2. Feeling down, depressed, or hopeless: not at all 3. Trouble falling or staying asleep, or sleeping too much: not at all 4. Feeling tired or having little energy: not at all 5. Poor appetite or overeating: not at all 6. Feeling bad about yourself - or that you are a failure or have let yourself or your family down: not at all 7. Trouble concentrating on things, such as reading the newspaper or watching television: not at all 8. Moving or speaking so slowly that other people could have noticed. Or the opposite - being so fidgety or restless that you have been moving around a lot more than usual: not at all 9. Thoughts that you would be better off or of hurting yourself in some way: not at all Total score: 0 Source: Developed by Drs. Jose R Woodall, Stephania Reynaga, Tushar Mckee and colleagues, with an educational abeba from [employer]. Thrive Questionnaire Date Thrive assessed: 12/20/24 I am a: Patient What is your living situation today?: I have a steady place to live Within the past 12 months, did the food you bought not last and you didn't have the money to get more?: Never true Within the past 12 months, did you worry whether your food would run out before you got money to buy more?: Never true Do you have trouble paying for medicines?: No Do you have trouble getting transportation to medical appointments?: No Do you have trouble paying your heating and electricity bill?: No Do you have trouble taking care of your child, family member or friend?: No Do you have trouble with day-to-day activities such as bathing, preparing meals, shopping, managing finances, etc.?: No Are you currently unemployed and looking for a job?: No Are you interested in more education?: No Please select the resources that you would like help with: None THRIVE Score: 0 AUDIT C Alcohol Use Questionnaire (AUDIT-C) 1. How often do you have a drink containing alcohol?: 4 or more times a week 2. How many drinks containing alcohol do you have on a typical day when you are drinking?: 1 or 2 3. How often do you have six or more drinks on one occasion?: Never Total Score: 4 JERZY-7 AMB Questionnaire JERZY-7 Date JERZY - 7 assessed: 12/20/24 Feeling nervous, anxious, or on edge: 0 = Not at all Not being able to stop or control worryin = Not at all Worrying too much about different things: 0 = Not at all Trouble relaxin = Not at all Being so restless that it is hard to sit still: 0 = Not at all Becoming easily annoyed or irritable: 0 = Not at all Feeling afraid as if something awful might happen: 0 = Not at all Total JERZY-7 score (0-4 normal; 5-9 mild; 10-14 moderate; 15-21 severe): 0 Source: Developed by Drs. Jose R Woodall, Stephania Reynaga, Tushar Mckee and colleagues, with an educational abeba from [employer]. Physical exam (Primary Care) Vital Signs: Last Vital Signs Temp 97.5 F 12/20/24 11:09 Pulse 56 12/20/24 11:09 BP 122/80 12/20/24 11:09 Pulse Ox 96 12/20/24 11:09 Oxygen Delivery Method Room Air 12/20/24 11:09 BMI result Body Mass Index 27.6 Tobacco/Smoking Status: Tobacco use Status Tobacco use date assessed 12/20/24 12/20/24 11:17 Patient Tobacco Use Status Former Tobacco user 12/20/24 11:16 Tobacco use type Cigarette 12/20/24 11:16 PHQ-9: PHQ-9 Score PHQ-9: Total score 0 12/20/24 11:17 Thrive Assessment: Date of Thrive Assessment Date Thrive assessed 04/22/25 04/22/25 11:17 Coding Level of Care Code New Pt Level 4 (86917) Complex EM visit Add On G2211 Diagnoses Vertebral fracture, osteoporotic M80.08XA Rash R21 Assessment & Plan Assessment & Plan (1) Vertebral fracture, osteoporotic: Code(s): M80.08XA - Age-related osteoporosis with current pathological fracture, vertebra(e), initial encounter for fracture Category: Medical Plan: A repeat appt for possible kyphoplasty suggested. Physical therapy to improve gait and decide on assist devices. DEXA to check for osteoporosis. Will refer to Endocrinology if medication needed. (2) Rash: Code(s): R21 - Rash and other nonspecific skin eruption Plan: irritant dermatitis. Cortisone cream suggested. Plan History of Present Illness The patient is a 79-year-old male presenting with ongoing issues following a bathroom fall five years ago. Following the incident, he experienced a decline from a highly active lifestyle to significant physical limitations, with current ambulation reliant on a cane during the day and a walker at night. MRI indicated multiple vertebral fractures, and previously administered kyphoplasty provided temporary improvement. Though concerned about frequent falls due to balance issues, the patient is resistant to surgical interventions and prescription medications, citing minimal pain but substantial mobility concerns. He seeks further evaluation for osteoporosis, suspecting it due to multiple fractures. Furthermore, he reports facial lesions that periodically form scabs. The patient maintains communication with a medical professional in his family, who suggests potential osteoporosis treatments to prevent further progression. Social History - Previously maintained an active lifestyle, including biking, walking, gym workouts, Pilates, and yoga. - Currently walks 5 days a week for 30-60 minutes. - Uses a cane during the day and a walker at night for mobility assistance after progressively declining physical activity post-fall. Review of Systems - Skin: Reports periodic facial lesions with scab formation. - Musculoskeletal: Reports mobility issues, frequent near falls, and discomfort post activity, specifically back stiffness. - Genitourinary: Reports nocturia with frequent bathroom trips at night (five times a night). - General: Denies use of pain medication and muscle relaxants. Physical Exam General: Cooperative and healthy appearing Nutritional Appearance: Well nourished Orientation/consciousness: Patient oriented x3 Limitations: No limitations Head: Normal to inspection General: Appearance normal, both eyes and all related structures Neck: Normal visual inspection Chest: Normal palpation of entire chest wall Respiratory: N ormal respiratory effort Neurology: Patient oriented x3, but reports significant balance issues. The patient uses a walker at night and a cane during the day due to concerns about falling. Reports worsening walking ability and has a history of multiple compound fractures. Likely osteoporosis. Skin: erythematous area in the left cheek and nose Results - New MRI: Confirmed multiple vertebral fractures. - Past kyphoplasty: Reported initial 50% improvement in symptoms. Plan The patient will be evaluated by Dr. Nayak to consider a repeat kyphoplasty, given his initial response to the procedure. A DEXA scan will be pursued to determine if osteoporosis treatment should commence. Topical treatment for facial lesions will be provided. The patient will be referred for physical therapy to improve walking stability and prevent falls, and osteoporosis management will be considered contingent on diagnostic imaging findings. Continued use of supportive devices for mobility and safety is advised. Patient was informed and verbally consented to the use of an ambient scribe for clinic note documentation during this visit. Discussion Notes In this visit, I discussed with the patient possible management strategies for osteoporosis, using a DEXA scan to confirm diagnosis and consider medicinal therapy based on results. Kyphoplasty's potential risks and benefits were revisited, with emphasis on initial positive response. I advised consulting with Dr. Nayak for a possible second kyphoplasty after evaluation. Considering the patient's reluctance to surgery and medication, I highlighted physical therapy as a non-surgical option for mobility support. We deliberated on current treatment for facial lesions using a topical cream and the importance of monitoring for progression. I underscored the importance of ongoing follow-up assessments and regular physical engagement within safely manageable limits. Follow-up with pharmacy for prescription of the topical cream was instructed. Patient Instructions - Follow up with Dr. Nayak for kyphoplasty evaluation. - Attend scheduled DEXA scan for bone density assessment. - Apply prescribed cream to facial lesions as directed. - Initiate physical therapy sessions for mobility improvement. - Continue using cane and walker for balance aid. - Contact pharmacy for prescription collection in the next few days. - Monitor any changes or increased frequency of falls and report them. Orders: Orders XR DEXA appendicular skeleton Today M81.0 - Age-related osteoporosis without current pathological fracture PT Evaluation and Treatment Today M80.08XA - Age-related osteoporosis with current pathological fracture, vertebra(e), initial encounter for fracture Referrals Interventional Radiology Referral M80.08XA - Age-related osteoporosis with current pathological fracture, vertebra(e), initial encounter for fracture Medications: New hydrocortisone 2.5% 1 appl topical BID PRN 20 grams 0RF skin irritation
--- OUTSIDE RECORDS SUMMARY | 2024-12-20 13:15 | XMS_ITS | Clinical Summary ---
Author Organization [employer] [facility] ity Address [address] [place] [address] Care Team Providers Care Medicare Contact Specialist Name Role Phone Jose R Figueroa DO Primary Care Provider [phone] Social History Tobacco Use Types Packs/Day Years [...] Vaccines (1 of 2) 1996 RSV Immunization Adult Patie nts (1 - 1-dose 75+ series) 2021 Cholesterol Screening (Lipid Panel) 08/03/2022 Depression Screening 08/03/2022 Falls Risk Assessment 08/03/2022 Hepatitis C Screening 08/03/2022 Social Influencers of Health Screening 08/03/2022 Hypertension/CHF/CAD Annual BMP Blood Test 08/07/2022 COVID-19 Vaccine ( - 2023-2 5 season) 2024 Influenza Vaccine (Season Ended) 2025 HIB Vaccines Aged Out No longer eligi [...] age to complete this topic Meningococcal B Vaccine Aged Out No l onger eligible based on patient's age to complete this topic RSV Immunization Patients Un ashleigh 20 months Aged Out No longer eligible b ased on patient's age to complete this topic Varicella Vaccines Aged Out No longer eligible based on patient's age to complete this topic Care Teams Medicare Contact Specialist Relationship Specialty Start Date End Date Jose R Figureoa DO [address] [place] [phone] PCP - General 08/20/12
== END 2024-12-20 11:45 | disposition home or self-care (01) ==
LOC: HO.HMCSH 11:05
PROVIDERS: PCP Internal Medicine; Visit Provider Internal Medicine
DX: M80.08XA Age-related osteoporosis with current pathological fracture, vertebra(e), initial encounter for fracture (principal); R21 Rash and other nonspecific skin eruption

== ENCOUNTER → 2024-12-20 11:04 | Outpatient (BNVA) | payer MEDICARE, SELFPAY | PROVIDERS: PCP Internal Medicine; Visit Provider Internal Medicine | DX: R21 Rash and other nonspecific skin eruption (principal); M80.08XA Age-related osteoporosis with current pathological fracture, vertebra(e), initial encounter for fracture | CPT/HCPCS: 99212 ==

== ENCOUNTER 2025-03-21 09:06 | Outpatient (AMB) | payer MEDICARE, SELFPAY ==
[2025-03-21 09:10] VITALS: BP 164/71; PULSE 50; RESP 16; TEMP 36.6; O2SAT 98; BMI 27.1
--- NOTE | 2025-03-21 09:10 | A.OFFPC_ITS ---
Vital Signs 03/21/25 09:10 Height 5 ft 2 in Weight 148 lb BMI 27.1 BP 164/71 H Respiration 16 Pulse 50 Pulse Source Pulse Oximeter Temp 97.8 F Temp Source Temporal Artery Scan Pulse Oximetry (%) 98 Oxygen Delivery Method Room Air Intake Visit Reasons: f/u back pain Forcer Maker Required: No Accompanied by: Self / Same As Patient Allergies amoxicillin Allergy (Intermediate, Verified 03/21/25 09:11) Rash levofloxacin (Levaquin) Allergy (Intermediate, Verified 03/21/25 09:11) rash, weakness, muscle aches sulfamethoxazole (From Bactrim) Allergy (Intermediate, Verified 03/21/25 09:11) Rash trimethoprim (From Bactrim) Allergy (Intermediate, Verified 03/21/25 09:11) Rash Tobacco use date assessed: 03/21/25 Dental Screening Dental Screen Date: 12/20/24 [facility] Medical History Vertebral fracture, osteoporotic Hx of fracture of leg Tubular adenoma of colon Abdominal aortic aneurysm History of fracture of left hip Depression with anxiety GERD (gastroesophageal reflux disease) Hypercholesterolemia Hypertension, essential, benign CAD (coronary artery disease) Personal history of nicotine dependence Rotator cuff arthropathy of right shoulder Surgical History History of left inguinal hernia repair (07/16/22) Hx of bilateral cataract extraction Hx of right inguinal hernia repair History of prostate biopsy History of esophagogastroduodenoscopy (EGD) History of colonoscopy (~07/15/24) History of appendectomy (~2014) S/P CABG x 5 (~2005) Family History Father Lung cancer Social History Housing: House Are you a primary daycare director to a significant other at home: No Do you presently have visiting nurse or other home services: No Alcohol intake: current Alcohol intake frequency: 0-2 drinks per day Alcohol type: wine Patient Tobacco Use Status: Former Tobacco user Tobacco use type: Cigarette Years Smoked: (onset 10yo, 1-2.5ppd x54pyh, 100pyh, quit 2008) service: No Current occupational status: retired Cognitive needs: Yes (cane ) Hearing needs: Yes (b/l hearing aids) Vision needs: No Questionnaire PHQ-9 Over the last 2 weeks, how often have you been bothered by any of the following problems? 1. Little interest or pleasure in doing things: not at all 2. Feeling down, depressed, or hopeless: not at all 3. Trouble falling or staying asleep, or sleeping too much: not at all 4. Feeling tired or having little energy: not at all 5. Poor appetite or overeating: not at all 6. Feeling bad about yourself - or that you are a failure or have let yourself or your family down: not at all 7. Trouble concentrating on things, such as reading the newspaper or watching television: not at all 8. Moving or speaking so slowly that other people could have noticed. Or the opposite - being so fidgety or restless that you have been moving around a lot more than usual: not at all 9. Thoughts that you would be better off or of hurting yourself in some way: not at all Total score: 0 Source: Developed by Drs. Jose R Woodall, Stephania Reynaga, Tushar Mckee and colleagues, with an educational abeba from [employer]. Thrive Questionnaire Date Thrive assessed: 12/20/24 I am a: Patient What is your living situation today?: I have a steady place to live Within the past 12 months, did the food you bought not last and you didn't have the money to get more?: Never true Within the past 12 months, did you worry whether your food would run out before you got money to buy more?: Never true Do you have trouble paying for medicines?: No Do you have trouble getting transportation to medical appointments?: No Do you have trouble paying your heating and electricity bill?: No Do you have trouble taking care of your child, family member or friend?: No Do you have trouble with day-to-day activities such as bathing, preparing meals, shopping, managing finances, etc.?: No Are you currently unemployed and looking for a job?: No Are you interested in more education?: No Please select the resources that you would like help with: None THRIVE Score: 0 AUDIT C Alcohol Use Questionnaire (AUDIT-C) 1. How often do you have a drink containing alcohol?: 4 or more times a week 2. How many drinks containing alcohol do you have on a typical day when you are drinking?: 1 or 2 3. How often do you have six or more drinks on one occasion?: Never Total Score: 4 JERZY-7 AMB Questionnaire JERZY-7 Date JERZY - 7 assessed: 12/20/24 Feeling nervous, anxious, or on edge: 0 = Not at all Not being able to stop or control worryin = Not at all Worrying too much about different things: 0 = Not at all Trouble relaxin = Not at all Being so restless that it is hard to sit still: 0 = Not at all Becoming easily annoyed or irritable: 0 = Not at all Feeling afraid as if something awful might happen: 0 = Not at all Total JERZY-7 score (0-4 normal; 5-9 mild; 10-14 moderate; 15-21 severe): 0 Source: Developed by Drs. Jose R Woodall, Stephania Reynaga, Tushar Mckee and colleagues, with an educational abeba from [employer]. Physical exam (Primary Care) Vital Signs: Last Vital Signs Temp 97.8 F 03/21/25 09:10 Pulse 50 03/21/25 09:10 Resp 16 03/21/25 09:10 BP 164/71 H 03/21/25 09:10 Pulse Ox 98 03/21/25 09:10 Oxygen Delivery Method Room Air 03/21/25 09:10 BMI result Body Mass Index 27.1 Tobacco/Smoking Status: Tobacco use Status Tobacco use date assessed 03/21/25 03/21/25 09:18 Patient Tobacco Use Status Former Tobacco user 03/21/25 09:18 Tobacco use type Cigarette 03/21/25 09:18 PHQ-9: PHQ-9 Score PHQ-9: Total score 0 03/21/25 09:18 Thrive Assessment: Date of Thrive Assessment Date Thrive assessed 12/20/24 03/21/25 09:18 Coding Level of Care Code Est Pt Level 3 (78568) Complex EM visit Add On G2211 Diagnoses Rash R21 Assessment & Plan Assessment & Plan (1) Rash: Code(s): R21 - Rash and other nonspecific skin eruption Plan: History of Present Illness - The patient is a 80-year-old female presenting with a rash and medication management issues. - Rash: The patient experienced a rash that lasted about 5-1/2 days, which improved with the use of a prescribed cream and corn starch. - The rash was exacerbated by perspiration and improved with corn starch application. - - Social History Review of Systems - Dermatological: Reports rash that improved with cream and corn starch application. - General: Reports feeling good overall. Physical Exam General: Cooperative and healthy appearing Nutritional Appearance: Well nourished Orientation/consciousness: Patient oriented x3 Limitations: No limitations Head: Normal to inspection General: Appearance normal, both eyes and all related structures Neck: Normal visual inspection Chest: Normal palpation of entire chest wall Respiratory: Normal respiratory effort Neurology: Patient oriented x3 Results Plan 1. Rash - Continue using the prescribed cream until the rash resolves completely. - Keep the affected area dry and use corn starch as needed to prevent exacerbation. Discussion Notes I discussed with the patient the importance of continuing the prescribed cream for the rash until it resolves completely. We also talked about keeping the affected area dry and using corn starch to prevent exacerbation. Additionally, I will take over the prescription of the cardiovascular medication previously managed by the associate professor of geology. For diabetes management, we will update the prescription to accommodate the new test strips and meter as per insurance requirements. Patient Instructions - Continue using the prescribed cream until the rash resolves completely. - Keep the affected area dry and use corn starch as needed. - Follow up with primary care physician for cardiovascular medication management. - Update diabetes supplies as per new insurance requirements.
--- OUTSIDE RECORDS SUMMARY | 2025-03-21 09:36 | XMS_ITS | Clinical Summary ---
Author Organization [employer] [facility] ity Address [address] [place] [address] Care Team Providers Care Nursing Care Attendant Name Role Phone Jose R Figueroa DO Primary Care Provider [phone] Social History Tobacco Use Types Packs/Day Years [...] series) 2021 Cholesterol Screening (Lipid Panel) 08/03/2022 Falls Risk Assessment 08/03/2022 Hepatitis C Screening 08/03/2022 Social Influencers of Health Screening 08/03/2022 Hypertension/CHF/CAD Annual BMP Blood Test 08/07/2022 COVID-19 Vaccine (1 - 2023-2 5 season) 2024 Depression Screening 08/31/2024 Influenza Vaccine (#1) 2025 HIB Vaccines Aged Out No longer [...] age to complete this topic Care Teams Nursing Care Attendant Relationship Specialty Start Date End Date Jose R Figueroa DO [address] [place] [phone] PCP - General 08/20/12
== END 2025-03-21 10:00 | disposition home or self-care (01) ==
LOC: HO.HMCSH 09:06
PROVIDERS: PCP Internal Medicine; Visit Provider Internal Medicine
DX: R21 Rash and other nonspecific skin eruption (principal)

== ENCOUNTER → 2025-03-21 09:06 | Outpatient (BNVA) | payer MEDICARE, SELFPAY | PROVIDERS: PCP Internal Medicine; Visit Provider Internal Medicine | DX: R21 Rash and other nonspecific skin eruption (principal) | CPT/HCPCS: 99212 ==

== ENCOUNTER 2025-05-16 14:16 | Outpatient (AMB) | payer MEDICARE, SELFPAY ==
[2025-05-16 14:20] VITALS: BP 116/55; PULSE 54; RESP 14; TEMP 36.8; O2SAT 96; BMI 27.4
--- NOTE | 2025-05-16 14:20 | MHC.PC.OV ---
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 Accompanied by: Self / Same As Patient Allergies amoxicillin Allergy (Intermediate, Verified 05/16/25 14:48) Rash levofloxacin (Levaquin) Allergy (Intermediate, Verified 05/16/25 14:48) rash, weakness, muscle aches sulfamethoxazole (From Bactrim) Allergy (Intermediate, Verified 05/16/25 14:48) Rash trimethoprim (From Bactrim) Allergy (Intermediate, Verified 05/16/25 14:48) Rash Medication List - Last Reconciled 05/16/25 by Felicia Clark PA-C amlodipine 5 mg PO DAILY aspirin 81 mg PO DAILY atorvastatin 80 mg PO QAM cholecalciferol (vitamin D3) (Vitamin D3) 25 mcg PO DAILY finasteride 5 mg PO DAILY hydrocortisone 2.5% 1 appl topical BID-TID PRN metoprolol succinate ER 50 mg PO DAILY multivitamin 1 tab PO DAILY omega 8-awb-pst-fish oil 1,000 (120-180) mg (Fish Oil) 1 cap PO DAILY omeprazole 20 mg PO DAILY tamsulosin 0.8 mg (2 x 0.4 mg) PO DAILY Tobacco use date assessed: 03/21/25 Dental Screening Dental Screen Date: 12/20/24 HPI physical HPI Details The patient is a 80-year-old male presenting for an annual physical examination. He reports a persistent facial lesion that has not responded to hydrocortisone cream, initially prescribed by a previous physician. The lesion is not itchy, but the patient is dissatisfied with its appearance and is unsure of its cause. The patient has a history of osteoporosis with a vertebral fracture, for which he underwent kyphoplasty. He received one injection that provided partial relief, but a second injection was deemed too risky by the treating physician. The patient continues to experience discomfort, which he describes as not painful but bothersome, affecting his mobility. The patient has chronic anemia, as indicated by recent blood work, though specific symptoms related to anemia were not discussed. His hyperlipidemia is well-controlled with atorvastatin, and his recent cholesterol levels were within the desired range. The patient has a history of hypertension, managed with amlodipine and metoprolol. He also has benign prostatic hyperplasia, which causes nocturia and necessitates the use of a walker at night for safety. The patient has a heart murmur, which is a residual finding from previous bypass surgery. He denies any current leg pain or swelling. Social History - Smoking: Quit 15 years ago - Living situation: Lives alone, manages daily activities independently - Diet: Generally healthy, occasionally indulges in less healthy foods [facility] Medical History (Updated 05/16/25 @ 16:00 by Felicia Clark PA-C) Preventative health care Heart murmur BPH (benign prostatic hyperplasia) Hypertension Hyperlipidemia LDL goal <100 Anemia Osteoporosis with pathological fracture of lumbar vertebra Annual physical exam Eczema Vertebral fracture, osteoporotic Hx of fracture of leg Tubular adenoma of colon Abdominal aortic aneurysm History of fracture of left hip Depression with anxiety GERD (gastroesophageal reflux disease) Hypercholesterolemia Hypertension, essential, benign CAD (coronary artery disease) Personal history of nicotine dependence Rotator cuff arthropathy of right shoulder Surgical History History of left inguinal hernia repair (07/16/22) Hx of bilateral cataract extraction Hx of right inguinal hernia repair History of prostate biopsy History of esophagogastroduodenoscopy (EGD) History of colonoscopy (~07/15/24) History of appendectomy (~2014) S/P CABG x 5 (~2005) Family History Father Lung cancer Social History Housing: House Are you a primary patient care coordinator to a significant other at home: No Do you presently have visiting nurse or other home services: No Alcohol intake: current Alcohol intake frequency: 0-2 drinks per day Alcohol type: wine Patient Tobacco Use Status: Former Tobacco user Tobacco use type: Cigarette Years Smoked: (onset 10yo, 1-2.5ppd x54pyh, 100pyh, quit 2008) service: No Current occupational status: retired Cognitive needs: Yes (cane ) Hearing needs: Yes (b/l hearing aids) Vision needs: No Questionnaire PHQ-9 Over the last 2 weeks, how often have you been bothered by any of the following problems? 1. Little interest or pleasure in doing things: not at all 2. Feeling down, depressed, or hopeless: not at all 3. Trouble falling or staying asleep, or sleeping too much: not at all 4. Feeling tired or having little energy: not at all 5. Poor appetite or overeating: not at all 6. Feeling bad about yourself - or that you are a failure or have let yourself or your family down: not at all 7. Trouble concentrating on things, such as reading the newspaper or watching television: not at all 8. Moving or speaking so slowly that other people could have noticed. Or the opposite - being so fidgety or restless that you have been moving around a lot more than usual: not at all 9. Thoughts that you would be better off or of hurting yourself in some way: not at all Total score: 0 Depression Screening Interpretation: Negative Depression Screening Done: Yes 98001 - PHQ-9 Billing: Yes Source: Developed by Drs. Jose R Woodall, Stephania Reynaga, Tushar Mckee and colleagues, with an educational abeba from [employer]. Thrive Questionnaire Date Thrive assessed: 03/21/25 I am a: Patient What is your living situation today?: I have a steady place to live Within the past 12 months, did the food you bought not last and you didn't have the money to get more?: Never true Within the past 12 months, did you worry whether your food would run out before you got money to buy more?: Never true Do you have trouble paying for medicines?: No Do you have trouble getting transportation to medical appointments?: No Do you have trouble paying your heating and electricity bill?: No Do you have trouble taking care of your child, family member or friend?: No Do you have trouble with day-to-day activities such as bathing, preparing meals, shopping, managing finances, etc.?: No Are you currently unemployed and looking for a job?: No Are you interested in more education?: No Please select the resources that you would like help with: None THRIVE Score: 0 AUDIT C Alcohol Use Questionnaire (AUDIT-C) 1. How often do you have a drink containing alcohol?: 4 or more times a week 2. How many drinks containing alcohol do you have on a typical day when you are drinking?: 1 or 2 3. How often do you have six or more drinks on one occasion?: Never Total Score: 4 Score Reviewed/Action Taken: No JERZY-7 AMB Questionnaire JERZY-7 Date JERZY - 7 assessed: 03/21/25 Feeling nervous, anxious, or on edge: 0 = Not at all Not being able to stop or control worryin = Not at all Worrying too much about different things: 0 = Not at all Trouble relaxin = Not at all Being so restless that it is hard to sit still: 0 = Not at all Becoming easily annoyed or irritable: 0 = Not at all Feeling afraid as if something awful might happen: 0 = Not at all Total JERZY-7 score (0-4 normal; 5-9 mild; 10-14 moderate; 15-21 severe): 0 Source: Developed by Drs. Jose R Woodall, Stephania Reynaga, Tushar Mckee and colleagues, with an educational abeba from [employer]. JERZY-7 Assessment Billing JERZY-7 Assessment Tool: JERZY-7 Assessment 60771 Review of Systems Const Details: - Dermatological: Reports persistent facial lesion, denies pruritus - Musculoskeletal: Reports discomfort in lower back, denies pain - Cardiovascular: Denies chest pain, leg pain, or swelling - Respiratory: Denies dyspnea, cough, or wheezing - Gastrointestinal: Denies changes in bowel habits, black or bloody stools - Genitourinary: Reports nocturia, denies dysuria - Neurological: Denies dizziness or unintentional weight loss All systems reviewed & are unremarkable except as noted in HPI and below Physical exam (Primary Care) Vital Signs: Last Vital Signs Temp 98.2 F 05/16/25 14:20 Pulse 54 05/16/25 14:20 Resp 14 05/16/25 14:20 BP 116/55 L 05/16/25 14:20 Pulse Ox 96 05/16/25 14:20 Oxygen Delivery Method Room Air 05/16/25 14:20 Care Plan Goal for BP management: <140/90 at Goal BMI result Body Mass Index 27.4 BMI Assessment/Plan discussion: High BMI High, discussed plan: lifestyle, weight reduction, dietary, physical activity, alcohol moderation and other Tobacco/Smoking Status: Tobacco use Status Tobacco use date assessed 03/21/25 05/16/25 14:25 Patient Tobacco Use Status Former Tobacco user 05/16/25 14:25 Tobacco use type Cigarette 05/16/25 14:25 PHQ-9: PHQ-9 Score PHQ-9: Total score 0 05/16/25 14:34 Depression Screening Interpretation: Negative Thrive Assessment: Date of Thrive Assessment Date Thrive assessed 03/21/25 05/16/25 14:25 Const Other: Appearance: Alert. Oriented X3. No acute distress. Head: Normal external exam. Normocephalic. Atraumatic. Eyes: Pupils are equal, round, and reactive to light. Extraocular movements intact. Conjunctiva and sclera normal. Eyelids normal. Ears: External auditory canal normal. Tympanic membranes normal. Throat: Pharynx normal. Uvula midline. Moist mucous membranes. Neck: Normal inspection. Neck supple. Full range of motion. No adenopathy. Thyroid Normal. No meningeal signs. No neck mass noted. Cardiovascular: Normal heart rate and rhythm. Heart sound normal. Heart murmur noted. Pulses normal throughout. Respiratory: No respiratory distress. Painless inspiration. Breath sounds normal. No wheezes/rales/rhonchi noted. No accessory muscle usage noted or decreased air movement noted. Abdomen: Soft and nontender. No distention noted. No organomegaly noted. No visible injury noted. Back: No costovertebral angle tenderness. Full range of motion noted. Discomfort noted above the sacral area. No mid thoracic or lumbar tenderness step-offs or deformities noted. Patient has good range of motion for his age. Walking with a walker no focal deficits noted. Skin: Skin warm and dry. Normal skin color. Normal skin turgor. Hydrocortisone ointment prescribed for facial spots. No additional rashes/lesions/lacerations noted. Extremities: No lower extremity edema. Extremities exhibit normal range of motion. Extremities nontender. Neuro: Oriented X 3. No motor deficit. No sensory deficit. Reflexes normal. Results Reviewed Results Reviewed: - Labs: Chronic anemia noted, cholesterol levels within desired range Coding Level of Care Code Est Pt Level 4 (09605) Est Pt Prev Care >65y(53129) Diagnoses Annual physical exam Z00.00 Eczema L30.9 Osteoporosis with pathological fracture of lumbar vertebra M80.08XA Anemia D64.9 Hyperlipidemia LDL goal <100 E78.5 Hypertension I10 BPH (benign prostatic hyperplasia) N40.0 Heart murmur R01.1 [facility] Z00.00 Additional Codes PHQ-9 - 36482 - PHQ-9 Billing: Yes ([id number]) JERZY-7 Assessment Billing - JERZY-7 Assessment Tool: JERZY-7 Assessment 90158 ([id number]) Time Spent (min) 55 Assessment & Plan Assessment & Plan (1) Annual physical exam: Code(s): Z00.00 - Encounter for general adult medical examination without abnormal findings Category: Medical (2) Eczema: Code(s): L30.9 - Dermatitis, unspecified Category: Medical Plan: The patient will be prescribed a stronger hydrocortisone ointment to address the persistent facial lesion, as the cream was ineffective. He is advised to apply the ointment three to four times daily and monitor for improvement. (3) Osteoporosis with pathological fracture of lumbar vertebra: Code(s): M80.08XA - Age-related osteoporosis with current pathological fracture, vertebra(e), initial encounter for fracture Category: Medical Plan: The patient will be referred to pain management for further evaluation and potential treatment options, as previous injections provided partial relief but were discontinued due to risk concerns. (4) Anemia: Code(s): D64.9 - Anemia, unspecified Category: Medical Plan: The patient's chronic anemia will be monitored with regular blood work to assess any changes or need for intervention. (5) Hyperlipidemia LDL goal <100: Code(s): E78.5 - Hyperlipidemia, unspecified Category: Medical Plan: The patient's hyperlipidemia is well-controlled with atorvastatin, and no changes to the current regimen are necessary. (6) Hypertension: Code(s): I10 - Essential (primary) hypertension Category: Medical Plan: The patient's hypertension is managed with amlodipine and metoprolol, and no changes to the current treatment plan are required. (7) BPH (benign prostatic hyperplasia): Code(s): N40.0 - Benign prostatic hyperplasia without lower urinary tract symptoms Category: Medical Plan: The patient is advised to continue using a walker at night to prevent falls due to nocturia associated with benign prostatic hyperplasia. (8) Heart murmur: Code(s): R01.1 - Cardiac murmur, unspecified Category: Medical Plan: The heart murmur, a residual finding from previous bypass surgery, will be monitored during routine check-ups. (9) Preventative health care: Code(s): Z00.00 - Encounter for general adult medical examination without abnormal findings Category: Medical Plan: A PSA screening will be ordered as part of the patient's preventative care, as it has not been conducted since 2019. Plan Plan Patient was informed and verbally consented to the use of an ambient scribe for clinic note documentation during this visit. 1. Dermatological Condition The patient will be prescribed a stronger hydrocortisone ointment to address the persistent facial lesion, as the cream was ineffective. He is advised to apply the ointment three to four times daily and monitor for improvement. 2. Osteoporosis With Vertebral Fracture The patient will be referred to pain management for further evaluation and potential treatment options, as previous injections provided partial relief but were discontinued due to risk concerns. 3. Anemia The patient's chronic anemia will be monitored with regular blood work to assess any changes or need for intervention. 4. Hyperlipidemia The patient's hyperlipidemia is well-controlled with atorvastatin, and no changes to the current regimen are necessary. 5. Hypertension The patient's hypertension is managed with amlodipine and metoprolol, and no changes to the current treatment plan are required. 6. Benign Prostatic Hyperplasia The patient is advised to continue using a walker at night to prevent falls due to nocturia associated with benign prostatic hyperplasia. 7. Heart Murmur The heart murmur, a residual finding from previous bypass surgery, will be monitored during routine check-ups. 8. Preventative Care: Psa Screening A PSA screening will be ordered as part of the patient's preventative care, as it has not been conducted since 2020. During the visit, I discussed with the patient the need for a stronger hydrocortisone ointment for his facial lesion, explaining that it should be applied multiple times daily for better efficacy. We also reviewed his osteoporosis management, and I suggested a referral to pain management for further evaluation, given the limited relief from previous treatments. I emphasized the importance of regular monitoring of his anemia and hyperlipidemia, both of which are currently stable. Additionally, I recommended a PSA screening as part of his preventative care, noting that it had not been performed since 2019. Orders: Orders Vitamin B12 and Folate Today Z00.00 - Encounter for general adult medical examination without abnormal findings PSA,Total (Free>4and<10) Today Z00.00 - Encounter for general adult medical examination without abnormal findings Magnesium Today Z00.00 - Encounter for general adult medical examination without abnormal findings Vitamin D 25-OH Total Today Z00.00 - Encounter for general adult medical examination without abnormal findings Hemoglobin A1c Today Z00.00 - Encounter for general adult medical examination without abnormal findings Referrals Interventional Radiology Referral M80.08XA - Age-related osteoporosis with current pathological fracture, vertebra(e), initial encounter for fracture Pain Management Referral M80.08XA - Age-related osteoporosis with current pathological fracture, vertebra(e), initial encounter for fracture Medications: New hydrocortisone 2.5% 1 appl topical BID-TID PRN 454 grams 1RF itching Patient Instructions: - Apply the prescribed hydrocortisone ointment to the facial lesion three to four times daily. - Attend the scheduled pain management appointment for further evaluation of back discomfort. - Complete the ordered blood work, including PSA screening, at your convenience. - Continue current medications for hypertension and hyperlipidemia as prescribed. - Use a walker at night to prevent falls due to nocturia.
--- OUTSIDE RECORDS SUMMARY | 2025-05-16 18:05 | XMS_ITS | Clinical Summary ---
Author Organization [employer] [facility] ity Address [address] [place] [address] Care Team Providers Care Clipman Name Role Phone Jose R Figueroa DO Primary Care Provider [phone] Social History Tobacco Use Types Packs/Day Years [...] 08/03/2022 Hypertension/CHF/CAD Annual BMP Blood Test 08/07/2022 Depression Screening 08/31/2024 COVID-19 Vaccine ( - 2023-2 5 season) 2025 Influenza Vaccine (#1) 2025 HIB Vaccines Aged [...] age to complete this topic Care Teams Clipman Relationship Specialty Start Date End Date Jose R Figueroa DO [address] [place] [id number] PCP - General 08/20/12
== END 2025-05-16 15:29 | disposition home or self-care (01) ==
LOC: HO.HMCSH 14:17
PROVIDERS: PCP Internal Medicine; Visit Provider Physician Assistant Medical
DX: D64.9 Anemia, unspecified (principal); L30.9 Dermatitis, unspecified; M80.08XA Age-related osteoporosis with current pathological fracture, vertebra(e), initial encounter for fracture; E78.5 Hyperlipidemia, unspecified; I10 Essential (primary) hypertension; N40.0 Benign prostatic hyperplasia without lower urinary tract symptoms; R01.1 Cardiac murmur, unspecified

== ENCOUNTER → 2025-05-16 14:16 | Outpatient (BNVA) | payer MEDICARE, SELFPAY | PROVIDERS: PCP Internal Medicine; Visit Provider Physician Assistant Medical | DX: Z00.00 Encounter for general adult medical examination without abnormal findings (principal); D64.9 Anemia, unspecified; I10 Essential (primary) hypertension; R01.1 Cardiac murmur, unspecified; L30.9 Dermatitis, unspecified; E78.5 Hyperlipidemia, unspecified; N40.0 Benign prostatic hyperplasia without lower urinary tract symptoms; M80.08XA Age-related osteoporosis with current pathological fracture, vertebra(e), initial encounter for fracture; X58.XXXA Exposure to other specified factors, initial encounter; Y93.9 Activity, unspecified; Y92.9 Unspecified place or not applicable; Y99.9 Unspecified external cause status | CPT/HCPCS: 96127; 99212 ==

== ENCOUNTER 2025-05-17 14:23 | Outpatient (REF) | payer MEDICARE, SELFPAY ==
[2025-05-17 15:28] LABS: Hemoglobin A1C 138.1174 umol/L; Total Hemoglobin (HGBA1C) 3433.5396 umol/L
[2025-05-17 15:50] LABS: Magnesium 1.7 mg/dL (1.6-2.6)
[2025-05-17 15:57] LABS: PSA,Total (Free>4and<10) 0.73 ng/mL (0.00-4.00)
[2025-05-17 16:07] LABS: Folate 15.6 ng/mL (> or = 4.0); Vitamin B12 545 pg/mL (200-900)
== END 2025-05-17 14:24 | disposition home or self-care (01) ==
LOC: HO.LAB 14:23
PROVIDERS: PCP Internal Medicine; Visit Provider Physician Assistant Medical
DX: Z00.00 Encounter for general adult medical examination without abnormal findings (principal); Z12.5 Encounter for screening for malignant neoplasm of prostate; Z13.1 Encounter for screening for diabetes mellitus; Z13.21 Encounter for screening for nutritional disorder
CPT/HCPCS: 36415; 82306; 82607; 82746; 83036; 83735; 84153

== ENCOUNTER 2025-06-07 10:52 | Outpatient (AMB) | payer MEDICARE, SELFPAY ==
--- NOTE | 2025-06-07 10:55 | MHC.OFFVIS ---
Vital Signs 06/07/25 10:57 Height 5 ft 2 in Weight 147 lb BMI 26.9 BP 147/69 H Blood Pressure Location Lt brachial Position Sitting Respiration 16 Pulse 57 Pulse Source Pulse Oximeter Pulse Oximetry (%) 96 Oxygen Delivery Method Room Air Intake Visit Reasons: chronic back pain Collet Maker Required: No Accompanied by: Self / Same As Patient Allergies amoxicillin Allergy (Intermediate, Verified 06/07/25 11:00) Rash levofloxacin (Levaquin) Allergy (Intermediate, Verified 06/07/25 11:00) rash, weakness, muscle aches sulfamethoxazole (From Bactrim) Allergy (Intermediate, Verified 06/07/25 11:00) Rash trimethoprim (From Bactrim) Allergy (Intermediate, Verified 06/07/25 11:00) Rash HPI Comments Details: Carlos is very pleasant 80 years old gentleman who presents in my office with complains on severe pain in the projection of the right upper buttock. He reports this pain started 5 years ago he states that his pain is secondary to fall. He stated he fell down in the bathroom. He reports that walking aggravates the pain the most. He reports that his pain is not very severe, he rather insists that this pain is more like a nuisace, he reports his pain no more than 5/10. He reports that while sitting and resting as well as laying down he does not feel any pain. He is able to sleep normally, he can do activities of daily living, he is able to care of himself, he can function normally. In terms of tissue damage he describes his pain as dull and source sensation. He is currently in physical therapy, continues home exercise program, he had 2 sessions of physical therapy to complete. He reports many years ago he had the ?cortisone ?injection he does not remember if it helped his pain. The patient had an MRI at [place] and results of the MRI dictated as below. He is generally healthy individual with history of coronary artery bypass grafting and prostate problems he also has a history of kyphoplasty, surgical history includes hernia surgery and ORIF of the leg which he sustained while 17. He denies smoking cigarettes admits to wine drinks a day denies recreational drugs and admits caffeinated beverages. 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 Annual physical exam Eczema Vertebral fracture, osteoporotic Hx of fracture of leg Tubular adenoma of colon Abdominal aortic aneurysm History of fracture of left hip Depression with anxiety GERD (gastroesophageal reflux disease) Hypercholesterolemia Hypertension, essential, benign CAD (coronary artery disease) Personal history of nicotine dependence Rotator cuff arthropathy of right shoulder Surgical History History of left inguinal hernia repair (07/16/22) Hx of bilateral cataract extraction Hx of right inguinal hernia repair History of prostate biopsy History of esophagogastroduodenoscopy (EGD) History of colonoscopy (~07/15/24) History of appendectomy (~2014) S/P CABG x 5 (~2005) Family History Father Lung cancer Social History Housing: House Are you a primary neonatal intensive care nurse to a significant other at home: No Do you presently have visiting nurse or other home services: No Alcohol intake: current Alcohol intake frequency: 0-2 drinks per day Alcohol type: wine Patient Tobacco Use Status: Former Tobacco user Tobacco use type: Cigarette Years Smoked: (onset 10yo, 1-2.5ppd x54pyh, 100pyh, quit 2008) service: No Current occupational status: retired Cognitive needs: Yes (cane ) Hearing needs: Yes (b/l hearing aids) Vision needs: No Review of Systems Const All systems reviewed & are unremarkable except as noted in HPI and below ENT Reports Normal hearing present Neuro Reports Normal hearing present, Denies Abnormal speech present, Denies confusion and Denies Sensory deficit (Neuro) Psych Denies confusion Physical Exam Vital Signs: Last Vital Signs Pulse 57 06/07/25 10:57 Resp 16 06/07/25 10:57 BP 147/69 H 06/07/25 10:57 Pulse Ox 96 06/07/25 10:57 Oxygen Delivery Method Room Air 06/07/25 10:57 BMI result Body Mass Index 26.9 Const General: no acute distress; No confusion Orientation/consciousness: patient oriented x3 and No confusion Eyes General: appearance normal, both eyes and all related structures Pupils: Equal, round and reactive pupils present EOM: EOMs intact bilaterally Neck Neck: Yes full ROM Chest Chest palpation & inspection: normal inspection of the chest Resp Effort & Inspection: normal respiratory effort, able to speak in complete sentences, normal respiratory pattern, no audible wheezes and no cough Cardio Jugular venous distension: no JVD GI Inspection: Yes normal to inspection Back/Spine/Pelvis Other: He is able to stand on bilateral tiptoes in bilateral heels with some difficulty. Flexing forward and flexing backwards aggravate his pain minimally. Henry test is positive on the right, however other sacroiliac joint provocation tests are negative. Loading test is negative. No tenderness on palpation in the projection of paraspinal spinal region of the lumbar spine. Neuro General: patient oriented x3, gait normal and No confusion Cranial nerves: Yes CN's II-XII intact bilaterally, Yes Equal, round and reactive pupils present, Yes Normal hearing present and Yes Ability to bilaterally elevate shoulders present Speech: No Abnormal speech present Gait exam (Neuro): Normal gait present Motor exam (neuro): 5/5 motor strength present throughout Sensory Exam: No Sensory deficit (Neuro) Extrem General: No pedal edema Psych Speech and movement: Normal speech and movement present Affect: normal affect Attitude: cooperative Thought process: Normal thought process present Thought content: Normal thought content present Insight: Good insight present (Psych) Judgement: Good judgement present (Psych) Results Reviewed Results Reviewed: MRI lumbar spine [facility] 12/23/2021. Findings [id number] levoscoliosis of the lumbar spine. No significant subluxation. [id number] chronic compression fracture of L1. Mild chronic depression of the superior endplate of L4 with minimal loss of height. Mild loss of height and anterior wedging of the L2 vertebral body with marrow edema. No retropulsion of bone. There is moderate severe loss of height of L3 which exhibits configuration and mild retropulsion of the posterior inferior margin of L3. Hazy STIR hyper intensity of L3 is noted which is less intense than the edema reported within L2. The L4-5 also severely diminished in height on the right. Severe loss of height on the left side of L5-S1. Mild overall all loss of height of L1-L2. No spondylo lysis. Mild Modic type 1 endplate changes presently at L4-5. Conus terminates at L1. Aneurysmal dilatation of the visualized infrarenal abdominal aorta. 33 mm diameter. No hematoma. Fatty atrophy of the posterior paraspinal musculature. L1-L2 no central canal or foraminal stenosis. L2-L3 mild broad-based posterior disc bulge and facet arthrosis. Minimal central canal narrowing. Mild bilateral foraminal narrowing. L3-L4 concentric disc osteophyte complex with facet arthrosis and ligamentum flavum infolding. Moderate central canal stenosis. Moderate right and moderate severe left foraminal stenosis. Crowding of the exiting left L3 nerve roots. L4-5 concentric disc osteophyte complex and facet arthrosis. Mild central canal stenosis. Bilateral subarticular recess narrowing with crowding of the L5 nerve roots. Moderate to severe right and mild left foraminal stenosis. L5-S1 concentric disc osteophyte complex. Mild facet arthrosis. Minimal central canal narrowing. Mild right and moderate to severe left foraminal narrowing with crowding of the exiting left L5 nerve root. Assessment & Plan Assessment & Plan (1) Spondylosis of lumbar region without myelopathy or radiculopathy: Code(s): M47.816 - Spondylosis without myelopathy or radiculopathy, lumbar region Category: Medical (2) Spinal stenosis: Code(s): M48.00 - Spinal stenosis, site unspecified Category: Medical (3) Chronic pain syndrome: Code(s): G89.4 - Chronic pain syndrome Category: Medical Plan I offered this patient diagnostic injections to rule out possible sacroiliitis and possible spondylosis as source of his pain. Unfortunately patient is very negative about the injections. He is completing his physical therapy and he has intention to continue home exercise program. He is able to walk 2-1/2 miles a day. He is able to tolerate his pain with activities, at rest he does not have any pain. I recommended the patient that if he will change his mind to give us a call and we will attempt to do injections on this patient. Coding Level of Care Code New Pt Level 3 (61549) Diagnoses Spondylosis of lumbar region without myelopathy or radiculopathy M47.816 Spinal stenosis M48.00 Chronic pain syndrome G89.4
[2025-06-07 10:57] VITALS: BP 147/69; PULSE 57; RESP 16; O2SAT 96; BMI 26.9
== END 2025-06-07 11:18 | disposition home or self-care (01) ==
LOC: HO.PMC 10:53
PROVIDERS: PCP Internal Medicine; Visit Provider Anesthesiology
DX: M47.816 Spondylosis without myelopathy or radiculopathy, lumbar region (principal); M48.00 Spinal stenosis, site unspecified; G89.4 Chronic pain syndrome
CPT/HCPCS: 99203

== ENCOUNTER → 2025-06-07 10:52 | Outpatient (BNVA) | payer MEDICARE, SELFPAY | PROVIDERS: PCP Internal Medicine; Visit Provider Anesthesiology | DX: M47.816 Spondylosis without myelopathy or radiculopathy, lumbar region (principal); M48.00 Spinal stenosis, site unspecified; G89.4 Chronic pain syndrome; Z87.891 Personal history of nicotine dependence | CPT/HCPCS: 99202 ==

== ENCOUNTER 2025-06-14 13:18 | Outpatient (RCR) | payer MEDICARE, SELFPAY ==
--- NOTE | 2025-04-26 15:34 | MHC.PT.EP ---
[facility] [place] [facility] [place] [facility] [place] [facility] [address] Eliu Gayle [address] [phone] F: [phone] F: [phone] F: [phone] F: [phone] Physical Therapy Plan of Care Date of Evaluation: 04/26/25 Date of Surgery: Diagnosis: AGE RELATED OSTEOPOROSIS W CURRENT PATHOLOGICAL FX VERTEBRAE -> PT to determine optimum devices for walking and improve the leg strength. Assessment: 80 YO MALE REF TO PT FOR H/O AGE RELATED OSTEOPOROSIS W CURRENT PATHOLOGICAL FX VERTEBRAE AND BALANCE DEFICITS. HE RESIDES ALONE AND CURRENTLY IS AMB W A CANE, WHICH IS TOO TALL FOR HIM. HE STATED HE HAS 2 NEAR FALLS/ DAY... HE WALKS 5 x WK OUTDOORS OR AT MALL. HE HAS SOME ASSIST FROM A DTR W HOUSECHORES, ETC. HE USES A WALKER AT NIGHT FOR BATHROOM USAGE. OBJECTIVE FINDINGS: DECR POSTURAL AWARENESS, (+) PELVIC ASYMM, DECR LEs FLEXIB-> ANKLES AND HS ESPEC; STRENGTH DEFICITS IN LEs, AND DISCOMFORT IN Rt LS. WE DISCUSSED THE PT POC AND THE Pt IS EAGER TO PROCEED, ULTIMATELY, ADDRESSING HIS DYNAMIC BALNCE/ GAIT MECHANICS. Frequency and Duration: The patient will be seen 2 x WK x 5 WKS Short Term Goals: INITIATE HEP IMPROVE AROM VALERIA ANKLES/ HIPS DECR LB DISCOMFORT TO 2-3 Half-Way Goals: Pt INDEP HEP Pt DEMON MORE EFFICIENT FUNCTIONAL MOB/ SAFETY W ADLs IMPROVED LEFI, AT EVAL 26/80 IMPROVED TUG, AT EVAL, 26 SEC, W CANE IMPROVED LEs STRENGTH Treatment Plan: Modalities to reduce pain, spasms and effusion. Manual therapy to restore motion and function. Therapeutic exercise to improve strength and flexibility. Neuromuscular re-education for posture and balance. Therapeutic activities to return to functional activities of daily living. Electronically signed by: RICKI RUIZPT Please sign and return to therapist. Thank you for your referral.
--- NOTE | 2025-06-14 13:58 | MHC.PT.DC ---
[facility] [place] Office [place] Office [place] Office [address] Eliu Gayle [address] [phone] F: [phone] F: [phone] F: [phone] F: [phone] Physical Therapy Discharge Report Diagnosis: AGE RELATED OSTEOPOROSIS W CURRENT PATHOLOGICAL FX VERTEBRAE -> PT to determine optimum devices for walking and improve the leg strength. Date of Surgery: Date of Evaluation: 04/26/25 Date of Discharge: 06/14/25 Treatments to Date: 10 Cancellations to Date: No Shows to Date: Discharge Status: Achieved Goals Improved Function Independent with HEP Patient Elected to Stop Discharge Summary: JOSE PRESENTED TODAY FEELING HE WAS READY TO CONT ON HIS OWN -> HIS LEFI TODAY AT D/C WAS 44/80 AND AT EVAL IT WAS 26/80. HIS TUG SCORE AT EVAL WAS 26 SEC AND TODAY AT D/C, 16 SEC. HIS LEs STRENGTH HAS IMPROVED , HOWEVER, HIS LEs FLEXIB HAS NOT IMPROVED SIGNIF HE WAS NOT PERF REGULARLY, WE DISCUSSED THIS AND RE-EDUC HIM . HE HAS MET HIS GOALS IN PT EXCEPT FOR LEs FLEXIB AND IS D/C THIS DATE AT THE Pt'S REQUEST. Electronically signed by: RICKI RUIZ,PT Please sign and return to therapist. Thank you for your referral.
== END 2025-06-14 13:58 | disposition home or self-care (01) ==
LOC: HO.PT 13:18
PROVIDERS: PCP Internal Medicine; Visit Provider Internal Medicine
DX: M80.08XD Age-related osteoporosis with current pathological fracture, vertebra(e), subsequent encounter for fracture with routine healing (principal); R26.2 Difficulty in walking, not elsewhere classified
CPT/HCPCS: 97110; 97112; 97163; 97530